=== PATIENT | female | born 1945 | race African-American/Black ===

== ENCOUNTER 2022-12-01 16:10 | Emergency (ER) | payer MEDICARE ==
[2022-12-01 16:22] VITALS: BP 143/58
--- NOTE | 2022-12-01 16:24 | ED Physician Documentation ---
History of Present Illness - Stated complaint Stated Complaint: LOWER BACK/HIP PX - Chief complaint Chief Complaint: Back Pain - History obtained from History obtained from: Patient - Additonal information Additional information: This is a twin 77-year-old woman with chronic musculoskeletal pain, back, both hips, left shoulder. She just moved from [place] and ran out 2 days ago of her long-acting morphine 15 mg twice a day that she took for this. She has an appointment with Dr. Valles to establish care in early December. PD PAST MEDICAL HISTORY - Present Medications Home Medications: Ambulatory Orders Medication Instructions Recorded Confirmed Atorvastatin [Lipitor] 20 mg PO HS 12/01/22 12/01/22 Estrogens, Conjugated Cream 1 gm VG QPM 12/01/22 12/01/22 [Premarin Cream] Lidocaine Patch 5% [Lidoderm Patch] 1 each TOP DAILY 12/01/22 12/01/22 Losartan Potassium 100 mg PO DAILY 12/01/22 12/01/22 Metoprolol Tartrate [Lopressor] 25 mg PO DAILY 12/01/22 12/01/22 Morphine ER [Ms Contin] 15 mg PO Q12H 12/01/22 12/01/22 Morphine ER [Ms Contin] 15 mg PO Q12H #20 tablet 12/01/22 Naloxone HCl [Narcan] 4 mg NS ONCE PRN 12/01/22 12/01/22 Pioglitazone [Actos] 15 mg PO DAILY 12/01/22 12/01/22 Timolol 0.5% Ophth Drops [Timoptic 1 drops OPTH BID 12/01/22 12/01/22 0.5% Ophth Drops] amLODIPine [Norvasc] 10 mg PO DAILY 12/01/22 12/01/22 - Allergies Allergies/Adverse Reactions: Allergies Allergy/AdvReac Type Severity Reaction Status Date / Time codeine AdvReac Unknown Verified 12/01/22 16:22 lisinopril AdvReac Unknown Verified 12/01/22 16:22 methocarbamol [From Robaxin] AdvReac Unknown Verified 12/01/22 16:23 PD ED PE NORMAL - Vitals Vital signs reviewed: Yes - General General: Alert and oriented X 3, No acute distress - Abdomen Abdomen: Non tender - Back Back: No spinal TTP - Neuro Neuro: Alert and oriented X 3, Normal speech Results - Vitals Vitals: Vital Signs - 24 hr 12/01/22 16:17 Temperature 36.7 C Heart Rate 90 Respiratory 18 Rate Blood Pressure 143/58 H O2 Saturation 99 Oxygen O2 Source Room air PD Medical Decision Making - ED course ED course: No evidence of acute emergency medical condition. She simply ran out of her medications due to removed. Discussed with her that the emergency department would not refill medications more than this 1 time. Departure - Departure Disposition: 01 Home, Self Care Clinical Impression: Chronic back pain Condition: Good Record reviewed to determine appropriate education?: Yes Instructions: ED Chronic Pain Management Prescriptions: Morphine ER [Ms Contin] 15 mg PO Q12H #20 tablet Comments: I sent your prescription electronically to [facility] in [place]. As discussed, the emergency department cannot refill chronic narcotics generally and the refill today will be a one-time occurrence to allow you to get some relief of your chronic pain until you see Dr. Valles. Return for new symptoms or for any concern for medical emergency. I am prescribing a short course of narcotic pain medication for you. These are potentially dangerous and addictive medications that should be used carefully. These medications may constipate you. Take an laou-qlb-wwlsnja stool softener (docusate) twice daily with plenty of water while taking these medications. If you go 24 hours without a bowel movement, take rgns-eqo-tnabewy miralax, per package instructions. Do not drink or drive while taking these medications. If you received narcotic or sedating medications while in the emergency department, do not drive for 24 hours. Store this medication in a safe, secure place and out of reach of children. It is a violation of federal law to give or sell this medication to another person or to use in a manner other than prescribed. The ED will not refill narcotic prescriptions, including prescriptions lost or stolen. To dispose of unwanted medications: 1. [facility] provides a drop box for medication in pill form only (no liquids) 8:00 am to 4:30 p.m. Tuesday-Tuesday in the lobby of the [facility], [address] [place] [address]. Empty pills into ziplock bag before disposal. Call [phone] for information. 2.[employer] is a free service available to all [facility] residents. Go to [email or web address] Note that many narcotic pain relievers also contain Tylenol/acetaminophen. Please ensure that your total dose of acetaminophen from all sources does not exceed 3 g (3000 mg) per day. Discharge Date/Time: 12/01/22 16:52
[2022-12-01] MEDS ORDERED: MORPHINE ER 15 MG TABLET PO STA ×2 (16:26→16:35)
== END 2022-12-01 16:52 | disposition home or self-care (01) ==
LOC: ED 16:10
DX: M54.50 Low back pain, unspecified (principal); G89.29 Other chronic pain; Z79.899 Other long term (current) drug therapy
CPT/HCPCS: 99282; 99283; A9270

== ENCOUNTER 2022-12-10 13:01 | Emergency (ER) | payer MEDICARE ==
[2022-12-10 13:21] VITALS: BP 118/48
--- NOTE | 2022-12-10 13:33 | ED Physician Documentation ---
PD HPI HEADACHE - Stated complaint Stated Complaint: HEADACHE - Chief complaint Chief Complaint: Neuro - History obtained from History obtained from: Patient - History of Present Illness Timing - onset: How many weeks ago (2) Timing - onset during: Light activity Timing - duration: Weeks (2) Timing - details: Gradual onset, Still present, Waxing and waning Worst headache ever?: No: Worst headache ever? Location: Front, Global Quality: Throbbing, Aching Associated symptoms: No: Fever, Stiff neck, Nausea, Weakness, Numbness, Vision changes Contributing factors: No: Hypertension, Recent illness, Trauma Similar symptoms before: Diagnosis (history of migraines, intermittent headaches in recent past. Intermittent and usually just day or two. No interval headaches. Has had current one for two weeks most of the time. Recently moved to [facility] with [employer] and does not have PMD here yet. Appt in about a month.) Recently seen: Not recently seen Review of Systems Constitutional: denies: Fever, Chills Eyes: denies: Loss of vision, Decreased vision Nose: denies: Rhinorrhea / runny nose, Congestion Throat: denies: Sore throat Respiratory: denies: Cough Skin: denies: Rash Neurologic: reports: Headache. 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 HEENT: Cataracts - Present Medications Home Medications: Ambulatory Orders Medication Instructions Recorded Confirmed Atorvastatin [Lipitor] 20 mg PO HS 12/01/22 12/01/22 Estrogens, Conjugated Cream 1 gm VG QPM 12/01/22 12/01/22 [Premarin Cream] Lidocaine Patch 5% [Lidoderm Patch] 1 each TOP DAILY 12/01/22 12/01/22 Losartan Potassium 100 mg PO DAILY 12/01/22 12/01/22 Metoprolol Tartrate [Lopressor] 25 mg PO DAILY 12/01/22 12/01/22 Morphine ER [Ms Contin] 15 mg PO Q12H 12/01/22 12/01/22 Morphine ER [Ms Contin] 15 mg PO Q12H #20 tablet 12/01/22 Naloxone HCl [Narcan] 4 mg NS ONCE PRN 12/01/22 12/01/22 Pioglitazone [Actos] 15 mg PO DAILY 12/01/22 12/01/22 Timolol 0.5% Ophth Drops [Timoptic 1 drops OPTH BID 12/01/22 12/01/22 0.5% Ophth Drops] amLODIPine [Norvasc] 10 mg PO DAILY 12/01/22 12/01/22 HYDROcod/ACETAM 5/325 [[place] 5/325] 1 ea PO Q6H PRN #15 tablet 12/10/22 dexAMETHasone [Decadron] 4 mg PO DAILY #5 tablet 12/10/22 - Allergies Allergies/Adverse Reactions: Allergies Allergy/AdvReac Type Severity Reaction Status Date / Time codeine AdvReac Unknown Verified 12/01/22 16:22 lisinopril AdvReac Unknown Verified 12/01/22 16:22 methocarbamol [From Robaxin] AdvReac Unknown Verified 12/01/22 16:23 - Social History Does the pt smoke?: Yes Smoking Status: Current every day smoker Does the pt drink ETOH?: No Does the pt have substance abuse?: No - Immunizations Immunizations are current?: Yes PD ED PE NORMAL - Vitals Vital signs reviewed: Yes - General General: Alert and oriented X 3, No acute distress, Well developed/nourished - HEENT HEENT: PERRL, EOMI - Neck Neck: Supple, no meningeal sign, No bony TTP, No adenopathy - Cardiac Cardiac: RRR, No murmur - Respiratory Respiratory: Clear bilaterally - Abdomen Abdomen: Soft, Non tender - Derm Derm: Normal color, Warm and dry - Extremities Extremities: No edema, No calf tenderness / cord Results - Vitals Vitals: Oxygen O2 Source Room air PD Medical Decision Making - ED course Complexity details: considered differential (consider prolonged migraine. Her prior headaches however do not have migraine chracter necessarily. Other forms headache instead. No headache between flares. No neuro symptoms focally. She say s seen in ER back in home state 3 months ago with head CT at that time. ), d/w patient ED course: the patient with 2 week headache without focal neuro deficits. Functioning okay with ADLs and moving activities. She states she had CT head 3 months ago that was okay, and did not feel another was needed. I was going to give her IV fluids and meds targeted for migraine. She changed her mind and declined that approach, and instead would prefer to just get Rx for her and to head home with . Departure - Departure Disposition: 01 Home, Self Care Clinical Impression: Headache Condition: Stable Record reviewed to determine appropriate education?: Yes Instructions: ED Cephalgia Unspecified Prescriptions: dexAMETHasone [Decadron] 4 mg PO DAILY #5 tablet HYDROcod/ACETAM 5/325 [[place] 5/325] 1 ea PO Q6H PRN #15 tablet PRN Reason: Pain Comments: We can try combination of the anti-inflammatory along with some Tylenol at 500 mg 4 times daily for the next week or so to help with your headache. Recheck if not improved well over the next day or 2. Add hydrocodone every 6 hours if needed for headache in the short-term. Stay well-hydrated and continue your other usual medicines. Recheck if not improved over the next several days or so return if worsening. I sent prescriptions to [facility] pharmacy. I am prescribing a short course of narcotic pain medication for you. These are potentially dangerous and addictive medications that should be used carefully. These medications may constipate you. Take an jpqy-agj-ubgcirv stool softener s uch as docusate twice daily with plenty of water while taking these medications. If you go 24 hours without a bowel movement, take ubsa-bej-beyvsux MiraLAX, per package instructions. Do not drink or drive while taking these medications. If you received narcotic or sedating medications while in the emergency department do not drive for 24 hours. Store this medication in a safe, secure place and out of reach of children. It is a violation of federal law to give or sell this medication to another person or to use in a manner other than prescribed. The ED will not refill narcotic prescriptions, including prescriptions lost or stolen. You can dispose of unwanted medications at the [facility]'s office or at several pharmacies such as [facility]. Forms: PCP List Discharge Date/Time: 12/10/22 15:47
[2022-12-10] MEDS ORDERED: KETOROLAC 15 MG/ML VIAL IVP STA (14:22)
[2022-12-10] MEDS ORDERED: SODIUM CHLORIDE 0.9% 1,000 ML IV STA (14:22)
[2022-12-10] MEDS ORDERED: ONDANSETRON 4 MG/2 ML VIAL IVP STA (14:23)
[2022-12-10] MEDS ORDERED: ACETAMINOPHEN 325 MG TABLET PO STA (14:23)
[2022-12-10] MEDS ORDERED: KETOROLAC 15 MG/ML VIAL IM STA (14:54)
== END 2022-12-10 15:47 | disposition home or self-care (01) ==
LOC: ED 13:01
DX: R51.9 Headache, unspecified (principal); F17.200 Nicotine dependence, unspecified, uncomplicated
CPT/HCPCS: 96372; 99283; A9270; 80053; 83690; 85025; 85651

== ENCOUNTER 2022-12-14 15:43 | Emergency (ER) | payer MEDICARE ==
[2022-12-14 16:07] VITALS: BP 130/60; O2SAT 98
[2022-12-14] MEDS ORDERED: MORPHINE ER 15 MG TABLET PO STA (17:06)
--- NOTE | 2022-12-14 17:10 | ED Physician Documentation ---
History of Present Illness - Stated complaint Stated Complaint: SHOULDER/BACK PX - Chief complaint Chief Complaint: General - History obtained from History obtained from: Patient - History of Present Illness Timing: Chronic Pain level max: 8 Pain level now: 8 - Additonal information Additional information: Patient is a 77-year-old female who states that she recently moved here from [place]. She states she has established with a primary care provider and has an appointment in about [address] Valles. She has not seen him yet however. She states that she is usually on morphine 15 mg of the ER twice a day. Has been on this for several years. She states she is out of her medications and requesting pain medication refills. No new injuries. No new symptoms. 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 HEENT: Cataracts - Present Medications Home Medications: Ambulatory Orders Medication Instructions Recorded Confirmed Atorvastatin [Lipitor] 20 mg PO HS 12/01/22 12/01/22 Estrogens, Conjugated Cream 1 gm VG QPM 12/01/22 12/01/22 [Premarin Cream] Lidocaine Patch 5% [Lidoderm Patch] 1 each TOP DAILY 12/01/22 12/01/22 Losartan Potassium 100 mg PO DAILY 12/01/22 12/01/22 Metoprolol Tartrate [Lopressor] 25 mg PO DAILY 12/01/22 12/01/22 Morphine ER [Ms Contin] 15 mg PO Q12H 12/01/22 12/01/22 Morphine ER [Ms Contin] 15 mg PO Q12H #20 tablet 12/01/22 Naloxone HCl [Narcan] 4 mg NS ONCE PRN 12/01/22 12/01/22 Pioglitazone [Actos] 15 mg PO DAILY 12/01/22 12/01/22 Timolol 0.5% Ophth Drops [Timoptic 1 drops OPTH BID 12/01/22 12/01/22 0.5% Ophth Drops] amLODIPine [Norvasc] 10 mg PO DAILY 12/01/22 12/01/22 HYDROcod/ACETAM 5/325 [[place] 5/325] 1 ea PO Q6H PRN #15 tablet 12/10/22 dexAMETHasone [Decadron] 4 mg PO DAILY #5 tablet 12/10/22 Morphine ER [Ms Contin] 15 mg PO Q12H PRN #6 tablet 12/14/22 - Allergies Allergies/Adverse Reactions: Allergies Allergy/AdvReac Type Severity Reaction Status Date / Time codeine AdvReac Unknown Verified 12/14/22 15:52 lisinopril AdvReac Unknown Verified 12/14/22 15:52 methocarbamol [From Robaxin] AdvReac Unknown Verified 12/14/22 15:52 - Social History Does the pt smoke?: Yes Smoking Status: Current every day smoker Does the pt drink ETOH?: No Does the pt have substance abuse?: No - Immunizations Immunizations are current?: Yes PD ED PE NORMAL - Vitals Vital signs reviewed: Yes - General General: Alert and oriented X 3, No acute distress, Well developed/nourished - HEENT HEENT: Moist mucous membranes - Neck Neck: Supple, no meningeal sign - Cardiac Cardiac: RRR, Strong equal pulses - Respiratory Respiratory: No respiratory distress, Clear bilaterally - Back Back: No spinal TTP - Derm Derm: Warm and dry - Extremities Extremities: No edema, No calf tenderness / cord - Neuro Neuro: Alert and oriented X 3 - Psych Psych: Normal mood, Normal affect Results - Vitals Vitals: Vital Signs - 24 hr 12/14/22 15:52 Temperature 36.5 C Heart Rate 100 Respiratory 16 Rate Blood Pressure 130/60 O2 Saturation 98 Oxygen O2 Source Room air PD Medical Decision Making - ED course Complexity details: considered differential, d/w patient ED course: Patient here requesting refills of her chronic pain medications. Patient was informed this will be her second pain medication prescription from this emergency department. Informed her that all further pain medication refills will need to come from her primary care provider. Recommend she call her primary care provider in the morning to discuss her chronic pain medication. Patient has no new complaints or symptoms today. No loss of bowel or bladder control. No focal weakness. No fevers. No trauma. Patient counseled regarding signs and symptoms for which I believe and urgent re-evaluation would be necessary. Patient with good understanding of and agreement to plan and is comfortable going home at this time This document was made in part using voice recognition software. While efforts are made to proofread this document, sound alike and grammatical errors may occur. Departure - Departure Disposition: 01 Home, Self Care Clinical Impression: Chronic back pain Qualifiers: Back pain location: back pain in unspecified location Back pain laterality: unspecified Qualified Code(s): M54.9 - Dorsalgia, unspecified Condition: Good Instructions: ED Chronic Pain Management, ED Neck Back Pain General Follow-Up: All Valles MD [Provider Admit Priv/Credential] - All Valles MD [Provider Admit Priv/Credential] - Prescriptions: Morphine ER [Ms Contin] 15 mg PO Q12H PRN #6 tablet PRN Reason: pain Comments: As we discussed, we are unable to continue to refill your narcotic pain medication from the emergency department. All further refills will need to come from your primary care provider. I would recommend trying to call them to see if you can get an earlier appointment. You should also take your medical records with you to your first appointment. Your prescription was sent to [facility] in [place]. I am prescribing a short course of narcotic pain medication for you. These are potentially dangerous and addictive medications that should be used carefully. These medications may constipate you. Take an zgqp-pma-uqzxfed stool softener (docusate) twice daily with plenty of water while taking these medications. If you go 24 hours without a bowel movement, take mvih-zhl-beaangg miralax, per package instructions. Do not drink or drive while taking these medications. If you received narcotic or sedating medications while in the emergency department, do not drive for 24 hours. Store this medication in a safe, secure place and out of reach of children. It is a violation of federal law to give or sell this medication to another person or to use in a manner other than prescribed. The ED will not refill narcotic prescriptions, including prescriptions lost or stolen. To dispose of unwanted medications: 1. [facility] [address] in [place] has a medication drop box. They accept prescription medications (in pill form) Tuesday through Tuesday 9:00 a.m. to 5:00 p.m. 2. [facility] accepts prescription medications (in pill form only) for disposal year round. Call for more information. 3. Contact the [facility] for the next [facility] sponsored prescription drug collection event. , [phone], or [phone]; Forms: PCP List Discharge Date/Time: 12/14/22 17:20
== END 2022-12-14 17:20 | disposition home or self-care (01) ==
LOC: ED 15:43
DX: Z76.0 Encounter for issue of repeat prescription (principal); M54.9 Dorsalgia, unspecified; I10 Essential (primary) hypertension; F17.200 Nicotine dependence, unspecified, uncomplicated
CPT/HCPCS: 99282; 99283; A9270

== ENCOUNTER 2022-12-17 21:03 | Outpatient (CLI) | payer MEDICARE | END 2022-12-17 23:59 | disposition short-term general hospital (02) | LOC: EMS 21:03 | DX: R10.84 Generalized abdominal pain (principal); R25.3 Fasciculation; R11.0 Nausea; R20.8 Other disturbances of skin sensation | CPT/HCPCS: A0425; A0427 ==

== ENCOUNTER 2023-06-01 20:15 | Outpatient (CLI) | payer MEDICARE, MEDICAID | END 2023-06-01 23:59 | disposition critical access hospital (66) | LOC: EMS 20:15 | DX: E11.65 Type 2 diabetes mellitus with hyperglycemia (principal); R00.0 Tachycardia, unspecified; I11.0 Hypertensive heart disease with heart failure; R42 Dizziness and giddiness; R51.9 Headache, unspecified; Z79.84 Long term (current) use of oral hypoglycemic drugs | CPT/HCPCS: A0425; A0429 ==

== ENCOUNTER 2023-06-01 20:35 | Emergency (ER) | payer MEDICARE, MEDICAID ==
[2023-06-01 21:12] LABS: BASOPHILS % (AUTO) 0.3 %; HCT - HEMATOCRIT 35.8 % (37.0-47.0); LYMPHOCYTES # (AUTO) 1.9 10^3/uL (1.5-3.5); LYMPHOCYTES % (AUTO) 12.4 %; MEAN CORPUSCULAR HGB CONC 33.5 g/dL (32.0-36.0); MEAN CORPUSCULAR VOLUME 86.5 fL (81.0-99.0); MEAN PLATELET VOLUME 10.2 fL (7.9-10.8); MONOCYTES # (AUTO) 0.7 10^3/uL (0.0-1.0); MONOCYTES % (AUTO) 4.6 %; NEUTROPHILS % (AUTO) 78.1 %; NRBC ABSOLUTE COUNT (AUTO) 0.11 x10^3/uL; NUCLEATED RED BLOOD CELLS AUTO 0.7 /100WBC; PLT - PLATELET COUNT 239 10^3/uL (130-450); RED BLOOD COUNT 4.14 10^6/uL (4.20-5.40); RED CELL DISTRIBUTION WIDTH 14.6 % (12.0-15.0); WHITE BLOOD COUNT 15.4 x10^3/uL (4.8-10.8)
[2023-06-01 21:21] LABS: SLIDE REVIEW? Indicated
[2023-06-01 21:52] LABS: VBG BASE EXCESS -0.7 mmol/L (-2 - +2); VBG OXYGEN SATURATION 93.2 % (60-80); VBG PCO2 30.8 mmHg (41-51); VBG PH 7.472 (7.31-7.41); VBG PO2 67.4 mmHg (25-47)
[2023-06-01 21:55] LABS: ALBUMIN 3.7 g/dL (3.2-5.5); ALBUMIN/GLOBULIN RATIO 1.2 (1.0-2.2); BILIRUBIN,TOTAL 0.5 mg/dL (0.2-1.0); CALCIUM 9.3 mg/dL (8.5-10.3); CREATININE 1.4 mg/dL (0.6-1.3); POTASSIUM 3.8 mmol/L (3.5-4.5); TOTAL PROTEIN 6.8 g/dL (6.4-8.9)
[2023-06-01 22:00] LABS: BILIRUBIN,URINE NEGATIVE (NEGATIVE); GLUCOSE, URINE (UA) 500 mg/dL (NEGATIVE); KETONES,URINE (UA) NEGATIVE (NEGATIVE); LEUKOCYTE ESTERASE, URINE SMALL (NEGATIVE); NITRITE,URINE NEGATIVE (NEGATIVE); OCCULT BLOOD,URINE SMALL (NEGATIVE); PROTEIN,URINE NEGATIVE (NEGATIVE); UROBILINOGEN,URINE 0.2 (NORMAL) E.U./dL (NORMAL)
[2023-06-01 22:05] LABS: CLARITY,URINE HAZY (CLEAR)
[2023-06-01 22:14] LABS: AMORPHOUS SEDIMENT,UR Rare /LPF; BACTERIA,URINE Many /HPF (None Seen); SQUAMOUS EPITHELIAL CELL,UR FEW Squamous (<= Few); WBC CLUMPS,URINE PRESENT
[2023-06-01] MEDS ORDERED: INSULIN REGULAR HUMAN 300 UNIT/3 ML VIAL IVP STA (22:38)
[2023-06-01 22:53] LABS: DIFFERENTIAL COMMENT MANUAL=AUTO DIFF; PLATELET ESTIMATE, MANUAL NORMAL (130-450,000) (NORMAL); PLATELET MORPHOLOGY NORMAL APPEARANCE (NORMAL); RBC MORPHOLOGY (MULTIPLE) NORMAL APPEARANCE (NORMAL)
--- NOTE | 2023-06-02 00:57 | ED Physician Documentation ---
History of Present Illness - Stated complaint Stated Complaint: HYPERGLYCEMIA - Chief complaint Chief Complaint: General - History obtained from History obtained from: Patient, Family () - Additonal information Additional information: 77-year-old woman with past medical history of diabetes, high blood pressure, hyperlipidemia, coronary artery disease presents with headache, malaise, generalized weakness for the past couple days and hyperglycemia this evening at her assisted living facility prompting her to come to the ER. Denies fever, chills, chest pain, shortness of breath, cough, vomiting, diarrhea, urinary symptoms. Review of Systems Constitutional: denies: Fever, Chills Nose: denies: Rhinorrhea / runny nose Throat: denies: Sore throat Cardiac: denies: Chest pain / pressure Respiratory: denies: Dyspnea, Cough GI: reports: Nausea. 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 HEENT: Cataracts - Present Medications Home Medications: Ambulatory Orders Medication Instructions Recorded Confirmed Atorvastatin [Lipitor] 20 mg PO HS 12/01/22 12/01/22 Estrogens, Conjugated Cream 1 gm VG QPM 12/01/22 12/01/22 [Premarin Cream] Lidocaine Patch 5% [Lidoderm Patch] 1 each TOP DAILY 12/01/22 12/01/22 Losartan Potassium 100 mg PO DAILY 12/01/22 12/01/22 Metoprolol Tartrate [Lopressor] 25 mg PO DAILY 12/01/22 12/01/22 Morphine ER [Ms Contin] 15 mg PO Q12H 12/01/22 12/01/22 Morphine ER [Ms Contin] 15 mg PO Q12H #20 tablet 12/01/22 Naloxone HCl [Narcan] 4 mg NS ONCE PRN 12/01/22 12/01/22 Pioglitazone [Actos] 15 mg PO DAILY 12/01/22 12/01/22 Timolol 0.5% Ophth Drops [Timoptic 1 drops OPTH BID 12/01/22 12/01/22 0.5% Ophth Drops] amLODIPine [Norvasc] 10 mg PO DAILY 12/01/22 12/01/22 HYDROcod/ACETAM 5/325 [[place] 5/325] 1 ea PO Q6H PRN #15 tablet 12/10/22 dexAMETHasone [Decadron] 4 mg PO DAILY #5 tablet 12/10/22 Morphine ER [Ms Contin] 15 mg PO Q12H PRN #6 tablet 12/14/22 Cefpodoxime Proxetil [Vantin] 200 mg PO Q12H #28 tablet 06/02/23 - Allergies Allergies/Adverse Reactions: Allergies Allergy/AdvReac Type Severity Reaction Status Date / Time codeine AdvReac Unknown Verified 06/01/23 20:42 lisinopril AdvReac Unknown Verified 06/01/23 20:42 methocarbamol [From Robaxin] AdvReac Unknown Verified 06/01/23 20:42 - Social History Does the pt smoke?: Yes Smoking Status: Current every day smoker Does the pt drink ETOH?: No Does the pt have substance abuse?: No - Immunizations Immunizations are current?: Yes PD ED PE NORMAL - Vitals Vital signs reviewed: Yes - General General: Alert and oriented X 3, No acute distress, Other (Elderly appearing) - HEENT HEENT: Atraumatic, PERRL, EOMI, Moist mucous membranes, Pharynx benign - Neck Neck: Supple, no meningeal sign - Cardiac Cardiac: RRR - Respiratory Respiratory: No respiratory distress, Clear bilaterally - Abdomen Abdomen: Non tender, Non distended - Derm Derm: Normal color, Warm and dry - Extremities Extremities: No deformity, Other (1+ bilateral pitting edema) - Neuro Neuro: Alert and oriented X 3, No motor deficit, No sensory deficit - Psych Psych: Normal mood, Normal affect Results - Vitals Vitals: Vital Signs - 24 hr 06/01/23 20:42 Temperature 36.8 C Heart Rate 100 Respiratory 20 Rate Blood Pressure 165/95 H O2 Saturation 100 Oxygen O2 Source Room air - Labs Labs: Laboratory Tests 06/01/23 06/01/23 06/01/23 21:00 21:00 21:00 WBC 15.4 H RBC 4.14 L Hgb 12.0 Hct 35.8 L MCV 86.5 MCH 29.0 MCHC 33.5 RDW 14.6 Plt Count 239 MPV 10.2 Neut # (Auto) 12.0 H Lymph # (Auto) 1.9 [place] # (Auto) 0.7 Eos # (Auto) 0.0 Baso # (Auto) 0.0 Absolute Nucleated RBC 0.11 Band Neuts % (Manual) Not Reportable Abnorm Lymph % (Manual) Not Reportable Nucleated RBC % 0.7 Neutrophils # (Manual) Not Reportable Lymphocytes # (Manual) Not Reportable Monocytes # (Manual) Not Reportable Eosinophils # (Manual) Not Reportable Basophils # (Manual) Not Reportable Differential Comment MANUAL=AUTO DIFF Manual Slide Review Indicated Platelet Estimate NORMAL (130-450,000) Platelet Morphology NORMAL APPEARANCE RBC Morph Micro Appear NORMAL APPEARANCE VBG pH VBG pCO2 VBG pO2 VBG HCO3 VBG Total CO2 VBG O2 Saturation VBG Base Excess Sodium 129 L Potassium 3.8 Chloride 88 L Carbon Dioxide 27 Anion Gap 14.0 H BUN 96 H* Creatinine 1.4 H Estimated GFR (MDRD) 44 L Glucose 509 H* POC Whole Bld Glucose Calcium 9.3 Total Bilirubin 0.5 AST 14 ALT 26 Alkaline Phosphatase 95 Total Protein 6.8 Albumin 3.7 Globulin 3.1 Albumin/Globulin Ratio 1.2 Lipase 204 H Urine Color Urine Clarity Urine pH Ur Specific [place] Urine Protein Urine Glucose (UA) Urine Ketones Urine Occult Blood Urine Nitrite Urine Bilirubin Urine Urobilinogen Ur Leukocyte Esterase Urine RBC Urine WBC Urine WBC Clumps Ur Squamous Epith Cells Amorphous Sediment Urine Bacteria Ur Microscopic Review Urine Culture Comments Serum Ketones NEGATIVE 06/01/23 06/01/23 06/01/23 21:30 21:48 22:29 WBC RBC Hgb Hct MCV MCH MCHC RDW Plt Count MPV Neut # (Auto) Lymph # (Auto) [place] # (Auto) Eos # (Auto) Baso # (Auto) Absolute Nucleated RBC Band Neuts % (Manual) Abnorm Lymph % (Manual) Nucleated RBC % Neutrophils # (Manual) Lymphocytes # (Manual) Monocytes # (Manual) Eosinophils # (Manual) Basophils # (Manual) Differential Comment Manual Slide Review Platelet Estimate Platelet Morphology RBC Morph Micro Appear VBG pH 7.472 H VBG pCO2 30.8 L VBG pO2 67.4 H VBG HCO3 22.0 L VBG Total CO2 23.0 L VBG O2 Saturation 93.2 H VBG Base Excess -0.7 Sodium Potassium Chloride Carbon Dioxide Anion Gap BUN Creatinine Estimated GFR (MDRD) Glucose POC Whole Bld Glucose 441 H Calcium Total Bilirubin AST ALT Alkaline Phosphatase Total Protein Albumin Globulin Albumin/Globulin Ratio Lipase Urine Color YELLOW Urine Clarity HAZY Urine pH 6.0 Ur Specific [place] <=1.005 Urine Protein NEGATIVE Urine Glucose (UA) 500 H Urine Ketones NEGATIVE Urine Occult Blood SMALL H Urine Nitrite NEGATIVE Urine Bilirubin NEGATIVE Urine Urobilinogen 0.2 (NORMAL) Ur Leukocyte Esterase SMALL H Urine RBC 6-10 H Urine WBC 6-10 H Urine WBC Clumps PRESENT Ur Squamous Epith Cells FEW Squamous Amorphous Sediment Rare Urine Bacteria Many H Ur Microscopic Review INDICATED Urine Culture Comments INDICATED Serum Ketones 06/02/23 00:47 WBC RBC Hgb Hct MCV MCH MCHC RDW Plt Count MPV Neut # (Auto) Lymph # (Auto) [place] # (Auto) Eos # (Auto) Baso # (Auto) Absolute Nucleated RBC Band Neuts % (Manual) Abnorm Lymph % (Manual) Nucleated RBC % Neutrophils # (Manual) Lymphocytes # (Manual) Monocytes # (Manual) Eosinophils # (Manual) Basophils # (Manual) Differential Comment Manual Slide Review Platelet Estimate Platelet Morphology RBC Morph Micro Appear VBG pH VBG pCO2 VBG pO2 VBG HCO3 VBG Total CO2 VBG O2 Saturation VBG Base Excess Sodium Potassium Chloride Carbon Dioxide Anion Gap BUN Creatinine Estimated GFR (MDRD) Glucose POC Whole Bld Glucose 371 H Calcium Total Bilirubin AST ALT Alkaline Phosphatase Total Protein Albumin Globulin Albumin/Globulin Ratio Lipase Urine Color Urine Clarity Urine pH Ur Specific [place] Urine Protein Urine Glucose (UA) Urine Ketones Urine Occult Blood Urine Nitrite Urine Bilirubin Urine Urobilinogen Ur Leukocyte Esterase Urine RBC Urine WBC Urine WBC Clumps Ur Squamous Epith Cells Amorphous Sediment Urine Bacteria Ur Microscopic Review Urine Culture Comments Serum Ketones PD Medical Decision Making - ED course ED course: 77-year-old woman presents with uncomplicated hyperglycemia here in the emergency department that responded to IV insulin treatment. She has leukocytosis with white blood cell count of 15.4 and elevated BUN/creatinine of 96 and 1.4 without previous labs available. u/a shows +leukocyte esterase concerning for infection. Though she doesn't have dysuria or back pain, her generalized symptoms could be explained by uti therefore decision was made to go ahead and treat it. [facility]. return precautions given. plan to f/u outpatient with her pcp. Departure - Departure Disposition: Home, Self Care Clinical Impression: Hyperglycemia, Malaise, UTI (urinary tract infection) Condition: Stable Instructions: Hyperglycemia Prescriptions: Cefpodoxime Proxetil [Vantin] 200 mg PO Q12H #28 tablet Comments: You were seen in the emergency department for high blood sugar. You also had a high white blood cell count which can be a marker of inflammation in the body. If you develop fever or new or worsening symptoms then please return to the emergency department. Please follow-up with your primary care provider and return to the emergency department if you have any new or worsening symptoms or other concerns. Forms: PCP List
[2023-06-02 01:54] VITALS: BP 130/69; O2SAT 96
== END 2023-06-02 01:30 | disposition home or self-care (01) ==
LOC: EDUNIT# → ED 20:35
DX: N39.0 Urinary tract infection, site not specified (principal); R73.9 Hyperglycemia, unspecified; I10 Essential (primary) hypertension; F17.200 Nicotine dependence, unspecified, uncomplicated
CPT/HCPCS: 36415; 80053; 81001; 82009; 82803; 83690; 85025; 87086; 99283; 99284; J1815; 81003

== ENCOUNTER 2023-06-11 10:17 | Outpatient (CLI) | payer MEDICARE, MEDICAID | END 2023-06-11 23:59 | disposition critical access hospital (66) | LOC: EMS 10:17 | DX: R53.1 Weakness (principal); R41.0 Disorientation, unspecified; R53.81 Other malaise; R63.0 Anorexia | CPT/HCPCS: A0425; A0429 ==

== ENCOUNTER 2023-06-11 10:34 | Inpatient (IN) | payer MEDICARE, MEDICAID ==
--- NOTE | 2023-06-11 10:52 | ED Physician Documentation ---
PD HPI ALTERED MENTAL STATUS - Stated complaint Stated Complaint: WEAKNESS - History obtained from History obtained from: Patient, Family (spouse), EMS - History of Present Illness Timing - onset: Yesterday (feeling of general weakness reprised.), How many weeks ago (onset of general weakness with malaise and less intake about 2 weeks ago. Seen in ER 06/01/23 with eval, IV fluids, Labs and UA concerning for UTI. D/C on abx. Spouse says was improved reasonably for a week or so, then symptoms again the past couple of days.) Timing - details: Gradual onset, Still present, Waxing and waning (was improved for a week after last ER visit. Symptoms again the past 2-3 days.) Quality / character: Less responsive Associated symptoms: Dyspnea, NVD (nausea and less intake without diarrhea.), General weakness. No: Fever, Headache, Cough Contributing factors: Diabetic, Recent illness (seen ER 06/01/23 with possible UTI dx.) Basline status: Alert and oriented X 3, Ambulatory Similar symptoms before: No diagnosis Recently seen: Emergency Dept Review of Systems Constitutional: reports: Myalgias, Fatigue. denies: Fever Nose: denies: Rhinorrhea / runny nose, Congestion Throat: reports: Sore throat. denies: Oral lesions / sores Cardiac: denies: Chest pain / pressure Respiratory: reports: Dyspnea. denies: Cough GI: reports: Nausea. denies: Abdominal Pain, Vomiting, Diarrhea : denies: Dysuria Skin: denies: Rash Neurologic: reports: Generalized weakness. 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 HEENT: Cataracts - Present Medications Home Medications: Ambulatory Orders Medication Instructions Recorded Confirmed Atorvastatin [Lipitor] 20 mg PO HS 12/01/22 06/11/23 Estrogens, Conjugated Cream 1 gm VG QPM 12/01/22 06/11/23 [Premarin Cream] Lidocaine Patch 5% [Lidoderm Patch] 1 each TOP DAILY 12/01/22 06/11/23 Losartan Potassium 25 mg PO DAILY 12/01/22 06/11/23 Metoprolol Tartrate [Lopressor] 25 mg PO DAILY 12/01/22 06/11/23 Naloxone HCl [Narcan] 4 mg NS ONCE PRN 12/01/22 06/11/23 Timolol 0.5% Ophth Drops [Timoptic 1 drops OPTH BID 12/01/22 06/11/23 0.5% Ophth Drops] dexAMETHasone [Decadron] 4 mg PO DAILY #5 tablet 12/10/22 06/11/23 Morphine ER [Ms Contin] 15 mg PO Q12H PRN #6 tablet 12/14/22 06/11/23 Amitriptyline [Elavil] 10 mg PO HS 06/11/23 06/11/23 Docusate Sodium [Dulcolax Stool 100 mg PO DAILY 06/11/23 06/11/23 Softener] Furosemide [Lasix] 40 mg PO DAILY 06/11/23 06/11/23 hydroCHLOROthiazide [Hydrodiuril] 25 mg PO DAILY 06/11/23 06/11/23 metFORMIN [Glucophage] 500 mg PO ONCE 06/11/23 06/11/23 - Allergies Allergies/Adverse Reactions: Allergies Allergy/AdvReac Type Severity Reaction Status Date / Time codeine AdvReac Unknown Verified 06/01/23 20:42 lisinopril AdvReac Unknown Verified 06/01/23 20:42 methocarbamol [From Robaxin] AdvReac Unknown Verified 06/01/23 20:42 nicotine [From Nicoderm CQ] AdvReac Unknown Verified 06/11/23 10:51 - Social History Does the pt smoke?: Yes Smoking Status: Current every day smoker Does the pt drink ETOH?: No Does the pt have substance abuse?: No - Immunizations Immunizations are current?: Yes PD ED PE NORMAL - Vitals Vital signs reviewed: Yes - General General: Alert and oriented X 3, No acute distress, Well developed/nourished - HEENT HEENT: Pharynx benign - Neck Neck: Supple, no meningeal sign, No adenopathy - Cardiac Cardiac: RRR, No murmur - Respiratory Respiratory: No respiratory distress, Clear bilaterally - Abdomen Abdomen: Soft, Non tender, Non distended. No: Normal bowel sounds (decreased) - Back Back: No CVA TTP - Derm Derm: Normal color, Warm and dry - Extremities Extremities: No deformity, No calf tenderness / cord, Other (1+ edema in both lower legs without tednerness. ) - Neuro Neuro: Alert and oriented X 3, No motor deficit, Normal speech Results - Vitals Vitals: Vital Signs - 24 hr 06/11/23 06/11/23 10:44 14:17 Temperature 36.4 C L 35.6 C L Heart Rate 92 88 Respiratory 18 16 Rate Blood Pressure 110/52 L 132/58 H O2 Saturation 100 100 Oxygen O2 Source Room air - EKG (time done) 12:17 EKG releavant findings:: EKG personally interpreted by author of this note. Relevant findings are: Rate: Rate (enter#) (83) Rhythm: NSR [place]: Normal Intervals: Normal VT QRS: Normal Ischemia: Normal ST segments. No: ST elevation c/w ischemia, ST depression - Labs Labs: Laboratory Tests 06/11/23 06/11/23 06/11/23 11:03 11:03 11:03 WBC RBC Hgb Hct MCV MCH MCHC RDW Neut # (Auto) Lymph # (Auto) [place] # (Auto) Eos # (Auto) Baso # (Auto) Absolute Nucleated RBC Nucleated RBC % Manual Slide Review WBC Morphology Platelet Estimate Platelet Morphology RBC Morph Micro Appear Sodium 127 L Potassium 3.7 Chloride 86 L Carbon Dioxide 24 Anion Gap 17.0 H BUN 121 H* Creatinine 3.3 H Estimated GFR (MDRD) 16 L Glucose 136 H Lactic Acid 2.3 H Calcium 9.0 Magnesium 1.4 L Total Bilirubin 0.8 AST 28 ALT 29 Alkaline Phosphatase 68 Total Protein 5.6 L Albumin 3.3 Globulin 2.3 Albumin/Globulin Ratio 1.4 Lipase 103 H TSH 0.40 Urine Color Urine Clarity Urine pH Ur Specific [place] Urine Protein Urine Glucose (UA) Urine Ketones Urine Occult Blood Urine Nitrite Urine Bilirubin Urine Urobilinogen Ur Leukocyte Esterase Urine RBC Urine WBC Ur Squamous Epith Cells Urine Bacteria Urine Yeast Ur Microscopic Review Urine Culture Comments Nasal Adenovirus (PCR) NOT DETECTED Nasal B. parapertussis DNA (PCR) NOT DETECTED Nasal Coronavir 229E PCR NOT DETECTED Nasal Coronavir HKU1 PCR NOT DETECTED Nasal Coronavir NL63 PCR NOT DETECTED Nasal Coronavir OC43 PCR NOT DETECTED Nasal Enterovir/Rhinovir PCR NOT DETECTED Nasal Influenza B PCR NOT DETECTED Nasal Influenza A PCR NOT DETECTED Nasal Parainfluen 1 PCR NOT DETECTED Nasal Parainfluen 2 PCR NOT DETECTED Nasal Parainfluen 3 PCR NOT DETECTED Nasal Parainfluen 4 PCR NOT DETECTED Nasal RSV (PCR) NOT DETECTED Nasal B.pertussis DNA PCR NOT DETECTED Nasal C.pneumoniae (PCR) NOT DETECTED Sesar Human Metapneumo PCR NOT DETECTED Nasal M.pneumoniae (PCR) NOT DETECTED Nasal SARS-CoV-2 (PCR) NOT DETECTED 06/11/23 06/11/23 12:15 13:59 WBC 18.9 H RBC 4.11 L Hgb 12.3 Hct 34.3 L MCV 83.5 MCH 29.9 MCHC 35.9 RDW 14.7 Neut # (Auto) 15.6 H Lymph # (Auto) 1.8 [place] # (Auto) 1.1 H Eos # (Auto) 0.0 Baso # (Auto) 0.0 Absolute Nucleated RBC 0.09 Nucleated RBC % 0.5 Manual Slide Review Indicated WBC Morphology NORMAL APPEARANCE Platelet Estimate Platelet Morphology PLATELET CLUMPING RBC Morph Micro Appear NORMAL APPEARANCE Sodium Potassium Chloride Carbon Dioxide Anion Gap BUN Creatinine Estimated GFR (MDRD) Glucose Lactic Acid Calcium Magnesium Total Bilirubin AST ALT Alkaline Phosphatase Total Protein Albumin Globulin Albumin/Globulin Ratio Lipase TSH Urine Color YELLOW Urine Clarity SL. CLOUDY Urine pH 6.0 Ur Specific [place] 1.010 Urine Protein NEGATIVE Urine Glucose (UA) NEGATIVE Urine Ketones NEGATIVE Urine Occult Blood TRACE-LYSE Urine Nitrite NEGATIVE Urine Bilirubin NEGATIVE Urine Urobilinogen 0.2 (NORMAL) Ur Leukocyte Esterase MODERATE H Urine RBC 6-10 H Urine WBC 6-10 H Ur Squamous Epith Cells MANY Squamous H Urine Bacteria Rare Urine Yeast PRESENT Ur Microscopic Review INDICATED Urine Culture Comments NOT INDICATED Nasal Adenovirus (PCR) Nasal B. parapertussis DNA (PCR) Nasal Coronavir 229E PCR Nasal Coronavir HKU1 PCR Nasal Coronavir NL63 PCR Nasal Coronavir OC43 PCR Nasal Enterovir/Rhinovir PCR Nasal Influenza B PCR Nasal Influenza A PCR Nasal Parainfluen 1 PCR Nasal Parainfluen 2 PCR Nasal Parainfluen 3 PCR Nasal Parainfluen 4 PCR Nasal RSV (PCR) Nasal B.pertussis DNA PCR Nasal C.pneumoniae (PCR) Sesar Human Metapneumo PCR Nasal M.pneumoniae (PCR) Nasal SARS-CoV-2 (PCR) - Rads (name of study) No standard instances Relevant Findings:: Prelim report reviewed (prominent interstitium with focal infiltrate. Consider atypical infection vs atelectasis or failure. ), EMP independent interpretation of test PD Medical Decision Making - ED course Complexity details: re-evaluated patient (The patient did have difficult IV access. Nurses were not able to get a peripheral IV. We did try ultrasound- guided peripheral with assistance from anesthesia on-call. They are unable to find. At this point did request anesthesia to place a central line as the patient will be admitted to the hos), considered differential, d/w patient, d/w family (supplemental information from pt spouse and daughter. ), d/w clothing consultant (Hospitalist Dr. Moe. ) ED course: The patient presents with flulike illness with general fatigue and myalgias nausea with decreased appetite. No diarrhea. No dysuria. She denies chest or belly pain per se. She had had similar symptoms about 2 weeks ago and was seen in the ER approximately 10 days ago. Testing at the time showed a possible UTI and was given antibiotics believe Ciefpodoxime. Her spouse states the patient seemed to better over the next week with somewhat increased intake and less fatigue and aches. However symptoms again the last 2 to 3 days. The urine culture from the visit 06/02/2023 did not have a positive growth but j ust mixed sandra so apparently not true UTI. There may be an some component of it since the patient did seem to improve with antibiotics versus just correlated. The patient now with the recurrent general symptoms. In particular on the most recent ER visit, flu testing or viral testing was not done and her symptoms may have represented a viral illness with now reapprising of her symptoms. Her vi ral panel test is negative today but does not preclude a recent viral illness. The urine today does not show signs of obvious infection. Chest x-ray is clear without any signs of infiltrates or pneumonia. The patient's blood count does show an elevated white count of 18,000. This is of course is nonspecific. Chemistry panel otherwise shows a notable elevation of her creatinine today at 3.3 with the previous one 1.4. Sodium is slightly lower at 127 compared to 129 on the last visit. Magnesium is slightly low at 1.4. Blood sugar on this visit is only moderately elevated at 371 and had been more highly elevated on the previous visit (400s). The patient's bicarbonate is normal. I did not do a specific blood gas. The patient is having less or oral intake with a notable acute on chronic renal insufficiency/injury. Her electrolytes are off. Unclear the cause of her symptoms at this point. I talked with the hospitalist who will come to the ER and see the patient in resume place in the hospital. Departure - Departure Disposition: 66 [facility] DC/Xfer Clinical Impression: Hyponatremia, Acute on chronic renal insufficiency, Generalized muscle ache, Generalized weakness, Leukocytosis, Diabetes, Hypomagnesemia, Flu-like symptoms Condition: Stable Record reviewed to determine appropriate education?: Yes Forms: PCP List
[2023-06-11 11:39] LABS: THYROID STIMULATING HORMONE 0.4 uIU/mL (0.34-5.60)
[2023-06-11 11:54] LABS: ALBUMIN 3.3 g/dL (3.2-5.5); ALBUMIN/GLOBULIN RATIO 1.4 (1.0-2.2); BILIRUBIN,TOTAL 0.8 mg/dL (0.2-1.0); CREATININE 3.3 mg/dL (0.6-1.3); MAGNESIUM 1.4 mg/dL (1.7-2.3); POTASSIUM 3.7 mmol/L (3.5-4.5); TOTAL PROTEIN 5.6 g/dL (6.4-8.9)
[2023-06-11 12:02] LABS: B. PARAPERTUSSIS- RESP PCR PAN NOT DETECTED; B. PERTUSSIS- RESP PCR PANEL NOT DETECTED; C. PNEUMONIAE- RESP PCR PANEL NOT DETECTED; CORONAVIRUS 229E-RESP PCR NOT DETECTED; CORONAVIRUS HKU1-RESP PCR NOT DETECTED; CORONAVIRUS NL63-RESP PCR NOT DETECTED; CORONAVIRUS OC43-RESP PCR NOT DETECTED; HUMAN METAPNEUMOVIRUS NOT DETECTED; INFLUENZA A- RESP PCR PANEL NOT DETECTED; INFLUENZA B - RESP PCR PANEL NOT DETECTED; M. PNEUMONIAE- RESP PCR PANEL NOT DETECTED; PARAINFLUENZA VIRUS 1 NOT DETECTED; PARAINFLUENZA VIRUS 2 NOT DETECTED; PARAINFLUENZA VIRUS 3 NOT DETECTED; PARAINFLUENZA VIRUS 4 NOT DETECTED; RHINOVIRUS/ENTEROVIRUS NOT DETECTED; RSV- RESP PCR PANEL NOT DETECTED; SARS-CoV-2 -RESP PCR PANEL NOT DETECTED
--- NOTE | 2023-06-11 12:04 | XRAY Report ---
PROCEDURE: Chest 1V INDICATIONS: chest pain TECHNIQUE: One view of the chest was acquired. COMPARISON: None. FINDINGS: Surgical changes and devices: None. Lungs and pleura: Low lung volumes. Mildly prominent interstitium. Mediastinum: Normal heart size Bones and chest wall: Degenerative changes IMPRESSION: Limited single view radiograph with low lung volumes. Mildly prominent interstitium could represent a typical infection or edema. Consider future imaging surveillance to assess for resolution. No dense consolidation or pleural effusion. Reviewed by: Chao Shannon MD on 06/11/2023 12:02 PM PST Approved by: Chao Shannon MD on 06/11/2023 12:02 PM PST Station ID: [id number]
[2023-06-11 12:43] LABS: BASOPHILS % (AUTO) 0.2 %; EOSINOPHILS % (AUTO) 0.1 %; HCT - HEMATOCRIT 34.3 % (37.0-47.0); HGB - HEMOGLOBIN 12.3 g/dL (12.0-16.0); LYMPHOCYTES # (AUTO) 1.8 10^3/uL (1.5-3.5); LYMPHOCYTES % (AUTO) 9.7 %; MEAN CORPUSCULAR HEMOGLOBIN 29.9 pg (27.0-31.0); MEAN CORPUSCULAR HGB CONC 35.9 g/dL (32.0-36.0); MEAN CORPUSCULAR VOLUME 83.5 fL (81.0-99.0); MONOCYTES # (AUTO) 1.1 10^3/uL (0.0-1.0); MONOCYTES % (AUTO) 5.8 %; NEUTROPHILS # (AUTO) 15.6 10^3/uL (1.5-6.6); NEUTROPHILS % (AUTO) 82.1 %; NRBC ABSOLUTE COUNT (AUTO) 0.09 x10^3/uL; NUCLEATED RED BLOOD CELLS AUTO 0.5 /100WBC; RED BLOOD COUNT 4.11 10^6/uL (4.20-5.40); RED CELL DISTRIBUTION WIDTH 14.7 % (12.0-15.0); WHITE BLOOD COUNT 18.9 x10^3/uL (4.8-10.8)
[2023-06-11 12:57] LABS: PLATELET MORPHOLOGY PLATELET CLUMPING (NORMAL)
[2023-06-11 12:59] LABS: RBC MORPHOLOGY (MULTIPLE) NORMAL APPEARANCE (NORMAL); SLIDE REVIEW? Indicated; WBC MORPHOLOGY (MULTIPLE) NORMAL APPEARANCE (NORMAL)
[2023-06-11 14:28] LABS: BILIRUBIN,URINE NEGATIVE (NEGATIVE); GLUCOSE, URINE (UA) NEGATIVE (NEGATIVE); KETONES,URINE (UA) NEGATIVE (NEGATIVE); LEUKOCYTE ESTERASE, URINE MODERATE (NEGATIVE); NITRITE,URINE NEGATIVE (NEGATIVE); OCCULT BLOOD,URINE TRACE-LYSE (NEGATIVE); PROTEIN,URINE NEGATIVE (NEGATIVE); UROBILINOGEN,URINE 0.2 (NORMAL) E.U./dL (NORMAL)
[2023-06-11 14:34] LABS: CLARITY,URINE SL. CLOUDY (CLEAR)
[2023-06-11 14:41] LABS: BACTERIA,URINE Rare /HPF (None Seen); SQUAMOUS EPITHELIAL CELL,UR MANY Squamous (<= Few)
[2023-06-11 14:42] LABS: YEAST,URINE PRESENT
--- NOTE | 2023-06-11 15:37 | HISTORY & PHYSICAL EXAMINATION ---
Chief Complaint - Chief Complaint Chief Complaint: Altered Mental Status and weakness History of Present Illness - Admitted From Admitted From:: Emergency Room - History Obtained From Records Reviewed: Yes History obtained from: Family, patient and emergency room physician, Alex Pereira MD - History of Present Illness HPI Comment/Other: Deidra Marrufo is a 77-year-old woman who presented to the emergency room with complaints of weakness and altered mental status. Patient has been complaining of increased weakness for approximately 2 weeks. She was seen in the emergency room on June 01, 2023 and given IV fluids. Urinalysis was concerning for possible urinary tract infection and she was discharged from the emergency room on antibiotics. Other symptoms include increased shortness of breath and nausea. In the emergency room, a viral panel was performed that was negative.Urinalysis was also negative and chest x-ray demonstrates cephalization of vessels with no obvious opacification/focus of infection. Her significant other reports less oral intake over the last several weeks. History - Past Medical History Cardiovascular: reports: Hypertension, High cholesterol, Coronary artery disease Respiratory: reports: None Neuro: reports: None, Headaches Endocrine/Autoimmune: reports: None GI: reports: None [employer]: reports: None : reports: None HEENT: reports: Chronic vision loss Psych: reports: None Musculoskeletal: reports: Rheumatoid arthritis Derm: reports: None - Past Surgical History Ortho: reports: Spine surgery /[employer]: reports: section HEENT: reports: Cataracts Meds/Allgy - Home Medications Home Medications: Ambulatory Orders Medication Instructions Recorded Confirmed Atorvastatin [Lipitor] 20 mg PO HS 12/01/22 06/11/23 Estrogens, Conjugated Cream 1 gm VG QPM 12/01/22 06/11/23 [Premarin Cream] Lidocaine Patch 5% [Lidoderm Patch] 1 each TOP DAILY 12/01/22 06/11/23 Losartan Potassium 25 mg PO DAILY 12/01/22 06/11/23 Metoprolol Tartrate [Lopressor] 25 mg PO DAILY 12/01/22 06/11/23 Naloxone HCl [Narcan] 4 mg NS ONCE PRN 12/01/22 06/11/23 Timolol 0.5% Ophth Drops [Timoptic 1 drops OPTH BID 12/01/22 06/11/23 0.5% Ophth Drops] dexAMETHasone [Decadron] 4 mg PO DAILY #5 tablet 12/10/22 06/11/23 Morphine ER [Ms Contin] 15 mg PO Q12H PRN #6 tablet 12/14/22 06/11/23 Amitriptyline [Elavil] 10 mg PO HS 06/11/23 06/11/23 Docusate Sodium [Dulcolax Stool 100 mg PO DAILY 06/11/23 06/11/23 Softener] Furosemide [Lasix] 40 mg PO DAILY 06/11/23 06/11/23 hydroCHLOROthiazide [Hydrodiuril] 25 mg PO DAILY 06/11/23 06/11/23 metFORMIN [Glucophage] 500 mg PO ONCE 06/11/23 06/11/23 - Allergies Allergies/Adverse Reactions: Allergies Allergy/AdvReac Type Severity Reaction Status Date / Time codeine AdvReac Unknown Verified 06/01/23 20:42 lisinopril AdvReac Unknown Verified 06/01/23 20:42 methocarbamol [From Robaxin] AdvReac Unknown Verified 06/01/23 20:42 nicotine [From Nicoderm CQ] AdvReac Unknown Verified 06/11/23 10:51 Review of Systems - Constitutional Constitutional: reports: Fatigue, Weakness Exam - Vital Signs Vital Signs: Vital Signs x48h Temp Pulse Resp BP Pulse Ox 06/11/23 14:17 35.6 C L 88 16 132/58 H 100 06/11/23 10:44 36.4 C L 92 18 110/52 L 100 - Physical Exam General Appearance: positive: No acute distress, Mild distress Eyes Bilateral: positive: EOMI, No lid inflammation, Conjunctivae nml ENT: positive: Pharynx nml Neck: positive: Thyroid nml, No JVD, Trachea midline Respiratory: positive: Chest non-tender, Other (Fair air exchange in all lung hauser no wheezing no crackles.) Cardiovascular: positive: Other (Positive S1-S2 no extra heart sounds) Abdomen: positive: Non-tender, No organomegaly, Nml bowel sounds, No distention Conclusion/Plan - Problem List (1) Acute on chronic renal insufficiency Conclusion/Plan: Patient creatinine on June 01, 2023 was 1.4. Today her serum creatinine is 3.3. Patient has acute on chronic renal failure. She reports a decreased intake over the last several weeks. Plan: Initiate IV fluids with normal saline at 100 mL/h. Continue to monitor serum BUNs/creatinine. (2) Hyponatremia Patient has moderate hyponatremia. Plan: Normal saline at 100 mL an hour Continue to monitor serum sodium. (3) Hypomagnesia Plan: Continue to monitor and replace as needed. (4) Altered mental status Plan: Patient has some mild altered mental status at this time. Continue to monitor.Mental status changes are most likely multifactorial and secondary to hyponatremia and significant uremia with a BUN of 121. (5) Abnormal Lung Field Plan: Chest x-ray reveals cephalization of vessels and patient has significant lower extremity edema. I am concerned that she may have heart failure and plan is for her to undergo an echocardiogram to evaluate LV and RV function and to evaluate for valvular heart disease. - Lab Results Fish Bones: 06/11/23 12:15 06/11/23 11:03
--- NOTE | 2023-06-11 16:28 | ANESTHESIA PROCEDURE NOTE ---
Anesth Central Line Template - Central Line Central Line Preparation: Consent Obtained Central line location: Right IJ Central line type: Triple lumen Central line catheter tip site resides: Superior vena cava (SVC) Central line aftercare: Chlorhexidine disc placed, Secured, Placement confirmed, No pneumothorax, No complications, Pt tolerated well
--- NOTE | 2023-06-11 17:01 | XRAY Report ---
PROCEDURE: Chest for Line Placement INDICATIONS: check for central line placement TECHNIQUE: One view of the chest was acquired. COMPARISON: Chest x-ray earlier in the day FINDINGS: Surgical changes and devices: A right-sided central line can be seen, with the tip overlying the inf erior aspect of the superior vena cava, near the cavoatrial junction. Cervical spine fixation hardwar e is partially seen. Lungs and pleura: No pleural effusions or pneumothorax. Mild generalized interstitial prominence can be seen. Mediastinum: The aorta is prominent and tortuous. The cardiac contours are within normal limits. Bones and chest wall: No suspicious bony lesions. Age-appropriate degenerative changes are seen. O verlying soft tissues appear unremarkable. IMPRESSION: The tip of the right-sided central line can be seen overlying the inferior aspect of the superior sixto a cava. Mild generalized prominence can be seen. Please consider pulmonary edema. Differential diagnosis incl udes atypical infection. Reviewed by: Timothy Howe MD on 06/11/2023 4:00 PM [facility] Approved by: Timothy Howe MD on 06/11/2023 4:00 PM [facility] Station ID: [id number]
[2023-06-11] MEDS: SODIUM CHLORIDE 0.9% 1,000 ML IV SCH (18:49)
[2023-06-11] MEDS: SODIUM CHLORIDE FLUSH 0.9% 10 ML SYRINGE IVP SCH (18:49)
[2023-06-11] MEDS: MAGNESIUM OXIDE 400 MG TABLET PO SCH (19:05)
[2023-06-11] MEDS: SODIUM CHLORIDE 0.9% 1,000 ML IV STA (23:15)
[2023-06-11] MEDS: HEPARIN 5,000 UNIT/ML VIAL SUBQ SCH (23:24)
[2023-06-12] MEDS: ZINC OXIDE 20% OINT 30 GM TUBE TOP PRN (04:54)
[2023-06-12 06:06] LABS: BASOPHILS % (AUTO) 0.2 %; EOSINOPHILS % (AUTO) 0.2 %; HCT - HEMATOCRIT 33.7 % (37.0-47.0); HGB - HEMOGLOBIN 11.4 g/dL (12.0-16.0); LYMPHOCYTES # (AUTO) 1.7 10^3/uL (1.5-3.5); LYMPHOCYTES % (AUTO) 13.5 %; MEAN CORPUSCULAR HEMOGLOBIN 28.9 pg (27.0-31.0); MEAN CORPUSCULAR HGB CONC 33.8 g/dL (32.0-36.0); MEAN CORPUSCULAR VOLUME 85.5 fL (81.0-99.0); MEAN PLATELET VOLUME 10.9 fL (7.9-10.8); MONOCYTES # (AUTO) 0.7 10^3/uL (0.0-1.0); MONOCYTES % (AUTO) 5.7 %; NEUTROPHILS % (AUTO) 78.7 %; NRBC ABSOLUTE COUNT (AUTO) 0.07 x10^3/uL; NUCLEATED RED BLOOD CELLS AUTO 0.6 /100WBC; PLT - PLATELET COUNT 153 10^3/uL (130-450); RED BLOOD COUNT 3.94 10^6/uL (4.20-5.40); RED CELL DISTRIBUTION WIDTH 14.9 % (12.0-15.0); WHITE BLOOD COUNT 12.7 x10^3/uL (4.8-10.8)
[2023-06-12 06:47] LABS: CALCIUM 8.9 mg/dL (8.5-10.3); CREATININE 2.1 mg/dL (0.6-1.3); MAGNESIUM 1.5 mg/dL (1.7-2.3); POTASSIUM 2.9 mmol/L (3.5-4.5)
[2023-06-12] MEDS: SODIUM CHLORIDE FLUSH 0.9% 10 ML SYRINGE IVP PRN (08:28)
--- NOTE | 2023-06-12 09:02 | PHARMACY PROGRESS NOTE ---
- Best Possible Medication History Admit Date and Time: 06/11/23 1521 Processed by: Nursing As the person ultimately responsible for medication therapy, providers are able to order a medication from an existing home medication list in [facility] via the "Reconcile Routine" prior to Confirmation of that medication by office support clerk. Such practice is discouraged except when the physician, in their clinical judgment, deems that a medical need exists for a medication without regard to previous use.
[2023-06-12] MEDS: POTASSIUM CHLORIDE 20 MEQ/15 ML UDC PO ONE (11:27)
[2023-06-12] MEDS: NS W/40 MEQ KCL 1,000 ML IV SCH (11:27)
--- NOTE | 2023-06-12 23:13 | PROVIDER PROGRESS NOTE ---
Assessment/Plan - Problem List (1) Acute on chronic renal insufficiency Assessment/Plan: Patient creatinine on June 01, 2023 was 1.4. Today her serum creatinine is 3.3. Patient has acute on chronic renal failure. She reports a decreased intake over the last several weeks. Creatinine and uremia have significantly improved since admission. And are currently BUNs/creatinine 104/2.1 Plan: Continue IV fluids with normal saline at 100 mL/h. Continue to monitor serum BUNs/creatinine. (2) Hyponatremia Patient has moderate hyponatremia. Plan: Normal saline at 100 mL an hour Continue to monitor serum sodium. (3) Hypomagnesia Plan: Continue to monitor and replace as needed. (4) Altered mental status Plan: Patient has some mild altered mental status at this time. Continue to monitor.Mental status changes are most likely multifactorial and secondary to hyponatremia and significant uremia with a BUN of 121. (5) Abnormal Lung Field Plan: Chest x-ray reveals cephalization of vessels and patient has significant lower extremity edema. I am concerned that she may have heart failure and plan is for her to undergo an echocardiogram to evaluate LV and RV function and to evaluate for valvular heart disease. (6) Urinary tract infection Plan: One dose of fosfomycin - Current Meds Current Meds: Current Medications Generic Name Dose Route Start Last Admin Trade Name Freq PRN Reason Stop Dose Admin Heparin Sodium (Porcine) 5,000 unit 06/11/23 21:00 06/12/23 20:07 Heparin 5,000 Unit/Ml Vial SUBQ 5,000 unit BID SEN Administration Magnesium Oxide 400 mg 06/11/23 16:00 06/12/23 08:23 Magnesium Oxide 400 Mg Tablet PO 400 mg DAILYWM SEN Administration Multi-Ingredient Ointment 1 applic 06/12/23 00:37 06/12/23 14:43 Zinc Oxide 20% Oint 30 Gm Tube TOP 1 applic PRN PRN Administration Skin Care Sodium Chloride 10 ml 06/11/23 15:21 06/12/23 08:28 Sodium Chloride Flush 0.9% 10 Ml Syringe IVP 10 ml PRN PRN Administration NEEDED PER PROVIDER ORDERS Sodium Chloride 10 ml 06/11/23 17:00 06/12/23 20:08 Sodium Chloride Flush 0.9% 10 Ml Syringe IVP 10 ml 0100,0900,1700 [facility] Administration - Lab Result Fish Bone Diagrams: 06/12/23 04:59 06/13/23 05:20 - Additional Planning My Orders: My Active Orders 06/12/23 00:37 Zinc Oxide 20% Oint [Zinc Oxide] 1 applic TOP PRN PRN 06/12/23 Dinner DIET [Carb-controlled Diet] [DIET] 06/13/23 05:00 BMP - BASIC METABOLIC PANEL [CHEM] DAILYLAB MG [MAGNESIUM] [CHEM] Routine 06/13/23 09:00 Fosfomycin Tromethamine [MonuroL] 3 gm PO ONCE ONE Subjective - Subjective Patient Reports: Other (Alert. Denies chest pain, shortness of breath, abdominal pain. No other complaints at this time.) Objective Vital Signs: Vital Signs - 24 hr 06/12/23 06/12/23 06/12/23 00:00 08:10 16:01 Temperature 36.3 C L 36.1 C L 36.1 C L Heart Rate [ 99 107 H Brachial] Heart Rate [ 90 Monitoring electrodes] Respiratory 16 16 16 Rate Blood Pressure 143/64 H 137/71 H 118/71 [Right Brachial artery] O2 Saturation 100 99 99 Oxygen O2 Source Room air I&O (Last 24 Hrs): Intake and Output Totals x24h 06/10/23 06/11/23 06/12/23 23:59 23:59 23:59 Intake Total 3213.333 Output Total 0 2150 Balance 0 1063.333 General: Alert, Oriented x3, No acute distress Neck: Supple, No JVD, No thyromegaly Neuro: Alert, Non Focal Cardiovascular: Regular rate, Normal S1, Normal S2, No murmurs Respiratory: Other (Good air exchange in all lung hauser no wheezing no crackles) Extremities: No cyanosis, No edema Skin: No rashes - Results Results: Laboratory Results WBC 12.7 x10^3/uL (4.8-10.8) H 06/12/23 04:59 RBC 3.94 10^6/uL (4.20-5.40) L 06/12/23 04:59 Hgb 11.4 g/dL (12.0-16.0) L 06/12/23 04:59 Hct 33.7 % (37.0-47.0) L 06/12/23 04:59 MCV 85.5 fL (81.0-99.0) 06/12/23 04:59 MCH 28.9 pg (27.0-31.0) 06/12/23 04:59 MCHC 33.8 g/dL (32.0-36.0) 06/12/23 04:59 RDW 14.9 % (12.0-15.0) 06/12/23 04:59 Plt Count 153 10^3/uL (130-450) 06/12/23 04:59 MPV 10.9 fL (7.9-10.8) H 06/12/23 04:59 Neut # (Auto) 10.0 10^3/uL (1.5-6.6) H 06/12/23 04:59 Lymph # (Auto) 1.7 10^3/uL (1.5-3.5) 06/12/23 04:59 Boyd # (Auto) 0.7 10^3/uL (0.0-1.0) 06/12/23 04:59 Eos # (Auto) 0.0 10^3/uL (0.0-0.7) 06/12/23 04:59 Baso # (Auto) 0.0 10^3/uL (0.0-0.1) 06/12/23 04:59 Absolute Nucleated RBC 0.07 x10^3/uL 06/12/23 04:59 Nucleated RBC % 0.6 /100WBC 06/12/23 04:59 Manual Slide Review Indicated 06/11/23 12:15 WBC Morphology NORMAL APPEARANCE (NORMAL) 06/11/23 12:15 Platelet Estimate (NORMAL) 06/11/23 12:15 Platelet Morphology PLATELET CLUMPING (NORMAL) 06/11/23 12:15 RBC Morph Micro Appear NORMAL APPEARANCE (NORMAL) 06/11/23 12:15 Sodium 133 mmol/L (135-145) L 06/12/23 04:59 Potassium 2.9 mmol/L (3.5-4.5) L 06/12/23 04:59 Chloride 94 mmol/L (101-111) L 06/12/23 04:59 Carbon Dioxide 27 mmol/L (21-32) 06/12/23 04:59 Anion Gap 12.0 (6-13) 06/12/23 04:59 BUN 104 mg/dL (6-20) H* 06/12/23 04:59 Creatinine 2.1 mg/dL (0.6-1.3) H 06/12/23 04:59 Estimated GFR (MDRD) 28 (>89) L 06/12/23 04:59 Glucose 98 mg/dL (74-104) 06/12/23 04:59 Lactic Acid 2.3 mmol/L (0.5-2.2) H 06/11/23 11:03 Calcium 8.9 mg/dL (8.5-10.3) 06/12/23 04:59 Magnesium 1.5 mg/dL (1.7-2.3) L 06/12/23 04:59 Total Bilirubin 0.8 mg/dL (0.2-1.0) 06/11/23 11:03 AST 28 IU/L (10-42) 06/11/23 11:03 ALT 29 IU/L (10-60) 06/11/23 11:03 Alkaline Phosphatase 68 IU/L (42-121) 06/11/23 11:03 Troponin I High Sens 107.4 ng/L (2.3-14.8) H* 06/12/23 00:00 Total Protein 5.6 g/dL (6.4-8.9) L 06/11/23 11:03 Albumin 3.3 g/dL (3.2-5.5) 06/11/23 11:03 Globulin 2.3 g/dL (2.1-4.2) 06/11/23 11:03 Albumin/Globulin Ratio 1.4 (1.0-2.2) 06/11/23 11:03 Lipase 103 U/L (11-82) H 06/11/23 11:03 TSH 0.40 uIU/mL (0.34-5.60) 06/11/23 11:03 Urine Color YELLOW 06/11/23 13:59 Urine Clarity SL. CLOUDY (CLEAR) 06/11/23 13:59 Urine pH 6.0 PH (5.0-7.5) 06/11/23 13:59 Ur Specific [place] 1.010 (1.002-1.030) 06/11/23 13:59 Urine Protein NEGATIVE mg/dL (NEGATIVE) 06/11/23 13:59 Urine Glucose (UA) NEGATIVE mg/dL (NEGATIVE) 06/11/23 13:59 Urine Ketones NEGATIVE mg/dL (NEGATIVE) 06/11/23 13:59 Urine Occult Blood TRACE-LYSE (NEGATIVE) 06/11/23 13:59 Urine Nitrite NEGATIVE (NEGATIVE) 06/11/23 13:59 Urine Bilirubin NEGATIVE (NEGATIVE) 06/11/23 13:59 Urine Urobilinogen 0.2 (NORMAL) E.U./dL (NORMAL) 06/11/23 13:59 Ur Leukocyte Esterase MODERATE (NEGATIVE) H 06/11/23 13:59 Urine RBC 6-10 /HPF (0-5) H 06/11/23 13:59 Urine WBC 6-10 /HPF (0-5) H 06/11/23 13:59 Ur Squamous Epith Cells MANY Squamous (<= Few) H 06/11/23 13:59 Urine Bacteria Rare /HPF (None Seen) 06/11/23 13:59 Urine Yeast PRESENT 06/11/23 13:59 Ur Microscopic Review INDICATED 06/11/23 13:59 Urine Culture Comments NOT INDICATED 06/11/23 13:59 Nasal Adenovirus (PCR) NOT DETECTED 06/11/23 11:03 Nasal B. parapertussis DNA (PCR) NOT DETECTED 06/11/23 11:03 Nasal Coronavir 229E PCR NOT DETECTED 06/11/23 11:03 Nasal Coronavir HKU1 PCR NOT DETECTED 06/11/23 11:03 Nasal Coronavir NL63 PCR NOT DETECTED 06/11/23 11:03 Nasal Coronavir OC43 PCR NOT DETECTED 06/11/23 11:03 Nasal Enterovir/Rhinovir PCR NOT DETECTED 06/11/23 11:03 Nasal Influenza B PCR NOT DETECTED 06/11/23 11:03 Nasal Influenza A PCR NOT DETECTED 06/11/23 11:03 Nasal Parainfluen 1 PCR NOT DETECTED 06/11/23 11:03 Nasal Parainfluen 2 PCR NOT DETECTED 06/11/23 11:03 Nasal Parainfluen 3 PCR NOT DETECTED 06/11/23 11:03 Nasal Parainfluen 4 PCR NOT DETECTED 06/11/23 11:03 Nasal RSV (PCR) NOT DETECTED 06/11/23 11:03 Nasal B.pertussis DNA PCR NOT DETECTED 06/11/23 11:03 Nasal C.pneumoniae (PCR) NOT DETECTED 06/11/23 11:03 Sesar Human Metapneumo PCR NOT DETECTED 06/11/23 11:03 Nasal M.pneumoniae (PCR) NOT DETECTED 06/11/23 11:03 Nasal SARS-CoV-2 (PCR) NOT DETECTED 06/11/23 11:03 Current Medications - Current Medications Current Medications: Active Medications Fosfomycin Tromethamine (Fosfomycin Tromethamine 3 Gm Packet) 3 gm PO ONCE ONE Stop: 06/13/23 09:01 Heparin Sodium (Porcine) (Heparin 5,000 Unit/Ml Vial) 5,000 unit SUBQ BID [facility] Last Admin: 06/12/23 20:07 Dose: 5,000 unit Magnesium Oxide (Magnesium Oxide 400 Mg Tablet) 400 mg PO DAILYWM [facility] Last Admin: 06/12/23 08:23 Dose: 400 mg Multi-Ingredient Ointment (Zinc Oxide 20% Oint 30 Gm Tube) 1 applic TOP PRN PRN PRN Reason: Skin Care Last Admin: 06/12/23 14:43 Dose: 1 applic Sodium Chloride (Sodium Chloride Flush 0.9% 10 Ml Syringe) 10 ml IVP PRN PRN PRN Reason: NEEDED PER PROVIDER ORDERS Last Admin: 06/12/23 08:28 Dose: 10 ml Sodium Chloride (Sodium Chloride Flush 0.9% 10 Ml Syringe) 10 ml IVP 0100,0900,1700 [facility] Last Admin: 06/12/23 20:08 Dose: 10 ml Atorvastatin [Lipitor] 20 mg PO HS 12/01/22 Estrogens, Conjugated Cream [Premarin Cream] 1 gm VG QPM 12/01/22 Lidocaine Patch 5% [Lidoderm Patch] 1 each TOP DAILY 12/01/22 Losartan Potassium 25 mg PO DAILY 12/01/22 Metoprolol Tartrate [Lopressor] 25 mg PO DAILY 12/01/22 Naloxone HCl [Narcan] 4 mg NS ONCE PRN 12/01/22 Timolol 0.5% Ophth Drops [Timoptic 0.5% Ophth Drops] 1 drops OPTH BID 12/01/22 Amitriptyline [Elavil] 10 mg PO HS 06/11/23 Docusate Sodium [Dulcolax Stool Softener] 100 mg PO DAILY 06/11/23 Furosemide [Lasix] 40 mg PO DAILY 06/11/23 hydroCHLOROthiazide [Hydrodiuril] 25 mg PO DAILY 06/11/23 metFORMIN [Glucophage] 500 mg PO ONCE 06/11/23
[2023-06-13 06:39] LABS: CALCIUM 9.2 mg/dL (8.5-10.3); CREATININE 1.2 mg/dL (0.6-1.3); MAGNESIUM 1.5 mg/dL (1.7-2.3); POTASSIUM 4.3 mmol/L (3.5-4.5)
[2023-06-13] MEDS: FOSFOMYCIN TROMETHAMINE 3 GM PACKET PO ONE (08:40)
[2023-06-13] MEDS: polyethylene glycoL 3350 17 GM PACKET PO SCH (08:41)
--- NOTE | 2023-06-13 13:26 | PROVIDER PROGRESS NOTE ---
Assessment/Plan - Problem List (1) Acute on chronic renal insufficiency Assessment/Plan: Patient creatinine on June 01, 2023 was 1.4. Today her serum creatinine is 3.3. Patient has acute on chronic renal failure. She reports a decreased intake over the last several weeks. Creatinine and uremia have significantly improved since admission. And are currently BUNs/creatinine 104/2.1 Plan: IVF discontinued Continue to monitor serum BUNs/creatinine. (2) Hyponatremia Patient has moderate hyponatremia. Hyponatremia has resolvd. Plan: Continue to monitor serum sodium. (3) Hypomagnesia Plan: Continue to monitor and replace as needed. (4) Altered mental status Plan: Patient has some mild altered mental status at this time. Continue to monitor.Mental status changes are most likely multifactorial and secondary to hyponatremia and significant uremia with a BUN of 121. (5) Abnormal Lung Field Plan: Chest x-ray reveals cephalization of vessels and patient has significant lower extremity edema. I am concerned that she may have heart failure and plan is for her to undergo an echocardiogram to evaluate LV and RV function and to evaluate for valvular heart disease. (6) Urinary tract infection Plan: One dose of fosfomycin - Current Meds Current Meds: Current Medications Generic Name Dose Route Start Last Admin Trade Name Freq PRN Reason Stop Dose Admin Heparin Sodium (Porcine) 5,000 unit 06/11/23 21:00 06/13/23 08:41 Heparin 5,000 Unit/Ml Vial SUBQ 5,000 unit BID SEN Administration Magnesium Oxide 400 mg 06/11/23 16:00 06/13/23 08:41 Magnesium Oxide 400 Mg Tablet PO 400 mg DAILYWM SEN Administration Multi-Ingredient Ointment 1 applic 06/12/23 00:37 06/12/23 14:43 Zinc Oxide 20% Oint 30 Gm Tube TOP 1 applic PRN PRN Administration Skin Care Polyethylene Glycol 17 gm 06/13/23 09:00 06/13/23 08:41 Polyethylene Glycol 3350 17 Gm Packet PO 17 gm DAILY SEN Administration Sodium Chloride 10 ml 06/11/23 15:21 06/12/23 08:28 Sodium Chloride Flush 0.9% 10 Ml Syringe IVP 10 ml PRN PRN Administration NEEDED PER PROVIDER ORDERS Sodium Chloride 10 ml 06/11/23 17:00 06/13/23 08:42 Sodium Chloride Flush 0.9% 10 Ml Syringe IVP 10 ml 0100,0900,1700 [facility] Administration - Lab Result Fish Bone Diagrams: 06/12/23 04:59 06/13/23 05:20 - Additional Planning My Orders: My Active Orders 06/12/23 Dinner DIET [Carb-controlled Diet] [DIET] 06/13/23 09:00 polyethylene glycoL 3350 [Miralax] 17 gm PO DAILY Subjective - Subjective Patient Reports: Other (Alert. Reports she does not have much of an appetite. Denies chest pain shortness of breath and abdominal pain at this time.) Objective Vital Signs: Vital Signs - 24 hr 06/12/23 06/13/23 06/13/23 16:01 00:00 08:00 Temperature 36.1 C L 36.4 C L 36.7 C Heart Rate [ 107 H 118 H 133 H Brachial] Respiratory 16 16 18 Rate Blood Pressure 118/71 149/70 H 143/70 H [Right Brachial artery] O2 Saturation 99 98 100 Oxygen O2 Source Room air I&O (Last 24 Hrs): Intake and Output Totals x24h 06/11/23 06/12/23 06/13/23 23:59 23:59 23:59 Intake Total 3213.333 Output Total 0 2150 450 Balance 0 1063.333 -450 General: Oriented x3, No acute distress, Other (mildly somnolent) HEENT: Atraumatic Neck: Supple, No JVD, No thyromegaly Neuro: Alert, Non Focal Cardiovascular: Regular rate, Normal S1, Normal S2, No murmurs Respiratory: Other (Fair air exchange in all lung hauser no wheezing no crackles.) Abdomen: Normal bowel sounds, Soft, No tenderness Extremities: No cyanosis, No edema Skin: No rashes - Results Results: Laboratory Results WBC 12.7 x10^3/uL (4.8-10.8) H 06/12/23 04:59 RBC 3.94 10^6/uL (4.20-5.40) L 06/12/23 04:59 Hgb 11.4 g/dL (12.0-16.0) L 06/12/23 04:59 Hct 33.7 % (37.0-47.0) L 06/12/23 04:59 MCV 85.5 fL (81.0-99.0) 06/12/23 04:59 MCH 28.9 pg (27.0-31.0) 06/12/23 04:59 MCHC 33.8 g/dL (32.0-36.0) 06/12/23 04:59 RDW 14.9 % (12.0-15.0) 06/12/23 04:59 Plt Count 153 10^3/uL (130-450) 06/12/23 04:59 MPV 10.9 fL (7.9-10.8) H 06/12/23 04:59 Neut # (Auto) 10.0 10^3/uL (1.5-6.6) H 06/12/23 04:59 Lymph # (Auto) 1.7 10^3/uL (1.5-3.5) 06/12/23 04:59 Millard # (Auto) 0.7 10^3/uL (0.0-1.0) 06/12/23 04:59 Eos # (Auto) 0.0 10^3/uL (0.0-0.7) 06/12/23 04:59 Baso # (Auto) 0.0 10^3/uL (0.0-0.1) 06/12/23 04:59 Absolute Nucleated RBC 0.07 x10^3/uL 06/12/23 04:59 Nucleated RBC % 0.6 /100WBC 06/12/23 04:59 Manual Slide Review Indicated 06/11/23 12:15 WBC Morphology NORMAL APPEARANCE (NORMAL) 06/11/23 12:15 Platelet Estimate (NORMAL) 06/11/23 12:15 Platelet Morphology PLATELET CLUMPING (NORMAL) 06/11/23 12:15 RBC Morph Micro Appear NORMAL APPEARANCE (NORMAL) 06/11/23 12:15 Sodium 138 mmol/L (135-145) 06/13/23 05:20 Potassium 4.3 mmol/L (3.5-4.5) 06/13/23 05:20 Chloride 103 mmol/L (101-111) 06/13/23 05:20 Carbon Dioxide 24 mmol/L (21-32) 06/13/23 05:20 Anion Gap 11.0 (6-13) 06/13/23 05:20 BUN 65 mg/dL (6-20) H 06/13/23 05:20 Creatinine 1.2 mg/dL (0.6-1.3) 06/13/23 05:20 Estimated GFR (MDRD) 53 (>89) L 06/13/23 05:20 Glucose 225 mg/dL (74-104) H 06/13/23 05:20 Lactic Acid 2.3 mmol/L (0.5-2.2) H 06/11/23 11:03 Calcium 9.2 mg/dL (8.5-10.3) 06/13/23 05:20 Magnesium 1.5 mg/dL (1.7-2.3) L 06/13/23 05:20 Total Bilirubin 0.8 mg/dL (0.2-1.0) 06/11/23 11:03 AST 28 IU/L (10-42) 06/11/23 11:03 ALT 29 IU/L (10-60) 06/11/23 11:03 Alkaline Phosphatase 68 IU/L (42-121) 06/11/23 11:03 Troponin I High Sens 107.4 ng/L (2.3-14.8) H* 06/12/23 00:00 Total Protein 5.6 g/dL (6.4-8.9) L 06/11/23 11:03 Albumin 3.3 g/dL (3.2-5.5) 06/11/23 11:03 Globulin 2.3 g/dL (2.1-4.2) 06/11/23 11:03 Albumin/Globulin Ratio 1.4 (1.0-2.2) 06/11/23 11:03 Lipase 103 U/L (11-82) H 06/11/23 11:03 TSH 0.40 uIU/mL (0.34-5.60) 06/11/23 11:03 Urine Color YELLOW 06/11/23 13:59 Urine Clarity SL. CLOUDY (CLEAR) 06/11/23 13:59 Urine pH 6.0 PH (5.0-7.5) 06/11/23 13:59 Ur Specific [place] 1.010 (1.002-1.030) 06/11/23 13:59 Urine Protein NEGATIVE mg/dL (NEGATIVE) 06/11/23 13:59 Urine Glucose (UA) NEGATIVE mg/dL (NEGATIVE) 06/11/23 13:59 Urine Ketones NEGATIVE mg/dL (NEGATIVE) 06/11/23 13:59 Urine Occult Blood TRACE-LYSE (NEGATIVE) 06/11/23 13:59 Urine Nitrite NEGATIVE (NEGATIVE) 06/11/23 13:59 Urine Bilirubin NEGATIVE (NEGATIVE) 06/11/23 13:59 Urine Urobilinogen 0.2 (NORMAL) E.U./dL (NORMAL) 06/11/23 13:59 Ur Leukocyte Esterase MODERATE (NEGATIVE) H 06/11/23 13:59 Urine RBC 6-10 /HPF (0-5) H 06/11/23 13:59 Urine WBC 6-10 /HPF (0-5) H 06/11/23 13:59 Ur Squamous Epith Cells MANY Squamous (<= Few) H 06/11/23 13:59 Urine Bacteria Rare /HPF (None Seen) 06/11/23 13:59 Urine Yeast PRESENT 06/11/23 13:59 Ur Microscopic Review INDICATED 06/11/23 13:59 Urine Culture Comments NOT INDICATED 06/11/23 13:59 Nasal Adenovirus (PCR) NOT DETECTED 06/11/23 11:03 Nasal B. parapertussis DNA (PCR) NOT DETECTED 06/11/23 11:03 Nasal Coronavir 229E PCR NOT DETECTED 06/11/23 11:03 Nasal Coronavir HKU1 PCR NOT DETECTED 06/11/23 11:03 Nasal Coronavir NL63 PCR NOT DETECTED 06/11/23 11:03 Nasal Coronavir OC43 PCR NOT DETECTED 06/11/23 11:03 Nasal Enterovir/Rhinovir PCR NOT DETECTED 06/11/23 11:03 Nasal Influenza B PCR NOT DETECTED 06/11/23 11:03 Nasal Influenza A PCR NOT DETECTED 06/11/23 11:03 Nasal Parainfluen 1 PCR NOT DETECTED 06/11/23 11:03 Nasal Parainfluen 2 PCR NOT DETECTED 06/11/23 11:03 Nasal Parainfluen 3 PCR NOT DETECTED 06/11/23 11:03 Nasal Parainfluen 4 PCR NOT DETECTED 06/11/23 11:03 Nasal RSV (PCR) NOT DETECTED 06/11/23 11:03 Nasal B.pertussis DNA PCR NOT DETECTED 06/11/23 11:03 Nasal C.pneumoniae (PCR) NOT DETECTED 06/11/23 11:03 Sesar Human Metapneumo PCR NOT DETECTED 06/11/23 11:03 Nasal M.pneumoniae (PCR) NOT DETECTED 06/11/23 11:03 Nasal SARS-CoV-2 (PCR) NOT DETECTED 06/11/23 11:03 ABX Reporting Has patient been on IV antibiotics over the past 48 hours?: No Current Medications - Current Medications Current Medications: Active Medications Heparin Sodium (Porcine) (Heparin 5,000 Unit/Ml Vial) 5,000 unit SUBQ BID [facility] Last Admin: 06/13/23 08:41 Dose: 5,000 unit Magnesium Oxide (Magnesium Oxide 400 Mg Tablet) 400 mg PO DAILYWM [facility] Last Admin: 06/13/23 08:41 Dose: 400 mg Multi-Ingredient Ointment (Zinc Oxide 20% Oint 30 Gm Tube) 1 applic TOP PRN PRN PRN Reason: Skin Care Last Admin: 06/12/23 14:43 Dose: 1 applic Polyethylene Glycol (Polyethylene Glycol 3350 17 Gm Packet) 17 gm PO DAILY [facility] Last Admin: 06/13/23 08:41 Dose: 17 gm Sodium Chloride (Sodium Chloride Flush 0.9% 10 Ml Syringe) 10 ml IVP PRN PRN PRN Reason: NEEDED PER PROVIDER ORDERS Last Admin: 06/12/23 08:28 Dose: 10 ml Sodium Chloride (Sodium Chloride Flush 0.9% 10 Ml Syringe) 10 ml IVP 0100,0900,1700 [facility] Last Admin: 06/13/23 08:42 Dose: 10 ml Atorvastatin [Lipitor] 20 mg PO HS 12/01/22 Estrogens, Conjugated Cream [Premarin Cream] 1 gm VG QPM 12/01/22 Lidocaine Patch 5% [Lidoderm Patch] 1 each TOP DAILY 12/01/22 Losartan Potassium 25 mg PO DAILY 12/01/22 Metoprolol Tartrate [Lopressor] 25 mg PO DAILY 12/01/22 Naloxone HCl [Narcan] 4 mg NS ONCE PRN 12/01/22 Timolol 0.5% Ophth Drops [Timoptic 0.5% Ophth Drops] 1 drops OPTH BID 12/01/22 Amitriptyline [Elavil] 10 mg PO HS 06/11/23 Docusate Sodium [Dulcolax Stool Softener] 100 mg PO DAILY 06/11/23 Furosemide [Lasix] 40 mg PO DAILY 06/11/23 hydroCHLOROthiazide [Hydrodiuril] 25 mg PO DAILY 06/11/23 metFORMIN [Glucophage] 500 mg PO ONCE 06/11/23
[2023-06-13] MEDS: ATORVASTATIN 10 MG TABLET PO SCH (21:36)
[2023-06-13] MEDS: METOPROLOL TARTRATE 25 MG TABLET PO SCH (21:36)
[2023-06-13] MEDS: TIMOLOL 0.5% OPHTH DROPS RIGHTEYE SCH (21:38)
[2023-06-13] MEDS: INSULIN LISPRO 300 UNIT/3 ML PEN SUBQ SCH (21:46)
[2023-06-14 06:37] LABS: ALBUMIN/GLOBULIN RATIO 1.2 (1.0-2.2); BILIRUBIN,TOTAL 0.6 mg/dL (0.2-1.0); CALCIUM 9.6 mg/dL (8.5-10.3); MAGNESIUM 1.6 mg/dL (1.7-2.3); PHOSPHORUS 1.2 mg/dL (2.5-5.0); POTASSIUM 3.5 mmol/L (3.5-4.5); TOTAL PROTEIN 5.5 g/dL (6.4-8.9)
[2023-06-14] MEDS: LOSARTAN 50 MG TABLET PO SCH (08:08)
[2023-06-14] MEDS: dexAMETHasone 4 MG TABLET PO SCH (08:08)
[2023-06-14] MEDS ORDERED: ONDANSETRON 4 MG/2 ML VIAL IVP PRN (12:49)
--- NOTE | 2023-06-14 15:54 | CT Report ---
PROCEDURE: Head WO INDICATIONS: obtundation TECHNIQUE: Noncontrast 4.5 mm thick angled axial sections acquired from the foramen magnum to the vertex. For r adiation dose reduction, the following was used: automated exposure control, adjustment of mA and/or kV according to patient size. COMPARISON: None FINDINGS: Image quality: Diagnostic CSF spaces: Basal cisterns are patent. Lateral ventricles are symmetric. Volume: Vascular calcifications. Periventricular white matter disease is commonly seen with chronic m icroangiopathy. Volume loss is present. These findings are mild to moderate. Brain: No intracranial hemorrhage. Robin-white differentiation is grossly maintained. Craniofacial structures: No high-grade paranasal sinus opacification. Partially empty sella. IMPRESSION: No acute intracranial abnormality. If there is high concern for parenchymal pathology, consider furth er evaluation with MRI. Reviewed by: Chao Shannon MD on 06/14/2023 3:52 PM PST Approved by: Chao Shannon MD on 06/14/2023 3:52 PM PST Station ID: [id number]
--- NOTE | 2023-06-14 16:18 | PROVIDER PROGRESS NOTE ---
Assessment/Plan - Problem List (1) AMS (altered mental status) Assessment/Plan: Mental status changes at admission were most likely multifactorial and secondary to a UTI, hyponatremia and significant uremia with a BUN of 121. She got antibx, and both the Na and BUN/creat have improved considerably. Despite those improvements, today the patient is more obtunded than she was the past several days. She is not opening her eyes, she is only drinking liquids from her meal trays, she is also less communicative Plan: STAT head CT was done today and it showed no bleeding, no acute findings Will cont to provide iv support, since she has nearly no caloric intake Initial plan was to order PT and OT but she is so somnolent today that she cannot work with them I will request a Palliative Care consult, re: FTT and code status and end of life decisions (2) Hypernatremia All labs were reviewed. She came in with Hyponatremia, got iv fluids and Na was correcting. Today Na is excessive at 146. Plan: Since she is not eating and not drinking much, will resume iv fluids using 0.45 NS Follow BMP daily (3) Prerenal azotemia All labs were reviewed. Today she has a normal creat but has prerenal BUN/creat ratio of 56/1.0 Plan: As in #2 (4) DM type 2 The reconciled med list shows that the patient was on metformin and insulin at home. She is also on Decadron 4 mg daily at home which was continued here. I see no indication for her to be on Decadron. The Decadron has raised her glucose level as high as 400s while here Plan: Continue with hypoglycemia protocol, fingerstick checks, sliding scale insulin coverage I will decrease her Decadron from 4 mg daily to 2 mg daily, she will require a slow taper down to off (5) Abnormal CXR Chest x-ray revealed cephalization of vessels and patient has significant lower extremity edema. Plan: Due to concern for heart failure, an Echocardiogram was ordered to evaluate LV and RV function and to evaluate for valvular heart disease. We have Echo here only Tues- (today is ) (6) Urinary tract infection TREATED U/A was abn and she had AMS at admission She received one dose of fosfomycin (7) Acute on chronic renal insufficiency Assessment/Plan: RESOLVED Patient creatinine In May 2023 was 1.4. At admission, her creatinine was 3.3. She reported decreased oral intake over the last several weeks. Creatinine and uremia have significantly improved since admission. IV fluids were stopped Plan: Follow BMP daily (8) Hypomagnesia RESOLVED Plan: Continue to monitor and replace as needed. (8) Hyponatremia Patient had hypovolemic hyponatremia. RESOLVED with iv saline - Current Meds Current Meds: Current Medications Generic Name Dose Route Start Last Admin Trade Name Freq PRN Reason Stop Dose Admin Atorvastatin Calcium 20 mg 06/13/23 21:00 06/13/23 21:36 Atorvastatin 10 Mg Tablet PO 20 mg HS SEN Administration Dexamethasone 4 mg 06/14/23 09:00 06/14/23 08:08 Dexamethasone 4 Mg Tablet PO 4 mg DAILY SEN Administration Heparin Sodium (Porcine) 5,000 unit 06/11/23 21:00 06/14/23 08:22 Heparin 5,000 Unit/Ml Vial SUBQ 5,000 unit BID SEN Administration Insulin Human Lispro 1 - 9 unit 06/13/23 21:00 06/14/23 12:01 Insulin Lispro 300 Unit/3 Ml Pen SUBQ 3 unit 0800,1200,1700,2100 SEN Administration Protocol Losartan Potassium 25 mg 06/14/23 09:00 06/14/23 08:08 Losartan 50 Mg Tablet PO 25 mg DAILY SEN Administration Magnesium Oxide 400 mg 06/11/23 16:00 06/14/23 08:08 Magnesium Oxide 400 Mg Tablet PO 400 mg DAILYWM SEN Administration Metoprolol Tartrate 25 mg 06/13/23 21:00 06/14/23 08:09 Metoprolol Tartrate 25 Mg Tablet PO 25 mg BID SEN Administration Multi-Ingredient Ointment 1 applic 06/12/23 00:37 06/13/23 13:49 Zinc Oxide 20% Oint 30 Gm Tube TOP 1 applic PRN PRN Administration Skin Care Polyethylene Glycol 17 gm 06/13/23 09:00 06/14/23 08:08 Polyethylene Glycol 3350 17 Gm Packet PO 17 gm DAILY SEN Administration Sodium Chloride 10 ml 06/11/23 15:21 06/12/23 08:28 Sodium Chloride Flush 0.9% 10 Ml Syringe IVP 10 ml PRN PRN Administration NEEDED PER PROVIDER ORDERS Sodium Chloride 10 ml 06/11/23 17:00 06/14/23 08:26 Sodium Chloride Flush 0.9% 10 Ml Syringe IVP 10 ml 0100,0900,1700 SEN Administration Timolol Maleate 1 drops 06/13/23 21:00 06/14/23 08:25 Timolol 0.5% Ophth Drops RIGHTEYE 1 drops BID SEN Administration - Lab Result Fish Bone Diagrams: 06/12/23 04:59 06/17/23 05:19 - Additional Planning My Orders: My Active Orders 06/14/23 12:49 Ondansetron Inj [Zofran Inj] 4 mg IVP Q6HR PRN 06/14/23 14:43 San Continuation and Care [RC] QSHIFT San Insertion [RC] QSHIFT 06/14/23 Dinner Dysphagia - Puree [DIET] 06/14/23 17:00 Multivitamin W/Minerals [Theragran M] 1 tab PO DAILYWM 06/15/23 09:00 Cholecalciferol [Vitamin D3] 50 mcg PO DAILY Subjective - Subjective Patient Reports: Other (Not communicating, opens eyes but goes back to sleep, moves spontaneously in bed, is refusing her food tray) Objective Vital Signs: Vital Signs - 24 hr 06/13/23 06/14/23 06/14/23 21:36 00:41 07:50 Temperature 36.6 C 36.5 C Heart Rate [ 111 H 116 H Brachial] Respiratory 16 16 Rate Blood Pressure 140/56 H Blood Pressure 126/60 145/70 H [Right Brachial artery] O2 Saturation 99 06/14/23 06/14/23 08:09 16:00 Temperature 36.5 C Heart Rate [ 109 H Brachial] Respiratory 18 Rate Blood Pressure 145/70 H Blood Pressure 132/62 H [Right Brachial artery] O2 Saturation 95 Oxygen O2 Source Room air I&O (Last 24 Hrs): Intake and Output Totals x24h 06/12/23 06/13/23 06/14/23 23:59 23:59 23:59 Intake Total 3213.333 337 360 Output Total 9347 3820 9308 Balance 6452.070 -8372 -6505 General: Other (lethargic, opens eyes to voice, does not speak) HEENT: Mucous membr. moist/pink Neck: Supple Neuro: Other (Lethargic, opens eyes to voice but does not speak, falls back asleep, seems to move all extremities spontaneous) Cardiovascular: Other (syst murmur) Respiratory: No respiratory distress Abdomen: Soft, No tenderness Extremities: Other (1+ edema) - Results Results: Laboratory Results WBC 12.7 x10^3/uL (4.8-10.8) H 06/12/23 04:59 RBC 3.94 10^6/uL (4.20-5.40) L 06/12/23 04:59 Hgb 11.4 g/dL (12.0-16.0) L 06/12/23 04:59 Hct 33.7 % (37.0-47.0) L 06/12/23 04:59 MCV 85.5 fL (81.0-99.0) 06/12/23 04:59 MCH 28.9 pg (27.0-31.0) 06/12/23 04:59 MCHC 33.8 g/dL (32.0-36.0) 06/12/23 04:59 RDW 14.9 % (12.0-15.0) 06/12/23 04:59 Plt Count 153 10^3/uL (130-450) 06/12/23 04:59 MPV 10.9 fL (7.9-10.8) H 06/12/23 04:59 Neut # (Auto) 10.0 10^3/uL (1.5-6.6) H 06/12/23 04:59 Lymph # (Auto) 1.7 10^3/uL (1.5-3.5) 06/12/23 04:59 [place] # (Auto) 0.7 10^3/uL (0.0-1.0) 06/12/23 04:59 Eos # (Auto) 0.0 10^3/uL (0.0-0.7) 06/12/23 04:59 Baso # (Auto) 0.0 10^3/uL (0.0-0.1) 06/12/23 04:59 Absolute Nucleated RBC 0.07 x10^3/uL 06/12/23 04:59 Nucleated RBC % 0.6 /100WBC 06/12/23 04:59 Manual Slide Review Indicated 06/11/23 12:15 WBC Morphology NORMAL APPEARANCE (NORMAL) 06/11/23 12:15 Platelet Estimate (NORMAL) 06/11/23 12:15 Platelet Morphology PLATELET CLUMPING (NORMAL) 06/11/23 12:15 RBC Morph Micro Appear NORMAL APPEARANCE (NORMAL) 06/11/23 12:15 Sodium 146 mmol/L (135-145) H 06/14/23 05:05 Potassium 3.5 mmol/L (3.5-4.5) 06/14/23 05:05 Chloride 109 mmol/L (101-111) 06/14/23 05:05 Carbon Dioxide 30 mmol/L (21-32) 06/14/23 05:05 Anion Gap 7.0 (6-13) 06/14/23 05:05 BUN 56 mg/dL (6-20) H 06/14/23 05:05 Creatinine 1.0 mg/dL (0.6-1.3) 06/14/23 05:05 Estimated GFR (MDRD) 65 (>89) L 06/14/23 05:05 Glucose 245 mg/dL (74-104) H 06/14/23 05:05 POC Whole Bld Glucose 195 mg/dL (70 - 100) H 06/14/23 11:30 Lactic Acid 2.3 mmol/L (0.5-2.2) H 06/11/23 11:03 Calcium 9.6 mg/dL (8.5-10.3) 06/14/23 05:05 Phosphorus 1.2 mg/dL (2.5-5.0) L 06/14/23 05:05 Magnesium 1.6 mg/dL (1.7-2.3) L 06/14/23 05:05 Total Bilirubin 0.6 mg/dL (0.2-1.0) 06/14/23 05:05 AST 22 IU/L (10-42) 06/14/23 05:05 ALT 24 IU/L (10-60) 06/14/23 05:05 Alkaline Phosphatase 76 IU/L (42-121) 06/14/23 05:05 Troponin I High Sens 107.4 ng/L (2.3-14.8) H* 06/12/23 00:00 Total Protein 5.5 g/dL (6.4-8.9) L 06/14/23 05:05 Albumin 3.0 g/dL (3.2-5.5) L 06/14/23 05:05 Globulin 2.5 g/dL (2.1-4.2) 06/14/23 05:05 Albumin/Globulin Ratio 1.2 (1.0-2.2) 06/14/23 05:05 Lipase 103 U/L (11-82) H 06/11/23 11:03 TSH 0.40 uIU/mL (0.34-5.60) 06/11/23 11:03 Urine Color YELLOW 06/11/23 13:59 Urine Clarity SL. CLOUDY (CLEAR) 06/11/23 13:59 Urine pH 6.0 PH (5.0-7.5) 06/11/23 13:59 Ur Specific [place] 1.010 (1.002-1.030) 06/11/23 13:59 Urine Protein NEGATIVE mg/dL (NEGATIVE) 06/11/23 13:59 Urine Glucose (UA) NEGATIVE mg/dL (NEGATIVE) 06/11/23 13:59 Urine Ketones NEGATIVE mg/dL (NEGATIVE) 06/11/23 13:59 Urine Occult Blood TRACE-LYSE (NEGATIVE) 06/11/23 13:59 Urine Nitrite NEGATIVE (NEGATIVE) 06/11/23 13:59 Urine Bilirubin NEGATIVE (NEGATIVE) 06/11/23 13:59 Urine Urobilinogen 0.2 (NORMAL) E.U./dL (NORMAL) 06/11/23 13:59 Ur Leukocyte Esterase MODERATE (NEGATIVE) H 06/11/23 13:59 Urine RBC 6-10 /HPF (0-5) H 06/11/23 13:59 Urine WBC 6-10 /HPF (0-5) H 06/11/23 13:59 Ur Squamous Epith Cells MANY Squamous (<= Few) H 06/11/23 13:59 Urine Bacteria Rare /HPF (None Seen) 06/11/23 13:59 Urine Yeast PRESENT 06/11/23 13:59 Ur Microscopic Review INDICATED 06/11/23 13:59 Urine Culture Comments NOT INDICATED 06/11/23 13:59 Nasal Adenovirus (PCR) NOT DETECTED 06/11/23 11:03 Nasal B. parapertussis DNA (PCR) NOT DETECTED 06/11/23 11:03 Nasal Coronavir 229E PCR NOT DETECTED 06/11/23 11:03 Nasal Coronavir HKU1 PCR NOT DETECTED 06/11/23 11:03 Nasal Coronavir NL63 PCR NOT DETECTED 06/11/23 11:03 Nasal Coronavir OC43 PCR NOT DETECTED 06/11/23 11:03 Nasal Enterovir/Rhinovir PCR NOT DETECTED 06/11/23 11:03 Nasal Influenza B PCR NOT DETECTED 06/11/23 11:03 Nasal Influenza A PCR NOT DETECTED 06/11/23 11:03 Nasal Parainfluen 1 PCR NOT DETECTED 06/11/23 11:03 Nasal Parainfluen 2 PCR NOT DETECTED 06/11/23 11:03 Nasal Parainfluen 3 PCR NOT DETECTED 06/11/23 11:03 Nasal Parainfluen 4 PCR NOT DETECTED 06/11/23 11:03 Nasal RSV (PCR) NOT DETECTED 06/11/23 11:03 Nasal B.pertussis DNA PCR NOT DETECTED 06/11/23 11:03 Nasal C.pneumoniae (PCR) NOT DETECTED 06/11/23 11:03 Sesar Human Metapneumo PCR NOT DETECTED 06/11/23 11:03 Nasal M.pneumoniae (PCR) NOT DETECTED 06/11/23 11:03 Nasal SARS-CoV-2 (PCR) NOT DETECTED 06/11/23 11:03
[2023-06-14] MEDS ORDERED: MULTIVITAMIN W/MINERALS TABLET PO SCH (17:00)
[2023-06-14] MEDS: SODIUM PHOSPHATE 15 MMOL in SODIUM CHLORIDE 0.9% 250 ML IV SCH (17:12)
[2023-06-14] MEDS: SODIUM CHLORIDE 0.45% 1,000 ML IV SCH (17:21)
[2023-06-14] MEDS: MULTIVITAMIN W/IRON, MINERALS 15 ML PO SCH (17:25)
[2023-06-14] MEDS: METOPROLOL SUCCINATE 25 MG TABLET PO SCH (22:05)
[2023-06-15] MEDS: dexAMETHasone 4 MG TABLET PO SCH (08:43)
[2023-06-15] MEDS: CHOLECALCIFEROL 25 MCG TABLET PO SCH (08:44)
[2023-06-15] MEDS: MULTIVITAMIN W/IRON, MINERALS 15 ML PO SCH (08:48)
--- NOTE | 2023-06-15 19:09 | PROVIDER PROGRESS NOTE ---
Assessment/Plan - Problem List (1) AMS (altered mental status) Assessment/Plan: Mental status changes at admission were most likely multifactorial and secondary to a UTI, hyponatremia and significant uremia with a BUN of 121. She got antibx, and both the Na and BUN/creat have improved considerably. Despite those improvements, yesterday 06/14/23, the patient was more obtunded than she was the past several days. She was not opening her eyes, she was only drinking liquids from her meal trays, she has been also less communicative STAT head CT was done and it showed no bleeding, no acute findings Plan: Will cont to provide ivsupport, since she has nearly no caloric intake Initial plan was to order PT and OT but she is so somnolent yesterday and today that she cannot work with them I am awaiting a Palliative Care consult be done today, re: FTT and code status and end of life decisions (2) FTT She has been mostly asleep, only drinking liquids from her meal trays, she has been also less communicative Plan: She is probably reaching end-of-life. I await the recommendations from the palliative care meeting with the family (3) Tachycardia She has started to become tachycardic with heart rate greater than 100. Guarded this may be from dehydration due to poor oral intake Her med list has been reconciled and she has not been getting her heart rate- slowing meds Plan: Will give as needed IV heart rate slowing meds and resume her usual meds (4) Prerenal azotemia All labs were reviewed. On 06/14/23 she has a prerenal BUN/creat ratio of 56/1.0 Plan: As in #1&2 (5) Hypernatremia All labs were reviewed. She came in with Hyponatremia, got iv fluids and Na was correcting. Na became excessive at 146. Plan: Since she is not eating and not drinking much, will resume iv fluids using 0.45 NS Follow BMP daily (6) DM type 2 The reconciled med list shows that the patient was on metformin and insulin at home. She is also on Decadron 4 mg daily at home which was continued here. I see no indication for her to be on Decadron. The Decadron has raised her glucose level as high as 400s while here Plan: Continue with hypoglycemia protocol, fingerstick checks, sliding scale insulin coverage I will decrease her Decadron from 4 mg daily to 2 mg daily, she will require a slow taper down to off (7) Abnormal CXR Chest x-ray revealed cephalization of vessels and patient has significant lower extremity edema. She has not been hypoxic, not needing any supplemental O2 Plan: Due to concern for heart failure, an Echocardiogram was ordered to evaluate LV and RV function and to evaluate for valvular heart disease. (We have Echo here only -) (8) Urinary tract infection TREATED U/A was abn and she had AMS at admission She received one dose of fosfomycin (9) Acute on chronic renal insufficiency Assessment/Plan: RESOLVED Patient creatinine In May 2023 was 1.4. At admission, her creatinine was 3.3. She reported decreased oral intake over the last several weeks. Creatinine and uremia have significantly improved since admission. IV fluids were stopped Plan: Follow BMP daily (10) Hypomagnesia RESOLVED Plan: Continue to monitor and replace as needed. - Current Meds Current Meds: Current Medications Generic Name Dose Route Start Last Admin Trade Name Theresa PRN Reason Stop Dose Admin Cholecalciferol 50 mcg 06/15/23 09:00 06/15/23 08:44 Cholecalciferol 25 Mcg Tablet PO 50 mcg DAILY SEN Administration Dexamethasone 2 mg 06/15/23 09:00 06/15/23 08:43 Dexamethasone 4 Mg Tablet PO 2 mg DAILY SEN Administration Heparin Sodium (Porcine) 5,000 unit 06/11/23 21:00 06/15/23 08:48 Heparin 5,000 Unit/Ml Vial SUBQ 5,000 unit BID SEN Administration Sodium Chloride 1,000 mls @ 50 mls/hr 06/14/23 17:00 06/15/23 13:32 Normal Saline 0.45% IV 50 mls/hr .Q20H SEN Administration Insulin Human Lispro 1 - 9 unit 06/13/23 21:00 06/15/23 17:34 Insulin Lispro 300 Unit/3 Ml Pen SUBQ 5 unit 0800,1200,1700,2100 SEN Administration Protocol Magnesium Oxide 400 mg 06/11/23 16:00 06/15/23 08:41 Magnesium Oxide 400 Mg Tablet PO 400 mg DAILYWM SEN Administration Metoprolol Succinate 37.5 mg 06/14/23 21:00 06/15/23 08:41 Metoprolol Succinate 25 Mg Tablet PO 37.5 mg BID SEN Administration Multi-Ingredient Ointment 1 applic 06/12/23 00:37 06/13/23 13:49 Zinc Oxide 20% Oint 30 Gm Tube TOP 1 applic PRN PRN Administration Skin Care Polyethylene Glycol 17 gm 06/13/23 09:00 06/15/23 08:44 Polyethylene Glycol 3350 17 Gm Packet PO 17 gm DAILY SEN Administration Sodium Chloride 10 ml 06/11/23 15:21 06/12/23 08:28 Sodium Chloride Flush 0.9% 10 Ml Syringe IVP 10 ml PRN PRN Administration NEEDED PER PROVIDER ORDERS Sodium Chloride 10 ml 06/11/23 17:00 06/15/23 17:30 Sodium Chloride Flush 0.9% 10 Ml Syringe IVP 10 ml 0100,0900,1700 SEN Administration Timolol Maleate 1 drops 06/13/23 21:00 06/15/23 08:45 Timolol 0.5% Ophth Drops RIGHTEYE 1 drops BID SEN Administration - Lab Result Fish Bone Diagrams: 06/12/23 04:59 06/17/23 05:19 - Additional Planning My Orders: My Active Orders 06/14/23 21:00 Metoprolol Succinate [Toprol Xl] 37.5 mg PO BID 06/15/23 Palliative Care Consult [CONS] Routine 06/15/23 09:00 Cholecalciferol [Vitamin D3] 50 mcg PO DAILY dexAMETHasone [Decadron] 2 mg PO DAILY 06/15/23 Lunch Dysphagia - Puree [DIET] 06/16/23 08:00 Multivitamin [Theragran] 1 tab PO DAILYWM Subjective - Subjective Nursing Reports: Other (Not communicating, sleeping all day, refuses all her food which was downgraded to pureed. She is only drinking liquids from her meal trays) Objective Vital Signs: Vital Signs - 24 hr 06/14/23 06/14/23 06/15/23 21:58 23:34 07:48 Temperature 36.9 C 36.8 C 36.0 C L Heart Rate [ 110 H 115 H Apical] Heart Rate [ 113 H Brachial] Respiratory 18 18 Rate Blood Pressure 141/69 H 126/65 160/84 H [Right Brachial artery] O2 Saturation 97 97 95 06/15/23 15:23 Temperature 36.5 C Heart Rate [ Apical] Heart Rate [ 106 H Brachial] Respiratory 16 Rate Blood Pressure 125/53 L [Right Brachial artery] O2 Saturation 96 Oxygen O2 Source Room air I&O (Last 24 Hrs): Intake and Output Totals x24h 06/13/23 06/14/23 06/15/23 23:59 23:59 23:59 Intake Total 297 705 7380 Output Total 2250 0925 650 Balance -1913 -1375 1427 General: Other (Lethargic, asleep all day. Moves in response to touch. Does not open eyes to voice) HEENT: Mucous membr. moist/pink Neuro: Other (Moves in response to touch. Does not open eyes to voice. Speaks in 2 word sentences only) Cardiovascular: Other (syst murmur) Respiratory: No respiratory distress Abdomen: Soft, No tenderness Extremities: Other (1+ edema) - Results Results: Laboratory Results WBC 12.7 x10^3/uL (4.8-10.8) H 06/12/23 04:59 RBC 3.94 10^6/uL (4.20-5.40) L 06/12/23 04:59 Hgb 11.4 g/dL (12.0-16.0) L 06/12/23 04:59 Hct 33.7 % (37.0-47.0) L 06/12/23 04:59 MCV 85.5 fL (81.0-99.0) 06/12/23 04:59 MCH 28.9 pg (27.0-31.0) 06/12/23 04:59 MCHC 33.8 g/dL (32.0-36.0) 06/12/23 04:59 RDW 14.9 % (12.0-15.0) 06/12/23 04:59 Plt Count 153 10^3/uL (130-450) 06/12/23 04:59 MPV 10.9 fL (7.9-10.8) H 06/12/23 04:59 Neut # (Auto) 10.0 10^3/uL (1.5-6.6) H 06/12/23 04:59 Lymph # (Auto) 1.7 10^3/uL (1.5-3.5) 06/12/23 04:59 [place] # (Auto) 0.7 10^3/uL (0.0-1.0) 06/12/23 04:59 Eos # (Auto) 0.0 10^3/uL (0.0-0.7) 06/12/23 04:59 Baso # (Auto) 0.0 10^3/uL (0.0-0.1) 06/12/23 04:59 Absolute Nucleated RBC 0.07 x10^3/uL 06/12/23 04:59 Nucleated RBC % 0.6 /100WBC 06/12/23 04:59 Manual Slide Review Indicated 06/11/23 12:15 WBC Morphology NORMAL APPEARANCE (NORMAL) 06/11/23 12:15 Platelet Estimate (NORMAL) 06/11/23 12:15 Platelet Morphology PLATELET CLUMPING (NORMAL) 06/11/23 12:15 RBC Morph Micro Appear NORMAL APPEARANCE (NORMAL) 06/11/23 12:15 Sodium 146 mmol/L (135-145) H 06/14/23 05:05 Potassium 3.5 mmol/L (3.5-4.5) 06/14/23 05:05 Chloride 109 mmol/L (101-111) 06/14/23 05:05 Carbon Dioxide 30 mmol/L (21-32) 06/14/23 05:05 Anion Gap 7.0 (6-13) 06/14/23 05:05 BUN 56 mg/dL (6-20) H 06/14/23 05:05 Creatinine 1.0 mg/dL (0.6-1.3) 06/14/23 05:05 Estimated GFR (MDRD) 65 (>89) L 06/14/23 05:05 Glucose 245 mg/dL (74-104) H 06/14/23 05:05 POC Whole Bld Glucose 261 mg/dL (70 - 100) H 06/15/23 16:43 Lactic Acid 2.3 mmol/L (0.5-2.2) H 06/11/23 11:03 Calcium 9.6 mg/dL (8.5-10.3) 06/14/23 05:05 Phosphorus 1.2 mg/dL (2.5-5.0) L 06/14/23 05:05 Magnesium 1.6 mg/dL (1.7-2.3) L 06/14/23 05:05 Total Bilirubin 0.6 mg/dL (0.2-1.0) 06/14/23 05:05 AST 22 IU/L (10-42) 06/14/23 05:05 ALT 24 IU/L (10-60) 06/14/23 05:05 Alkaline Phosphatase 76 IU/L (42-121) 06/14/23 05:05 Troponin I High Sens 107.4 ng/L (2.3-14.8) H* 06/12/23 00:00 Total Protein 5.5 g/dL (6.4-8.9) L 06/14/23 05:05 Albumin 3.0 g/dL (3.2-5.5) L 06/14/23 05:05 Globulin 2.5 g/dL (2.1-4.2) 06/14/23 05:05 Albumin/Globulin Ratio 1.2 (1.0-2.2) 06/14/23 05:05 Lipase 103 U/L (11-82) H 06/11/23 11:03 TSH 0.40 uIU/mL (0.34-5.60) 06/11/23 11:03 Urine Color YELLOW 06/11/23 13:59 Urine Clarity SL. CLOUDY (CLEAR) 06/11/23 13:59 Urine pH 6.0 PH (5.0-7.5) 06/11/23 13:59 Ur Specific [place] 1.010 (1.002-1.030) 06/11/23 13:59 Urine Protein NEGATIVE mg/dL (NEGATIVE) 06/11/23 13:59 Urine Glucose (UA) NEGATIVE mg/dL (NEGATIVE) 06/11/23 13:59 Urine Ketones NEGATIVE mg/dL (NEGATIVE) 06/11/23 13:59 Urine Occult Blood TRACE-LYSE (NEGATIVE) 06/11/23 13:59 Urine Nitrite NEGATIVE (NEGATIVE) 06/11/23 13:59 Urine Bilirubin NEGATIVE (NEGATIVE) 06/11/23 13:59 Urine Urobilinogen 0.2 (NORMAL) E.U./dL (NORMAL) 06/11/23 13:59 Ur Leukocyte Esterase MODERATE (NEGATIVE) H 06/11/23 13:59 Urine RBC 6-10 /HPF (0-5) H 06/11/23 13:59 Urine WBC 6-10 /HPF (0-5) H 06/11/23 13:59 Ur Squamous Epith Cells MANY Squamous (<= Few) H 06/11/23 13:59 Urine Bacteria Rare /HPF (None Seen) 06/11/23 13:59 Urine Yeast PRESENT 06/11/23 13:59 Ur Microscopic Review INDICATED 06/11/23 13:59 Urine Culture Comments NOT INDICATED 06/11/23 13:59 Nasal Adenovirus (PCR) NOT DETECTED 06/11/23 11:03 Nasal B. parapertussis DNA (PCR) NOT DETECTED 06/11/23 11:03 Nasal Coronavir 229E PCR NOT DETECTED 06/11/23 11:03 Nasal Coronavir HKU1 PCR NOT DETECTED 06/11/23 11:03 Nasal Coronavir NL63 PCR NOT DETECTED 06/11/23 11:03 Nasal Coronavir OC43 PCR NOT DETECTED 06/11/23 11:03 Nasal Enterovir/Rhinovir PCR NOT DETECTED 06/11/23 11:03 Nasal Influenza B PCR NOT DETECTED 06/11/23 11:03 Nasal Influenza A PCR NOT DETECTED 06/11/23 11:03 Nasal Parainfluen 1 PCR NOT DETECTED 06/11/23 11:03 Nasal Parainfluen 2 PCR NOT DETECTED 06/11/23 11:03 Nasal Parainfluen 3 PCR NOT DETECTED 06/11/23 11:03 Nasal Parainfluen 4 PCR NOT DETECTED 06/11/23 11:03 Nasal RSV (PCR) NOT DETECTED 06/11/23 11:03 Nasal B.pertussis DNA PCR NOT DETECTED 06/11/23 11:03 Nasal C.pneumoniae (PCR) NOT DETECTED 06/11/23 11:03 Sesar Human Metapneumo PCR NOT DETECTED 06/11/23 11:03 Nasal M.pneumoniae (PCR) NOT DETECTED 06/11/23 11:03 Nasal SARS-CoV-2 (PCR) NOT DETECTED 06/11/23 11:03
[2023-06-15] MEDS: INSULIN LISPRO 300 UNIT/3 ML PEN SUBQ SCH (21:34)
[2023-06-16] MEDS: MULTIVITAMIN TABLET PO SCH (08:12)
[2023-06-16] MEDS ORDERED: SODIUM CHLORIDE 0.9% 0 ML ONE (09:37)
[2023-06-16 14:40] LABS: ALBUMIN 2.7 g/dL (3.2-5.5); ALBUMIN/GLOBULIN RATIO 1.2 (1.0-2.2); BILIRUBIN,TOTAL 0.4 mg/dL (0.2-1.0); CALCIUM 8.6 mg/dL (8.5-10.3); CREATININE 0.8 mg/dL (0.6-1.3); POTASSIUM 4.5 mmol/L (3.5-4.5); TOTAL PROTEIN 4.9 g/dL (6.4-8.9)
--- NOTE | 2023-06-16 14:48 | XRAY Report ---
PROCEDURE: Chest for Line Placement INDICATIONS: NG placement verification TECHNIQUE: One view of the chest was acquired. COMPARISON: Chest x-ray 06/11/2023 FINDINGS: Surgical changes and devices: Right-sided central venous catheter is present with distal tip project ing over the distal SVC/right atrial junction. Nasogastric tube is present. Distal tip projects below left hemidiaphragm although is not fully included within the [id number]. Lungs and pleura: Interstitial prominence remains present. Mediastinum: Mediastinal contours appear normal. Heart size is normal. Bones and chest wall: No suspicious bony lesions. Overlying soft tissues appear unremarkable. IMPRESSION: Support lines as above. Reviewed by: Yvette Samaniego MD on 06/16/2023 2:47 PM PST Approved by: Yvette Samaniego MD on 06/16/2023 2:47 PM PST Station ID: [id number]
--- NOTE | 2023-06-16 17:03 | CONSULTATION NOTE ---
Palliative Care Consultation - Referral Referring Provider: Dr. Campa Time of Visit: 10:00-11:30 Referral setting: Hospitalized patient Referral Reason: Goals of Care/Nutritional support - Information Sources Records reviewed: RN notes reviewed, Previous records reviewed, Other (primary care notes) History/Review of Systems obtained from: Family ( Abdulaziz and daugther Brigid Davial) Exam limitations: Clinical condition (patient unable to participate in conversation) - History of Present Illness Brief History of Present Illness: This is a 77-year-old woman who presented to the emergency room on 06/11 with worsening weakness and altered mental status. She had been declining approximately over the last 2 weeks, she had had a series of tests related to workup for her aortic stenosis, they were looking at doing a TAVR. Over the last several weeks, patient been having more trouble with lower extremity edema, seen her primary care provider for referral onto cardiology. She had been getting a workup, with increased fluid retention, their perception was she was not tolerating the furosemide, would get very weak and just go to bed. There perception also is this would happen suddenly. Family also reports that she was experiencing more difficulty with her blood sugars, have recently initiated insulin, was having difficulty with diet living at [place], but had been adjusting. Patient and her came from [place], in October 2022, to be near their daughter Irma. They had been living in a home, now they are living in assisted living. This has been quite an adjustment for both of them. Abdulaziz has had an easier time as he used to be in the , and used to a routine and schedule. They have been for 46 years. Patient was ambulatory at the facility, able to use a walker they live on the third floor, go down to the dining room. She also was doing laps to stay functional, and had been able to drive prior to her most recent decline. Patient herself is difficult to stimulate on exam, her eyes roll, unable to focus. Denies pain or distress, not able to answer more than a yes or no, and is not consistent in answers. She has a significant cardiac murmur, somewhat tachyc ardiac, lower extremity edema obviously has reabsorbed with skin dry and wrinkled, patient has been taking only sips and bites. Daughter reports she is eating better, is somewhat confused why they stopped the fluids. Daughter had requested of hospitalist, IV nutrition, palliative care being asked to meet with family, to explore and define goals of care. 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 Support System: Living at [place], [facility] in October. Spoke with facility nurse, they have been independent, coming down for meals, has had increasing trouble with her health and medications over the last several weeks, but otherwise had been stable. Reports both are interactive, and appropriate in the context of memory and activities at assisted living.Her reports she still even did some cooking. Medications/Allergies - Medications Active Medication List: Active Medications Cholecalciferol (Cholecalciferol 25 Mcg Tablet) 50 mcg PO DAILY [facility] Last Admin: 06/16/23 08:11 Dose: 50 mcg Dexamethasone (Dexamethasone 4 Mg Tablet) 2 mg PO DAILY [facility] Last Admin: 06/16/23 08:10 Dose: 2 mg Heparin Sodium (Porcine) (Heparin 5,000 Unit/Ml Vial) 5,000 unit SUBQ BID [facility] Last Admin: 06/16/23 08:18 Dose: 5,000 unit Sodium Chloride (Normal Saline 0.45%) 1,000 mls @ 50 mls/hr IV .Q20H [facility] Last Admin: 06/15/23 13:32 Dose: 50 mls/hr Insulin Human Lispro (Insulin Lispro 300 Unit/3 Ml Pen) 2 - 10 unit SUBQ 0800,1200,1700,2100 [facility]; Protocol Last Admin: 06/16/23 08:17 Dose: 2 unit Magnesium Oxide (Magnesium Oxide 400 Mg Tablet) 400 mg PO DAILYWM [facility] Last Admin: 06/16/23 08:12 Dose: 400 mg Metoprolol Succinate (Metoprolol Succinate 25 Mg Tablet) 37.5 mg PO BID [facility] Last Admin: 06/16/23 08:10 Dose: 37.5 mg Multi-Ingredient Ointment (Zinc Oxide 20% Oint 30 Gm Tube) 1 applic TOP PRN PRN PRN Reason: Skin Care Last Admin: 06/15/23 21:10 Dose: 1 applic Multivitamins (Multivitamin Tablet) 1 tab PO DAILYWM [facility] Last Admin: 06/16/23 08:12 Dose: 1 tab Ondansetron HCl (Ondansetron 4 Mg/2 Ml Vial) 4 mg IVP Q6HR PRN PRN Reason: Nausea / Vomiting Polyethylene Glycol (Polyethylene Glycol 3350 17 Gm Packet) 17 gm PO DAILY [facility] Last Admin: 06/16/23 08:08 Dose: 17 gm Sodium Chloride (Sodium Chloride Flush 0.9% 10 Ml Syringe) 10 ml IVP PRN PRN PRN Reason: NEEDED PER PROVIDER ORDERS Last Admin: 06/12/23 08:28 Dose: 10 ml Sodium Chloride (Sodium Chloride Flush 0.9% 10 Ml Syringe) 10 ml IVP 0100,0900, 1700 [facility] Last Admin: 06/16/23 08:16 Dose: 10 ml Timolol Maleate (Timolol 0.5% Ophth Drops) 1 drops RIGHTEYE BID [facility] Last Admin: 06/16/23 09:39 Dose: 1 drops Atorvastatin [Lipitor] 20 mg PO HS 12/01/22 Lidocaine Patch 5% [Lidoderm Patch] 1 each TOP DAILY 12/01/22 Losartan Potassium 25 mg PO DAILY 12/01/22 Metoprolol Tartrate [Lopressor] 25 mg PO DAILY 12/01/22 Naloxone HCl [Narcan] 4 mg NS ONCE PRN 12/01/22 Timolol 0.5% Ophth Drops [Timoptic 0.5% Ophth Drops] 1 drops OPTH BID 12/01/22 Amitriptyline [Elavil] 10 mg PO HS 06/11/23 Docusate Sodium [Dulcolax Stool Softener] 100 mg PO DAILY 06/11/23 Furosemide [Lasix] 40 mg PO DAILY 06/11/23 hydroCHLOROthiazide [Hydrodiuril] 25 mg PO DAILY 06/11/23 metFORMIN [Glucophage] 500 mg PO DAILY 06/11/23 Estrogens, Conjugated [Premarin] 0.625 mg PO DAILY 06/14/23 Glipizide [Glipizide ER] 5 mg PO DAILY 06/14/23 Insulin Glargine [Lantus Solostar] 10 units SUBQ HS 06/14/23 allopurinoL [Allopurinol] 300 mg PO DAILY 06/14/23 - Allergies Allergies/Adverse Reactions: Allergies Allergy/AdvReac Type Severity Reaction Status Date / Time codeine AdvReac Unknown Verified 06/01/23 20:42 lisinopril AdvReac Unknown Verified 06/01/23 20:42 methocarbamol [From Robaxin] AdvReac Unknown Verified 06/01/23 20:42 nicotine [From Nicoderm CQ] AdvReac Unknown Verified 06/11/23 10:51 Review of Systems - Constitutional Constitutional: reports: Fatigue, Poor appetite, Weight loss - Cardiovascular Cardiovascular: reports: Other (epsisodes with furosemide) - Genitourinary Genitourinary: reports: Incontinence - Musculoskeletal Musculoskeletal: reports: Assistive devices (was ambulatory with walker) - Neurological Neurological: reports: General weakness - Endocrine Endocrine: reports: Diabetes type 2 - All Other Systems All Other Systems: reports: Other (limited as patient unable to participate;) Physical Exam - Vital Signs Vital Signs: Vital Signs x48h Temp Pulse Resp BP Pulse Ox 06/16/23 07:55 36.7 C 99 16 150/70 H 97 - Physical Exam General Appearance: positive: Lethargic Eyes Bilateral: positive: Other (difficulty focusing when opening eyes) ENT: positive: Dry mucous membranes Neck: positive: Trachea midline Cardiovascular: positive: Tachycardia, Other (murmer) Respiratory: positive: No respiratory distress, Diminished throughout Abdomen: positive: Soft Skin: positive: Dryness, Other (CVP in neck) Extremities: positive: Pedal edema (trace;) Neurologic/Psychiatric: positive: Weakness, Flat affect, Other (unable to evaluate level of understanding;orientation) Palliative Care - POLST Patient has POLST: No POLST Status: Full Code Performance Status: Patient's previous level of functioning reported as able to walk with walker, up and down to meals. They did have a wheelchair available for longer distances. She had been "doing laps". Able to manage her ADLs with minimal assist.Patient is currently bedbound, needing feeding, unable to position herself in bed. - Palliative Care Discussion: and patient been together for 46 years, he is obviously quite fond of her. He is quite tearful when speaking about her, and is hoping she will recovery. They are quite surprised by her rapid decline, described as a "free fall". Reports she has actually declined most dramatically over the last 2 or 3 weeks, and acutely over the last several days. They describe her as a fighter and quite feisty, and these changes are somewhat drastic. They are appropriately concerned regarding wondering the underlying etiology of what is happening, we do know she has multiple comorbidities, and fairly severe aortic stenosis. I did share that in the Primary note they had expressed concern regarding a guarded prognosis likely exacerbated by her heart disease, and asked them if they knew what that would be. So we discussed that there is concern that she is going continue to decline and not get better from this standpoint of the physician. We did discuss though they are concerned she is not being given fair chance, and interested in nutritional support. Counseling provided regarding a time trial to see if this will be of support for her, or turn her around. Discussed risk with with her DM and CHF, and would need close monitoring. They feel she needs nutrients to be able to operate. Asked Abdulaziz her about Code Status, he is Adamant about wanting us to try, even though did discuss the risks given her frail status. Abdulaziz is quite clear it is in alignment with their spiritual believes, he is Christianity, and believes in prolonging life, and only God can choose. Her daughter is somewhat more pragmatic, and is of the mind if patient is able to participate she can make her own decision, but otherwise the outcome may be her if she was to code, but at least it would be in God's time. We did discuss in the context of this continue to weigh benefits and burdens as we move along in her journey, can revisit at decision points. Reviewed goals, they would like to pursue nutritional support, did reassure them that Dr. Sanchez is a associate principal, and can further explore some of the questions they have regarding medications and pending surgery. We set it up as "a time trial", and see how she does over the weekend with tube feedings, they would want her to have a SNF stay if that is what it took, what ever would be of support for her to return to her previous level of functioning, though recognizing that she has been declining. Results - Lab Results Lab results reviewed: Yes Fish Bones: 06/12/23 04:59 06/16/23 14:15 Lab and Imaging Results: Lab Results x24hrs 06/16/23 06/15/23 06/15/23 Range/Units 07:56 20:27 16:43 POC Whole Bld Glucose 165 H 337 H 261 H (70 - 100) mg/dL 06/15/23 Range/Units 11:32 POC Whole Bld Glucose 252 H (70 - 100) mg/dL Impression and Recommendations - Palliative Care Impression: This is a 77-year-old woman who continues to do poorly, lethargic, taking 2 sips and bites of food and fluids, with known diabetes type 2, newly on insulin, abnormal labs, treated for a UTI, and acute on chronic renal insufficiency. Family goals are to provide aggressive interventions, with goal to improve patient's nutrition, and underlying status, to "give her a chance". Palliative care meeting with and daughter, establish rapport goals of care. Recommendations/Counseling Done: 1. Failure to thrive. Patient has been taking just sips and bites of food and fluid, presents with altered mental status, CHF, known severe aortic stenosis, but actually acute functional and cognitive decline over the last 1 to 2 weeks. Counseling provided regarding benefits and burdens of nutritional support, they do want to pursue this, to give her best chance possible. After discussion, they will accept a NG tube. Counseling provided regarding putting this in the context of a time trial" to see if she does improve, and response in the context of causing more harm than good, or providing support for improvement. and daughter are pleased with moving forward on intervention, feel like they are being heard in the context of their goals 2. CHF. It does appear from provider notes, patient has had recent cardiac workup, with identified CHF, aortic stenosis, multiple test recently with pending last 1 for workup for TAVR. Patient has been quite symptomatic at home, with fluid retention. Reviewed information with hospitalist, she will obtain cardiology records. 3. Advance care planning. Did address CODE STATUS with her , at this point she remains a full code, this is in alignment with his Christianity johny, believes in life at all costs. Introduction of palliative care service, with goal to support patient and family, elicit goals of care, and help with coordination of care with hospitalist team. They would consider placement in [facility] if that would help her regain function, of hope would be that patient will regain decision-making capacity, and be able to further participate in goals of care conversations. Family's perception is she does not have dementia, and was having cognitive testing for evaluation for her TAVR. 90 minutes with review of chart, records, coordination of care with hospitalist. Family conference with Corine ZHENG with palliative care, Irma daughter, and Abdulaziz her . Counseling provided regarding advance care planning, eliciting goals, the context of CODE STATUS, and time trial regarding feeding. Plan is for palliative care to provide ongoing support through hospitalization at decision points, as well as illicit outpatient referral
--- NOTE | 2023-06-16 18:36 | PROVIDER PROGRESS NOTE ---
Assessment/Plan - Problem List (1) AMS (altered mental status) Assessment/Plan: Mental status changes at admission were most likely multifactorial and secondary to a UTI, hyponatremia and significant uremia with a BUN of 121. She got antibx, and both the Na and BUN/creat have improved considerably. Despite those improvements, since 06/14/23, the patient has become more obtunded, sleeping most of day, not opening her eyes, only drinking liquids, and is less communicative STAT head CT was done and it showed no bleeding, no acute findings Initial plan was to order PT and OT but she is so somnolent every day that she cannot work with them Appreciate Palliative Care consult done today who addressed her FTT and her code status and end of life decisions. The palliative care EDGING MACHINE OPERATOR found that the family is not sure why she is so withdrawn, refusing food and liquids. They want to give her 1 more chance to awaken and interact and feed herself, by first providing nutrition per NG tube. Plan: As per wishes from daughter and , we will try to give her "one last fighting chance" with a trial of NG feeds, temporarily, for 3-4 days, then after NG tube out will see if she continues to eat and drink on her own (2) FTT She has been mostly asleep, only drinking liquids from her meal trays, she has been also less communicative My impression was that she is probably reaching end-of-life. Plan: As per wishes from daughter and , we will try to give her "one last fighting chance" with a trial of NG feeds, temporarily, for 3-4 days, then after NG tube out will see if she continues to eat and drink on her own (3) Tachycardia She became tachycardic with heart rate greater than 100. Partly this is likely from dehydration due to poor oral intake Her med list has been reconciled and she has not been getting her heart rate- slowing meds, which have now been resumed. Plan: Trial of NG hydration (4) Aortic stenosis, severe The daughter shared details with the palliative care provider today that the patient is actively being worked up to have a TAVR. This was not communicated at admission or to me since my shift started on 06/14/23. Plan: I will ask for records regarding this Dx and her W/U thus far (5) Hypernatremia All labs were reviewed. She came in with Hyponatremia, got iv fluids and Na was correcting. Then Na became excessive at 146. Today Na is 145. Since she is not eating and not drinking much, I resumed iv fluids using 0.45 NS Plan: Follow BMP daily now that we will start ng feeds (6) Prerenal azotemia All labs were reviewed. She developed prerenal BUN/creat ratio of 56/1.0. Today is 37/0.8. Plan: As in #1 (7) DM type 2 The reconciled med list shows that the patient was on metformin and insulin at home. She is also on Decadron 4 mg daily at home which was continued here. I see no indication for her to be on Decadron. The Decadron has raised her glucose level as high as 400s while here Plan: Continue with hypoglycemia protocol, fingerstick checks, sliding scale insulin coverage I decreased her Decadron from 4 mg daily to 2 mg daily, she will require a slow taper down to off (8) CHF Chest x-ray revealed cephalization of vessels and patient has some lower extremity edema. She has not been hypoxic, not needing any supplemental O2 Due to concern for heart failure, an Echocardiogram was ordered to evaluate LV and RV function and to evaluate for valvular heart disease. The Echo showed preserved LVEF and (9) Urinary tract infection TREATED U/A was abn and she had AMS at admission She received one dose of fosfomycin (10) Acute on chronic renal insufficiency Assessment/Plan: RESOLVED Patient creatinine In May 2023 was 1.4. At admission, her creatinine was 3.3. She reported decreased oral intake over the last several weeks. Creatinine and uremia have significantly improved since admission. IV fluids were stopped Plan: Follow BMP daily (11) Hypomagnesia Plan: Continue to monitor and replace as needed. - Current Meds Current Meds: Current Medications Generic Name Dose Route Start Last Admin Trade Name Freq PRN Reason Stop Dose Admin Cholecalciferol 50 mcg 06/15/23 09:00 06/16/23 08:11 Cholecalciferol 25 Mcg Tablet PO 50 mcg DAILY SEN Administration Dexamethasone 2 mg 06/15/23 09:00 06/16/23 08:10 Dexamethasone 4 Mg Tablet PO 2 mg DAILY SEN Administration Heparin Sodium (Porcine) 5,000 unit 06/11/23 21:00 06/16/23 08:18 Heparin 5,000 Unit/Ml Vial SUBQ 5,000 unit BID SEN Administration Sodium Chloride 1,000 mls @ 50 mls/hr 06/14/23 17:00 06/16/23 10:30 Normal Saline 0.45% IV 50 mls/hr .Q20H SEN Administration Insulin Human Lispro 2 - 10 unit 06/15/23 21:00 06/16/23 17:26 Insulin Lispro 300 Unit/3 Ml Pen SUBQ 10 unit 0800,1200,1700,2100 SEN Administration Protocol Magnesium Oxide 400 mg 06/11/23 16:00 06/16/23 08:12 Magnesium Oxide 400 Mg Tablet PO 400 mg DAILYWM SEN Administration Metoprolol Succinate 37.5 mg 06/14/23 21:00 06/16/23 08:10 Metoprolol Succinate 25 Mg Tablet PO 37.5 mg BID SEN Administration Multi-Ingredient Ointment 1 applic 06/12/23 00:37 06/15/23 21:10 Zinc Oxide 20% Oint 30 Gm Tube TOP 1 applic PRN PRN Administration Skin Care Multivitamins 1 tab 06/16/23 08:00 06/16/23 08:12 Multivitamin Tablet PO 1 tab DAILYWM SEN Administration Polyethylene Glycol 17 gm 06/13/23 09:00 06/16/23 08:08 Polyethylene Glycol 3350 17 Gm Packet PO 17 gm DAILY SEN Administration Sodium Chloride 10 ml 06/11/23 15:21 06/12/23 08:28 Sodium Chloride Flush 0.9% 10 Ml Syringe IVP 10 ml PRN PRN Administration NEEDED PER PROVIDER ORDERS Sodium Chloride 10 ml 06/11/23 17:00 06/16/23 17:21 Sodium Chloride Flush 0.9% 10 Ml Syringe IVP 10 ml 0100,0900,1700 SEN Administration Timolol Maleate 1 drops 06/13/23 21:00 06/16/23 09:39 Timolol 0.5% Ophth Drops RIGHTEYE 1 drops BID SEN Administration - Lab Result Fish Bone Diagrams: 06/22/23 04:35 06/22/23 04:35 - Additional Planning My Orders: My Active Orders 06/15/23 21:00 Insulin Lispro [Humalog Kwikpen U-100] 2 - 10 unit SUBQ 0800,1200,1700,2100 06/16/23 08:00 Multivitamin [Theragran] 1 tab PO DAILYWM 06/16/23 12:11 Nutrition Consult [CONS] Routine 06/16/23 13:58 Daily Weight [RC] DAILY IO [RC] QSHIFT Tube Feeding [RC] QSHIFT 06/16/23 15:11 Miscellaenous Nursing Order [RC] QSHIFT 06/16/23 21:00 Insulin Glargine-Yfgn [Semglee] 5 unit SUBQ BID 06/17/23 05:00 COMPREHENSIVE METABOLIC PANEL [CHEM] Timed MAGNESIUM [CHEM] Timed PHOSPHORUS [CHEM] Timed PREALBUMIN [CHEM] Timed 06/19/23 05:00 MAGNESIUM [CHEM] Timed PHOSPHORUS [CHEM] Timed PREALBUMIN [CHEM] Timed 06/22/23 05:00 COMPREHENSIVE METABOLIC PANEL [CHEM] Timed MAGNESIUM [CHEM] Timed PHOSPHORUS [CHEM] Timed PREALBUMIN [CHEM] Timed Subjective - Subjective Patient Reports: Other (Asleep. Mumbles an answer when spoken to, with eyes closed.) Nursing Reports: Other (Pushes away food, sleeps all day.) Objective Vital Signs: Vital Signs - 24 hr 06/16/23 06/16/23 06/16/23 01:40 07:55 16:00 Temperature 36.7 C 36.7 C 37.2 C Heart Rate [ 101 H Apical] Heart Rate [ 99 113 H Brachial] Respiratory 16 16 16 Rate Blood Pressure 156/79 H 150/70 H 134/52 H [Right Brachial artery] O2 Saturation 98 97 95 Oxygen O2 Source Room air I&O (Last 24 Hrs): Intake and Output Totals x24h 06/14/23 06/15/23 06/16/23 23:59 23:59 23:59 Intake Total 840 2077 2244 Output Total 2215 900 900 Balance -1375 1177 1344 General: Other (Lethargic, mumbles answers with eyes closed, moves all extrem spontaneously) HEENT: Mucous membr. moist/pink Neck: No JVD Neuro: Non Focal, Other (Lethargic and has generalized weakness) Cardiovascular: Other (Syst murmur) Respiratory: No respiratory distress, Breath sounds nml Abdomen: Soft, No tenderness Extremities: No clubbing, No edema, No tenderness/swelling - Results Results: Laboratory Results WBC 12.7 x10^3/uL (4.8-10.8) H 06/12/23 04:59 RBC 3.94 10^6/uL (4.20-5.40) L 06/12/23 04:59 Hgb 11.4 g/dL (12.0-16.0) L 06/12/23 04:59 Hct 33.7 % (37.0-47.0) L 06/12/23 04:59 MCV 85.5 fL (81.0-99.0) 06/12/23 04:59 MCH 28.9 pg (27.0-31.0) 06/12/23 04:59 MCHC 33.8 g/dL (32.0-36.0) 06/12/23 04:59 RDW 14.9 % (12.0-15.0) 06/12/23 04:59 Plt Count 153 10^3/uL (130-450) 06/12/23 04:59 MPV 10.9 fL (7.9-10.8) H 06/12/23 04:59 Neut # (Auto) 10.0 10^3/uL (1.5-6.6) H 06/12/23 04:59 Lymph # (Auto) 1.7 10^3/uL (1.5-3.5) 06/12/23 04:59 [place] # (Auto) 0.7 10^3/uL (0.0-1.0) 06/12/23 04:59 Eos # (Auto) 0.0 10^3/uL (0.0-0.7) 06/12/23 04:59 Baso # (Auto) 0.0 10^3/uL (0.0-0.1) 06/12/23 04:59 Absolute Nucleated RBC 0.07 x10^3/uL 06/12/23 04:59 Nucleated RBC % 0.6 /100WBC 06/12/23 04:59 Manual Slide Review Indicated 06/11/23 12:15 WBC Morphology NORMAL APPEARANCE (NORMAL) 06/11/23 12:15 Platelet Estimate (NORMAL) 06/11/23 12:15 Platelet Morphology PLATELET CLUMPING (NORMAL) 06/11/23 12:15 RBC Morph Micro Appear NORMAL APPEARANCE (NORMAL) 06/11/23 12:15 Sodium 145 mmol/L (135-145) 06/16/23 14:15 Potassium 4.5 mmol/L (3.5-4.5) 06/16/23 14:15 Chloride 111 mmol/L (101-111) 06/16/23 14:15 Carbon Dioxide 27 mmol/L (21-32) 06/16/23 14:15 Anion Gap 7.0 (6-13) 06/16/23 14:15 BUN 37 mg/dL (6-20) H 06/16/23 14:15 Creatinine 0.8 mg/dL (0.6-1.3) 06/16/23 14:15 Estimated GFR (MDRD) 84 (>89) L 06/16/23 14:15 Glucose 355 mg/dL (74-104) H 06/16/23 14:15 POC Whole Bld Glucose 371 mg/dL (70 - 100) H 06/16/23 16:34 Lactic Acid 2.3 mmol/L (0.5-2.2) H 06/11/23 11:03 Calcium 8.6 mg/dL (8.5-10.3) 06/16/23 14:15 Phosphorus 1.2 mg/dL (2.5-5.0) L 06/14/23 05:05 Magnesium 1.6 mg/dL (1.7-2.3) L 06/14/23 05:05 Total Bilirubin 0.4 mg/dL (0.2-1.0) 06/16/23 14:15 AST 24 IU/L (10-42) 06/16/23 14:15 ALT 29 IU/L (10-60) 06/16/23 14:15 Alkaline Phosphatase 72 IU/L (42-121) 06/16/23 14:15 Troponin I High Sens 107.4 ng/L (2.3-14.8) H* 06/12/23 00:00 Total Protein 4.9 g/dL (6.4-8.9) L 06/16/23 14:15 Albumin 2.7 g/dL (3.2-5.5) L 06/16/23 14:15 Globulin 2.2 g/dL (2.1-4.2) 06/16/23 14:15 Albumin/Globulin Ratio 1.2 (1.0-2.2) 06/16/23 14:15 Lipase 103 U/L (11-82) H 06/11/23 11:03 TSH 0.40 uIU/mL (0.34-5.60) 06/11/23 11:03 Urine Color YELLOW 06/11/23 13:59 Urine Clarity SL. CLOUDY (CLEAR) 06/11/23 13:59 Urine pH 6.0 PH (5.0-7.5) 06/11/23 13:59 Ur Specific [place] 1.010 (1.002-1.030) 06/11/23 13:59 Urine Protein NEGATIVE mg/dL (NEGATIVE) 06/11/23 13:59 Urine Glucose (UA) NEGATIVE mg/dL (NEGATIVE) 06/11/23 13:59 Urine Ketones NEGATIVE mg/dL (NEGATIVE) 06/11/23 13:59 Urine Occult Blood TRACE-LYSE (NEGATIVE) 06/11/23 13:59 Urine Nitrite NEGATIVE (NEGATIVE) 06/11/23 13:59 Urine Bilirubin NEGATIVE (NEGATIVE) 06/11/23 13:59 Urine Urobilinogen 0.2 (NORMAL) E.U./dL (NORMAL) 06/11/23 13:59 Ur Leukocyte Esterase MODERATE (NEGATIVE) H 06/11/23 13:59 Urine RBC 6-10 /HPF (0-5) H 06/11/23 13:59 Urine WBC 6-10 /HPF (0-5) H 06/11/23 13:59 Ur Squamous Epith Cells MANY Squamous (<= Few) H 06/11/23 13:59 Urine Bacteria Rare /HPF (None Seen) 06/11/23 13:59 Urine Yeast PRESENT 06/11/23 13:59 Ur Microscopic Review INDICATED 06/11/23 13:59 Urine Culture Comments NOT INDICATED 06/11/23 13:59 Nasal Adenovirus (PCR) NOT DETECTED 06/11/23 11:03 Nasal B. parapertussis DNA (PCR) NOT DETECTED 06/11/23 11:03 Nasal Coronavir 229E PCR NOT DETECTED 06/11/23 11:03 Nasal Coronavir HKU1 PCR NOT DETECTED 06/11/23 11:03 Nasal Coronavir NL63 PCR NOT DETECTED 06/11/23 11:03 Nasal Coronavir OC43 PCR NOT DETECTED 06/11/23 11:03 Nasal Enterovir/Rhinovir PCR NOT DETECTED 06/11/23 11:03 Nasal Influenza B PCR NOT DETECTED 06/11/23 11:03 Nasal Influenza A PCR NOT DETECTED 06/11/23 11:03 Nasal Parainfluen 1 PCR NOT DETECTED 06/11/23 11:03 Nasal Parainfluen 2 PCR NOT DETECTED 06/11/23 11:03 Nasal Parainfluen 3 PCR NOT DETECTED 06/11/23 11:03 Nasal Parainfluen 4 PCR NOT DETECTED 06/11/23 11:03 Nasal RSV (PCR) NOT DETECTED 06/11/23 11:03 Nasal B.pertussis DNA PCR NOT DETECTED 06/11/23 11:03 Nasal C.pneumoniae (PCR) NOT DETECTED 06/11/23 11:03 [place] Human Metapneumo PCR NOT DETECTED 06/11/23 11:03 Nasal M.pneumoniae (PCR) NOT DETECTED 06/11/23 11:03 Nasal SARS-CoV-2 (PCR) NOT DETECTED 06/11/23 11:03
[2023-06-16] MEDS ORDERED: SODIUM CHLORIDE 0.45% 1,000 ML IV SCH (19:00)
[2023-06-16] MEDS: INSULIN GLARGINE-YFGN 300 UNIT/3 ML PEN SUBQ SCH (21:29)
[2023-06-16] MEDS: METOPROLOL SUCCINATE 25 MG TABLET PO SCH (21:30)
[2023-06-17 06:12] LABS: ALBUMIN 2.7 g/dL (3.2-5.5); ALBUMIN/GLOBULIN RATIO 1.4 (1.0-2.2); ALKALINE PHOSPHATASE 73 IU/L (42-121); ALT ALANINE AMINOTRANSFERASE 29 IU/L (10-60); AST ASPARTATE AMINOTRANSFERASE 18 IU/L (10-42); BILIRUBIN,TOTAL 0.5 mg/dL (0.2-1.0); BUN - BLOOD UREA NITROGEN 35 mg/dL (6-20); CALCIUM 8.6 mg/dL (8.5-10.3); CARBON DIOXIDE - CO2 26 mmol/L (21-32); CHLORIDE 111 mmol/L (101-111); CREATININE 0.8 mg/dL (0.6-1.3); GFR - MDRD 84 (>89); GLUCOSE 323 mg/dL (74-104); MAGNESIUM 1.2 mg/dL (1.7-2.3); POTASSIUM 4.4 mmol/L (3.5-4.5); PREALBUMIN 26 mg/dL (17-34); SODIUM 143 mmol/L (135-145); TOTAL PROTEIN 4.7 g/dL (6.4-8.9)
[2023-06-17 06:16] LABS: PHOSPHORUS < 1.0 mg/dL (2.5-5.0)
--- NOTE | 2023-06-17 08:36 | PROVIDER PROGRESS NOTE ---
Assessment/Plan - Problem List (1) AMS (altered mental status) Assessment/Plan: Mental status changes at admission were most likely multifactorial and secondary to a UTI, hyponatremia and significant uremia with a BUN of 121. She got antibx, and both the Na and BUN/creat have improved considerably. Despite those improvements, since 06/14/23, the patient has become more obtunded, sleeping most of day, not opening her eyes, only drinking liquids, and is less communicative STAT head CT was done and it showed no bleeding, no acute findings Initial plan was to order PT and OT but she is so somnolent every day that she cannot work with them Appreciate Palliative Care consult done today who addressed her FTT and her code status and end of life decisions. The palliative care BOOKIE found that the family is not sure why she is so withdrawn, refusing food and liquids. They want to give her 1 more chance to awaken and interact and feed herself, by first providing nutrition per NG tube. Plan: Cont present plan with several days of ng feeds, and appreciate Palliative Care help (2) FTT She has been mostly asleep, only drinking liquids from her meal trays, she has been also less communicative My impression was that she is probably reaching end-of-life. Plan: As per wishes from daughter and , we will try to give her "one last fighting chance" with a trial of NG feeds, temporarily, for 3-4 days, then after NG tube out will see if she continues to eat and drink on her own I will also start her on po hs Remeron (3) Tachycardia She became tachycardic with heart rate greater than 100. Partly this is likely from dehydration due to poor oral intake Her med list has been reconciled and she has not been getting her heart rate- slowing meds, which have now been resumed. Plan: Trial of NG hydration continues (4) Aortic stenosis, severe The daughter shared details with the palliative care provider during that consult, that the patient is actively being worked up to have a TAVR. This was not communicated at admission or to me since my shift started on 06/14/23. Plan: I will ask for records regarding this Dx and her W/U thus far (5) Prerenal azotemia All labs were reviewed. Today she has a normal creat but has prerenal BUN/creat ratio of Plan: As in #2 Follow BMP daily (6) DM type 2 The reconciled med list shows that the patient was on metformin and insulin at h ome. She is also on Decadron 4 mg daily at home which was continued here. I see no indication for her to be on Decadron. The Decadron has raised her glucose level as high as 400s while here. Glucose now running 371 I decreased her Decadron from 4 mg daily to 2 mg daily, she will require a slow taper down to off Plan: I will increase the Semglee from 5 units twice daily to 10 units twice daily Continue with fingerstick checks, hypoglycemia protocol, sliding scale insulin coverage (7) CHF Chest x-ray revealed cephalization of vessels and patient has some lower extremi ty edema. She has not been hypoxic, not needing any supplemental O2 Due to concern for heart failure, an Echocardiogram was ordered to evaluate LV and RV function and to evaluate for valvular heart disease. The Echo showed preserved LVEF and (8) Hypomagnesia Plan: Continue to monitor and replace as needed. Will give magnesium rider Follow mag daily (9) Urinary tract infection TREATED U/A was abn and she had AMS at admission She received one dose of fosfomycin (10) Acute on chronic renal insufficiency Assessment/Plan: RESOLVED Patient creatinine In May 2023 was 1.4. At admission, her creatinine was 3.3. She reported decreased oral intake over the last several weeks. Creatinine and uremia have significantly improved since admission. IV fluids were stopped Plan: Follow BMP daily (11) Hypophosphatemia Plan: Will give sodium phosphate IV Follow phosphate level daily - Current Meds Current Meds: Current Medications Generic Name Dose Route Start Last Admin Trade Name Freq PRN Reason Stop Dose Admin Cholecalciferol 50 mcg 06/15/23 09:00 06/17/23 08:10 Cholecalciferol 25 Mcg Tablet PO 50 mcg DAILY SEN Administration Dexamethasone 2 mg 06/15/23 09:00 06/17/23 08:11 Dexamethasone 4 Mg Tablet PO 2 mg DAILY SEN Administration Heparin Sodium (Porcine) 5,000 unit 06/11/23 21:00 06/17/23 08:14 Heparin 5,000 Unit/Ml Vial SUBQ 5,000 unit BID SEN Administration Insulin Glargine-yfgn 5 unit 06/16/23 21:00 06/17/23 08:13 Insulin Glargine-Yfgn 300 Unit/3 Ml Pen SUBQ 5 unit BID SEN Administration Insulin Human Lispro 2 - 10 unit 06/15/23 21:00 06/17/23 08:13 Insulin Lispro 300 Unit/3 Ml Pen SUBQ 8 unit 0800,1200,1700,2100 SEN Administration Protocol Magnesium Oxide 400 mg 06/11/23 16:00 06/17/23 08:11 Magnesium Oxide 400 Mg Tablet PO 400 mg DAILYWM SEN Administration Metoprolol Succinate 50 mg 06/16/23 21:00 06/17/23 08:11 Metoprolol Succinate 25 Mg Tablet PO 50 mg BID SEN Administration Multi-Ingredient Ointment 1 applic 06/12/23 00:37 06/15/23 21:10 Zinc Oxide 20% Oint 30 Gm Tube TOP 1 applic PRN PRN Administration Skin Care Multivitamins 1 tab 06/16/23 08:00 06/17/23 08:10 Multivitamin Tablet PO 1 tab DAILYWM SEN Administration Polyethylene Glycol 17 gm 06/13/23 09:00 06/16/23 08:08 Polyethylene Glycol 3350 17 Gm Packet PO 17 gm DAILY SEN Administration Sodium Chloride 10 ml 06/11/23 15:21 06/12/23 08:28 Sodium Chloride Flush 0.9% 10 Ml Syringe IVP 10 ml PRN PRN Administration NEEDED PER PROVIDER ORDERS Sodium Chloride 10 ml 06/11/23 17:00 06/17/23 00:41 Sodium Chloride Flush 0.9% 10 Ml Syringe IVP 10 ml 0100,0900,1700 SEN Administration Timolol Maleate 1 drops 06/13/23 21:00 06/17/23 08:12 Timolol 0.5% Ophth Drops RIGHTEYE 1 drops BID SEN Administration - Lab Result Fish Bone Diagrams: 06/22/23 04:35 06/22/23 04:35 - Additional Planning My Orders: My Active Orders 06/16/23 08:00 Multivitamin [Theragran] 1 tab PO DAILYWM 06/16/23 12:11 Nutrition Consult [CONS] Routine 06/16/23 13:58 Daily Weight [RC] DAILY IO [RC] QSHIFT Tube Feeding [RC] QSHIFT 06/16/23 15:11 Miscellaenous Nursing Order [RC] QSHIFT 06/16/23 19:00 Sodium Chloride 0.45% [Normal Saline 0.45%] 1,000 ml IV TKO 06/16/23 21:00 Insulin Glargine-Yfgn [Semglee] 5 unit SUBQ BID Metoprolol Succinate [Toprol Xl] 50 mg PO BID 06/17/23 08:33 SODIUM PHOSPHATE 21 MMOL in NS 0.9% @ 64.25 MLS/HR(X1) Sodium Phosphate 21 mmol Sodium Chloride 0.9% [Normal Saline 0.9%] 250 ml IV ONCE 06/17/23 08:34 MAGNESIUM SULFATE 2 GRAMS IV X1 Magnesium Sulfate 2 Gram [Magnesium Sulfate] 2 gm in 50 ml IV ONCE 06/17/23 09:00 Insulin Glargine-Yfgn [Semglee] 10 unit SUBQ BID 06/19/23 05:00 MAGNESIUM [CHEM] Timed PHOSPHORUS [CHEM] Timed PREALBUMIN [CHEM] Timed 06/22/23 05:00 COMPREHENSIVE METABOLIC PANEL [CHEM] Timed MAGNESIUM [CHEM] Timed PHOSPHORUS [CHEM] Timed PREALBUMIN [CHEM] Timed Subjective - Subjective Patient Reports: Other (Asleep all day) Nursing Reports: Other (She awoke when arrived and she ate peaches and cottage cheese, with eyes awake and an apparent appetite) Objective Vital Signs: Vital Signs - 24 hr 06/16/23 06/17/23 16:00 00:00 Temperature 37.2 C 36.4 C L Heart Rate [ 113 H 111 H Brachial] Respiratory 16 16 Rate Blood Pressure 134/52 H 158/77 H [Right Brachial artery] O2 Saturation 95 98 Oxygen O2 Source Room air I&O (Last 24 Hrs): Intake and Output Totals x24h 06/15/23 06/16/23 06/17/23 23:59 23:59 23:59 Intake Total 2077 2244 1522 Output Total 900 1550 625 Balance 1177 694 897 General: Other (Lethargic) HEENT: Mucous membr. moist/pink Neck: Supple, No JVD Neuro: Other (Lethargic, awakens briefly, speaks in short sentences, moves all extrem spontaneously) Cardiovascular: Other (Syst murmur) Respiratory: No respiratory distress, Breath sounds nml Abdomen: Soft, No tenderness Extremities: No tenderness/swelling, Other (Trace pedal edema) - Results Results: Laboratory Results WBC 12.7 x10^3/uL (4.8-10.8) H 06/12/23 04:59 RBC 3.94 10^6/uL (4.20-5.40) L 06/12/23 04:59 Hgb 11.4 g/dL (12.0-16.0) L 06/12/23 04:59 Hct 33.7 % (37.0-47.0) L 06/12/23 04:59 MCV 85.5 fL (81.0-99.0) 06/12/23 04:59 MCH 28.9 pg (27.0-31.0) 06/12/23 04:59 MCHC 33.8 g/dL (32.0-36.0) 06/12/23 04:59 RDW 14.9 % (12.0-15.0) 06/12/23 04:59 Plt Count 153 10^3/uL (130-450) 06/12/23 04:59 MPV 10.9 fL (7.9-10.8) H 06/12/23 04:59 Neut # (Auto) 10.0 10^3/uL (1.5-6.6) H 06/12/23 04:59 Lymph # (Auto) 1.7 10^3/uL (1.5-3.5) 06/12/23 04:59 [place] # (Auto) 0.7 10^3/uL (0.0-1.0) 06/12/23 04:59 Eos # (Auto) 0.0 10^3/uL (0.0-0.7) 06/12/23 04:59 Baso # (Auto) 0.0 10^3/uL (0.0-0.1) 06/12/23 04:59 Absolute Nucleated RBC 0.07 x10^3/uL 06/12/23 04:59 Nucleated RBC % 0.6 /100WBC 06/12/23 04:59 Manual Slide Review Indicated 06/11/23 12:15 WBC Morphology NORMAL APPEARANCE (NORMAL) 06/11/23 12:15 Platelet Estimate (NORMAL) 06/11/23 12:15 Platelet Morphology PLATELET CLUMPING (NORMAL) 06/11/23 12:15 RBC Morph Micro Appear NORMAL APPEARANCE (NORMAL) 06/11/23 12:15 Sodium 143 mmol/L (135-145) 06/17/23 05:19 Potassium 4.4 mmol/L (3.5-4.5) 06/17/23 05:19 Chloride 111 mmol/L (101-111) 06/17/23 05:19 Carbon Dioxide 26 mmol/L (21-32) 06/17/23 05:19 Anion Gap 6.0 (6-13) 06/17/23 05:19 BUN 35 mg/dL (6-20) H 06/17/23 05:19 Creatinine 0.8 mg/dL (0.6-1.3) 06/17/23 05:19 Estimated GFR (MDRD) 84 (>89) L 06/17/23 05:19 Glucose 323 mg/dL (74-104) H 06/17/23 05:19 POC Whole Bld Glucose 288 mg/dL (70 - 100) H 06/17/23 07:46 Lactic Acid 2.3 mmol/L (0.5-2.2) H 06/11/23 11:03 Calcium 8.6 mg/dL (8.5-10.3) 06/17/23 05:19 Phosphorus < 1.0 mg/dL (2.5-5.0) L* 06/17/23 05:19 Magnesium 1.2 mg/dL (1.7-2.3) L 06/17/23 05:19 Total Bilirubin 0.5 mg/dL (0.2-1.0) 06/17/23 05:19 AST 18 IU/L (10-42) 06/17/23 05:19 ALT 29 IU/L (10-60) 06/17/23 05:19 Alkaline Phosphatase 73 IU/L (42-121) 06/17/23 05:19 Troponin I High Sens 107.4 ng/L (2.3-14.8) H* 06/12/23 00:00 Total Protein 4.7 g/dL (6.4-8.9) L 06/17/23 05:19 Albumin 2.7 g/dL (3.2-5.5) L 06/17/23 05:19 Globulin 2.0 g/dL (2.1-4.2) L 06/17/23 05:19 Albumin/Globulin Ratio 1.4 (1.0-2.2) 06/17/23 05:19 Prealbumin 26 mg/dL (17-34) 06/17/23 05:19 Lipase 103 U/L (11-82) H 06/11/23 11:03 TSH 0.40 uIU/mL (0.34-5.60) 06/11/23 11:03 Urine Color YELLOW 06/11/23 13:59 Urine Clarity SL. CLOUDY (CLEAR) 06/11/23 13:59 Urine pH 6.0 PH (5.0-7.5) 06/11/23 13:59 Ur Specific [place] 1.010 (1.002-1.030) 06/11/23 13:59 Urine Protein NEGATIVE mg/dL (NEGATIVE) 06/11/23 13:59 Urine Glucose (UA) NEGATIVE mg/dL (NEGATIVE) 06/11/23 13:59 Urine Ketones NEGATIVE mg/dL (NEGATIVE) 06/11/23 13:59 Urine Occult Blood TRACE-LYSE (NEGATIVE) 06/11/23 13:59 Urine Nitrite NEGATIVE (NEGATIVE) 06/11/23 13:59 Urine Bilirubin NEGATIVE (NEGATIVE) 06/11/23 13:59 Urine Urobilinogen 0.2 (NORMAL) E.U./dL (NORMAL) 06/11/23 13:59 Ur Leukocyte Esterase MODERATE (NEGATIVE) H 06/11/23 13:59 Urine RBC 6-10 /HPF (0-5) H 06/11/23 13:59 Urine WBC 6-10 /HPF (0-5) H 06/11/23 13:59 Ur Squamous Epith Cells MANY Squamous (<= Few) H 06/11/23 13:59 Urine Bacteria Rare /HPF (None Seen) 06/11/23 13:59 Urine Yeast PRESENT 06/11/23 13:59 Ur Microscopic Review INDICATED 06/11/23 13:59 Urine Culture Comments NOT INDICATED 06/11/23 13:59 Nasal Adenovirus (PCR) NOT DETECTED 06/11/23 11:03 Nasal B. parapertussis DNA (PCR) NOT DETECTED 06/11/23 11:03 Nasal Coronavir 229E PCR NOT DETECTED 06/11/23 11:03 Nasal Coronavir HKU1 PCR NOT DETECTED 06/11/23 11:03 Nasal Coronavir NL63 PCR NOT DETECTED 06/11/23 11:03 Nasal Coronavir OC43 PCR NOT DETECTED 06/11/23 11:03 Nasal Enterovir/Rhinovir PCR NOT DETECTED 06/11/23 11:03 Nasal Influenza B PCR NOT DETECTED 06/11/23 11:03 Nasal Influenza A PCR NOT DETECTED 06/11/23 11:03 Nasal Parainfluen 1 PCR NOT DETECTED 06/11/23 11:03 Nasal Parainfluen 2 PCR NOT DETECTED 06/11/23 11:03 Nasal Parainfluen 3 PCR NOT DETECTED 06/11/23 11:03 Nasal Parainfluen 4 PCR NOT DETECTED 06/11/23 11:03 Nasal RSV (PCR) NOT DETECTED 06/11/23 11:03 Nasal B.pertussis DNA PCR NOT DETECTED 06/11/23 11:03 Nasal C.pneumoniae (PCR) NOT DETECTED 06/11/23 11:03 Sesar Human Metapneumo PCR NOT DETECTED 06/11/23 11:03 Nasal M.pneumoniae (PCR) NOT DETECTED 06/11/23 11:03 Nasal SARS-CoV-2 (PCR) NOT DETECTED 06/11/23 11:03
[2023-06-17] MEDS ORDERED: INSULIN GLARGINE-YFGN 300 UNIT/3 ML PEN SUBQ SCH (09:00)
[2023-06-17] MEDS ORDERED: SODIUM CHLORIDE 0.9% 250 ML IV ONE (12:05)
[2023-06-17] MEDS: MAGNESIUM SULFATE 2 GRAM 2 GM/50 ML BAG IV ONE (12:12)
[2023-06-17] MEDS: INSULIN GLARGINE-YFGN 300 UNIT/3 ML PEN SUBQ ONE (12:14)
[2023-06-17] MEDS: SODIUM PHOSPHATE 21 MMOL in SODIUM CHLORIDE 0.9% 250 ML IV ONE (12:23)
--- NOTE | 2023-06-17 17:04 | CONSULTATION NOTE ---
Palliative Care Follow Up - Referral Referring Provider: Dr. Campa Time of Visit: 09:30 AM- 10:30 AM Referral setting: Hospitalized patient Referral Reason: Palliative Goals of Care/ Nutritional support - Information Sources Records reviewed: RN notes reviewed (previous records) History/Review of Systems obtained from: Patient, Family ( Abdulaziz, Daughter Irma) Exam limitations: Clinical condition (Clinical condition) - History of Present Illness Update Brief HPI Update: This is a pleasant 77-year-old woman seen in patient for palliative care follow- up. Since last visit patient with improvement status post placement and NG tube and tube feeding. She is more alert and answering questions appropriately however is still very weak. She is cooperative and participates during assessment. Unfortunately her appetite has not returned quite yet and only takes sips of fluids. She tolerates tube feed, urine is clear yellow, and denies pain or GI upset. Lab values significant for hyperglycemia, hypomagnesemia, and hypophosphatemia. Inpatient physician correcting. In addition starting Remeron at hour of sleep to stimulate appetite. Her is by her bedside, and her daughter was unable to attend today's meeting as she is working. 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 Support System: Living at [place] with her . Prior to health decline patient independent, eating meals in the dining room, interactive with other residents, participates in quaker activities, and drove a car. In addition, her r eports she liked cooking. Medications/Allergies - Medications Active Medication List: Active Medications Cholecalciferol (Cholecalciferol 25 Mcg Tablet) 50 mcg PO DAILY [facility] Last Admin: 06/17/23 08:10 Dose: 50 mcg Dexamethasone (Dexamethasone 4 Mg Tablet) 2 mg PO DAILY [facility] Last Admin: 06/17/23 08:11 Dose: 2 mg Heparin Sodium (Porcine) (Heparin 5,000 Unit/Ml Vial) 5,000 unit SUBQ BID [facility] Last Admin: 06/17/23 08:14 Dose: 5,000 unit Sodium Chloride (Normal Saline 0.45%) 1,000 mls @ 0 mls/hr IV .Q0M [facility] Insulin Glargine-yfgn (Insulin Glargine-Yfgn 300 Unit/3 Ml Pen) 10 unit SUBQ BID [facility] Insulin Human Lispro (Insulin Lispro 300 Unit/3 Ml Pen) 2 - 10 unit SUBQ 0800,1200,1700,2100 [facility]; Protocol Last Admin: 06/17/23 12:13 Dose: 10 unit Magnesium Oxide (Magnesium Oxide 400 Mg Tablet) 400 mg PO DAILYWM [facility] Last Admin: 06/17/23 08:11 Dose: 400 mg Metoprolol Tartrate (Metoprolol Tartrate 50 Mg Tablet) 50 mg PO BID [facility] Mirtazapine (Mirtazapine 15 Mg Tablet) 15 mg PO QPM [facility] Multi-Ingredient Ointment (Zinc Oxide 20% Oint 30 Gm Tube) 1 applic TOP PRN PRN PRN Reason: Skin Care Last Admin: 06/15/23 21:10 Dose: 1 applic Multivitamins/Folic Acid/Vitamin C (Multivitamin W/Iron, Minerals 15 Ml) 15 ml PO DAILY [facility] Ondansetron HCl (Ondansetron 4 Mg/2 Ml Vial) 4 mg IVP Q6HR PRN PRN Reason: Nausea / Vomiting Polyethylene Glycol (Polyethylene Glycol 3350 17 Gm Packet) 17 gm PO DAILY [facility] Last Admin: 06/17/23 08:30 Dose: 17 gm Sodium Chloride (Sodium Chloride Flush 0.9% 10 Ml Syringe) 10 ml IVP PRN PRN PRN Reason: NEEDED PER PROVIDER ORDERS Last Admin: 06/12/23 08:28 Dose: 10 ml Sodium Chloride (Sodium Chloride Flush 0.9% 10 Ml Syringe) 10 ml IVP 0100, 0900,1700 [facility] Last Admin: 06/17/23 12:15 Dose: 10 ml Timolol Maleate (Timolol 0.5% Ophth Drops) 1 drops RIGHTEYE BID [facility] Last Admin: 06/17/23 08:12 Dose: 1 drops Atorvastatin [Lipitor] 20 mg PO HS 12/01/22 Lidocaine Patch 5% [Lidoderm Patch] 1 each TOP DAILY 12/01/22 Losartan Potassium 25 mg PO DAILY 12/01/22 Metoprolol Tartrate [Lopressor] 25 mg PO DAILY 12/01/22 Naloxone HCl [Narcan] 4 mg NS ONCE PRN 12/01/22 Timolol 0.5% Ophth Drops [Timoptic 0.5% Ophth Drops] 1 drops OPTH BID 12/01/22 Amitriptyline [Elavil] 10 mg PO HS 06/11/23 Docusate Sodium [Dulcolax Stool Softener] 100 mg PO DAILY 06/11/23 Furosemide [Lasix] 40 mg PO DAILY 06/11/23 hydroCHLOROthiazide [Hydrodiuril] 25 mg PO DAILY 06/11/23 metFORMIN [Glucophage] 500 mg PO DAILY 06/11/23 Estrogens, Conjugated [Premarin] 0.625 mg PO DAILY 06/14/23 Glipizide [Glipizide ER] 5 mg PO DAILY 06/14/23 Insulin Glargine [Lantus Solostar] 10 units SUBQ HS 06/14/23 allopurinoL [Allopurinol] 300 mg PO DAILY 06/14/23 - Allergies Allergies/Adverse Reactions: Allergies Allergy/AdvReac Type Severity Reaction Status Date / Time codeine AdvReac Unknown Verified 06/01/23 20:42 lisinopril AdvReac Unknown Verified 06/01/23 20:42 methocarbamol [From Robaxin] AdvReac Unknown Verified 06/01/23 20:42 nicotine [From Nicoderm CQ] AdvReac Unknown Verified 06/11/23 10:51 Review of Systems - Constitutional Constitutional: reports: Fatigue, Poor appetite, Weight loss - Cardiovascular Cardiovascular: reports: Other (significant fatigue with furosemide) - Gastrointestinal Gastrointestinal: reports: Poor appetite - Genitourinary Genitourinary: reports: Incontinence - Musculoskeletal Musculoskeletal: reports: Muscle weakness, Assistive devices (was ambulatory with walker) - Neurological Neurological: reports: General weakness - Endocrine Endocrine: reports: Diabetes type 2 Physical Exam - Vital Signs Vital Signs: Vital Signs x48h Temp Pulse Resp Pulse Ox 06/17/23 08:00 37.0 C 102 H 16 100 - Physical Exam General Appearance: positive: Lethargic (answers questions opening eyes occassionally) Eyes Bilateral: positive: Other (meets gaze briefly) ENT: positive: Dry mucous membranes Neck: positive: No JVD, Trachea midline Cardiovascular: positive: Tachycardia, Other (murmur) Respiratory: positive: No respiratory distress, Diminished in bases Abdomen: positive: Non-tender, Soft, Nml bowel sounds Skin: positive: Dryness, Other (CVP in neck) Extremities: positive: Pedal edema (trace bilateral) Neurologic/Psychiatric: positive: Disoriented to time, Weakness, Flat affect, Other (oriented to person, place; unsure what brought her to the hospital) Palliative Care - POLST Patient has POLST: No POLST Status: Full Code Performance Status: Patient's previous level of functioning independently ambulates with walker living in assisted living facility. Used a wheelchair for longer distances. She managed most of her ADLs with minimal assistance. Occasionally drove a car. Currently she is bedbound, with tube feeding, requires assistance feeding, unable to position herself in bed. - Palliative Care Discussion: Palliative care discussion with the patient's regarding patient's improvement overnight with nutritional assistance. Again revisited difficult decision regarding advanced care planning. The patient's hopes she improves daily and starts eating on her own. He understands the tube feed is for trial basis and will be stopped on Tuesday. Expectations is for the patient to have better cognition, strength, and start eating solid foods on her own. Explored her 's understanding if the feeding tube is removed and the patient declines. He is worried that she will not be able to come home with him to [place] and is terrified of being apart from her. He said it will be very difficult if she is in a retirement facility. He is having a hard time living apart from her now and relies on his quaker kwadwo and daughter for support. Reassured him palliative care will remain supportive through the patient's journey in either direction. Introduced hospice care and the option for the patient to return to the [facility] with him, he was relieved to hear they could be together. Again discussed DNR and full code. He again states would like the patient to remain full code as he has great johny in [place]. Spoke with his daughter Irma by phone and relayed today's visit and conversation with her father. She will be going out of town over the weekend however will contact palliative care for follow-up in the next visit. - Other Findings/Comments Additional Discussion: Impression: This is a 77-year-old woman who has improved overnight with nutritional assistance via NG tube and tube feed. She has improvement in cognition however still lacks appetite. Her is at bedside and states the patient is a full code with the goals to continue nutritional assistance and hope for the best at the end of the time trial. Palliative care continued to establish patient rapport, provided anticipated guidance and review goals of care. Results - Lab Results Fish Bones: 06/12/23 04:59 06/17/23 05:19 Lab and Imaging Results: Lab Results x24hrs 06/17/23 06/17/23 06/17/23 Range/Units 11:40 07:46 05:19 Sodium 143 (135-145) mmol/L Potassium 4.4 (3.5-4.5) mmol/L Chloride 111 (101-111) mmol/L Carbon Dioxide 26 (21-32) mmol/L Anion Gap 6.0 (6-13) BUN 35 H (6-20) mg/dL Creatinine 0.8 (0.6-1.3) mg/dL Estimated GFR (MDRD) 84 L (>89) Glucose 323 H (74-104) mg/dL POC Whole Bld Glucose 369 H 288 H (70 - 100) mg/dL Calcium 8.6 (8.5-10.3) mg/dL Phosphorus < 1.0 L* (2.5-5.0) mg/dL Magnesium 1.2 L (1.7-2.3) mg/dL Total Bilirubin 0.5 (0.2-1.0) mg/dL AST 18 (10-42) IU/L ALT 29 (10-60) IU/L Alkaline Phosphatase 73 (42-121) IU/L Total Protein 4.7 L (6.4-8.9) g/dL Albumin 2.7 L (3.2-5.5) g/dL Globulin 2.0 L (2.1-4.2) g/dL Albumin/Globulin Ratio 1.4 (1.0-2.2) Prealbumin 26 (17-34) mg/dL 06/16/23 06/16/23 Range/Units 20:31 16:34 Sodium (135-145) mmol/L Potassium (3.5-4.5) mmol/L Chloride (101-111) mmol/L Carbon Dioxide (21-32) mmol/L Anion Gap (6-13) BUN (6-20) mg/dL Creatinine (0.6-1.3) mg/dL Estimated GFR (MDRD) (>89) Glucose (74-104) mg/dL POC Whole Bld Glucose 280 H 371 H (70 - 100) mg/dL Calcium (8.5-10.3) mg/dL Phosphorus (2.5-5.0) mg/dL Magnesium (1.7-2.3) mg/dL Total Bilirubin (0.2-1.0) mg/dL AST (10-42) IU/L ALT (10-60) IU/L Alkaline Phosphatase (42-121) IU/L Total Protein (6.4-8.9) g/dL Albumin (3.2-5.5) g/dL Globulin (2.1-4.2) g/dL Albumin/Globulin Ratio (1.0-2.2) Prealbumin (17-34) mg/dL Impression and Recommendations Recommendations/Counseling Done: 1. Failure to thrive. Patient continues with nutritional support via tube feed. Taking little sips of water. Has improvement from last night. Counseling provided we will continue with tube feed on a timed trial basis and reevaluate Tuesday. 2. Advance care planning had difficult decision with patient's again addressing CODE STATUS. Introduced hospice as possible transition of care in the event patient does not rebound after time trial.
[2023-06-17] MEDS ORDERED: BENZOCAINE/MENTHOL LOZENGE MM PRN (18:36)
[2023-06-17] MEDS: MIRTAZAPINE 15 MG TABLET PO SCH (20:44)
[2023-06-17] MEDS: INSULIN GLARGINE-YFGN 300 UNIT/3 ML PEN SUBQ SCH (20:46)
[2023-06-17] MEDS: INSULIN LISPRO 300 UNIT/3 ML PEN SUBQ SCH (20:47)
[2023-06-17] MEDS: METOPROLOL TARTRATE 50 MG TABLET PO SCH (20:48)
--- NOTE | 2023-06-18 08:04 | PROVIDER PROGRESS NOTE ---
Assessment/Plan - Problem List (1) AMS (altered mental status) Assessment/Plan: Mental status changes at admission were most likely multifactorial and secondary to a UTI, hyponatremia and significant uremia with a BUN of 121. She got antibx, and both the Na and BUN/creat have improved considerably. Despite those improvements, since 06/14/23, the patient has become more obtunded, sleeping most of day, not opening her eyes, only drinking liquids, and is less communicative. A head CT was done and it showed no bleeding, no acute findings Initial plan was to order PT and OT but she was so somnolent every day, that she cannot work with them Appreciate Palliative Care consult who addressed her FTT and her code status and end of life decisions. The palliative care [employer] found that the family is not sure why she is so withdrawn, refusing food and liquids. They want to give her 1 more chance to awaken and interact and feed herself, by first providing nutrition per NG tube. Plan: Cont present plan with several days of ng feeds, and appreciate Palliative Care help (2) FTT She has been mostly asleep, only drinking liquids from her meal trays, refusing po diet, she has been also less communicative. My impression was that she is probably reaching end-of-life. Palliative Care consult with and daughter established that they want her to receive ng nutrition, which was started 2 days ago. She did start to eat around her ng tube (peaches, cottage cheese w/ an appetite yesterday). I started her on po hs Remeron last night Plan Will continue ng feeds several more days before ng tube is DCd (3) Tachycardia Partly this is likely from dehydration due to poor oral intake. She is tachy at 100-110 continuously Plan: Will increase Metoprolol from 50 BID to 75 BID Will give iv Cardizem 10mg iv push Cont to monitor and adjust meds Cont oral hydration (4) Prerenal azotemia All labs were reviewed. Today she has a prerenal BUN/creat ratio of 37/0.7 Plan: As in #2 Follow BMP daily (5) Aortic stenosis, severe The daughter shared details with the palliative care provider during that consult, that the patient is actively being worked up to have a TAVR. This was not communicated at admission or to me since my shift started on 06/14/23. We got her cardiac cath report from 1 month ago, that she has normal coronary arteries. (6) DM type 2 The reconciled med list shows that the patient was on metformin and insulin at home. She was also on Decadron 4 mg daily at home. I see no indication for her to be on Decadron. The Decadron has raised her glucose level as high as 400s while here. I decreased her Decadron from 4 mg daily to 2 mg daily, she will require a slow taper down to off Plan: Continue with hypoglycemia protocol, fingerstick checks, sliding scale insulin coverage Continue the increased Semglee from 5 units twice daily to 10 units twice daily, while she is getting ng feeds Continue with fingerstick checks, hypoglycemia protocol, sliding scale insulin coverage (7) CHF Chest x-ray revealed cephalization of vessels and patient has some lower extremity edema. She has not been hypoxic, not needing any supplemental O2 Due to concern for heart failure, an Echocardiogram was ordered to evaluate LV and RV function and to evaluate for valvular heart disease. The Echo showed preserved LVEF and (8) Urinary tract infection TREATED U/A was abn and she had AMS at admission She received one dose of fosfomycin (9) Acute on chronic renal insufficiency Assessment/Plan: RESOLVED Patient creatinine In May 2023 was 1.4. At admission, her creatinine was 3.3. She reported decreased oral intake over the last several weeks. Creatinine and uremia have significantly improved since admission. IV fluids were stopped Plan: Follow BMP daily (10) Hypomagnesia Plan: Continue to monitor and replace as needed. (11) Hypophosphatemia Plan: Follow phosphate level daily and replace when needed - Current Meds Current Meds: Current Medications Generic Name Dose Route Start Last Admin Trade Name Aquilinoq PRN Reason Stop Dose Admin Cholecalciferol 50 mcg 06/15/23 09:00 06/17/23 08:10 Cholecalciferol 25 Mcg Tablet PO 50 mcg DAILY [facility] Administration Dexamethasone 2 mg 06/15/23 09:06/17/23 08:11 Dexamethasone 4 Mg Tablet PO 2 mg DAILY [facility] Administration Heparin Sodium (Porcine) 5,000 unit 06/11/23 21:00 06/17/23 20:48 Heparin 5,000 Unit/Ml Vial SUBQ 5,000 unit BID [facility] Administration Insulin Glargine-yfgn 10 unit 06/17/23 21:00 06/17/23 20:46 Insulin Glargine-Yfgn 300 Unit/3 Ml Pen SUBQ 10 unit BID [facility] Administration Insulin Human Lispro 3 - 11 unit 06/17/23 21:00 06/17/23 20:47 Insulin Lispro 300 Unit/3 Ml Pen SUBQ 11 unit 0800,1200,1700,2100 [facility] Administration Protocol Magnesium Oxide 400 mg 06/11/23 16:00 06/17/23 08:11 Magnesium Oxide 400 Mg Tablet PO 400 mg DAILYWM [facility] Administration Mirtazapine 15 mg 06/17/23 21:00 06/17/23 20:44 Mirtazapine 15 Mg Tablet PO 15 mg QPM [facility] Administration Multi-Ingredient Ointment 1 applic 06/12/23 00:37 06/17/23 19:30 Zinc Oxide 20% Oint 30 Gm Tube TOP 1 applic PRN PRN Administration Skin Care Polyethylene Glycol 17 gm 06/13/23 09:00 06/17/23 08:30 Polyethylene Glycol 3350 17 Gm Packet PO 17 gm DAILY [facility] Administration Sodium Chloride 10 ml 06/11/23 15:21 06/17/23 17:26 Sodium Chloride Flush 0.9% 10 Ml Syringe IVP 10 ml PRN PRN Administration NEEDED PER PROVIDER ORDERS Sodium Chloride 10 ml 06/11/23 17:00 06/18/23 00:07 Sodium Chloride Flush 0.9% 10 Ml Syringe IVP 10 ml 0100,0900,1700 [facility] Administration Timolol Maleate 1 drops 06/13/23 21:00 06/17/23 20:49 Timolol 0.5% Ophth Drops RIGHTEYE 1 drops BID [facility] Administration - Lab Result Fish Bone Diagrams: 06/22/23 04:35 06/22/23 04:35 - Additional Planning My Orders: My Active Orders 06/17/23 18:36 Benzocaine/Menthol [Cepacol] 1 lozenge MM Q2HR PRN 06/17/23 21:00 Insulin Glargine-Yfgn [Semglee] 10 unit SUBQ BID Insulin Lispro [Humalog Kwikpen U-100] 3 - 11 unit SUBQ 0800,1200,1700,2100 Mirtazapine [Remeron] 15 mg PO QPM 06/18/23 07:59 diltiaZEM INJ [Cardizem Inj] 10 mg IVP ONCE ONE 06/18/23 09:00 Metoprolol Tartrate [Lopressor] 75 mg PO BID Multivitamin W/Minerals Liq [Centrum] 15 ml PO DAILY 06/19/23 05:00 MAGNESIUM [CHEM] Timed PHOSPHORUS [CHEM] Timed PREALBUMIN [CHEM] Timed 06/22/23 05:00 COMPREHENSIVE METABOLIC PANEL [CHEM] Timed MAGNESIUM [CHEM] Timed PHOSPHORUS [CHEM] Timed PREALBUMIN [CHEM] Timed Subjective - Subjective Patient Reports: Other (Asleep, not bothered by ng tube taped in place) Nursing Reports: Other (Not awakening to eat, does drink from straw) Objective Vital Signs: Vital Signs - 24 hr 06/17/23 06/17/23 06/17/23 08:00 15:37 20:04 Temperature 37.0 C 36.9 C 36.6 C Heart Rate [ 111 H 108 H Apical] Heart Rate [ 102 H Brachial] Respiratory 16 16 16 Rate Blood Pressure Blood Pressure [Left Brachial artery] Blood Pressure 179/99 H 147/68 H [Right Brachial artery] O2 Saturation 100 99 98 06/17/23 06/18/23 20:48 00:09 Temperature 37.1 C Heart Rate [ Apical] Heart Rate [ 104 H Brachial] Respiratory 24 Rate Blood Pressure 122/54 L Blood Pressure 146/65 H [Left Brachial artery] Blood Pressure [Right Brachial artery] O2 Saturation 97 Oxygen O2 Source Room air I&O (Last 24 Hrs): Intake and Output Totals x24h 06/16/23 06/17/23 06/18/23 23:59 23:59 23:59 Intake Total 2244 3224 1139 Output Total 1550 1425 750 Balance 694 1799 389 General: Other (Lethargic, opens eyes briefly, answers with a short mumble, does not want food) HEENT: Mucous membr. moist/pink Neck: Supple Neuro: Non Focal, Other (Lethargic, generalized weakness) Cardiovascular: Other (Systolic murmur) Respiratory: No respiratory distress, Breath sounds nml Abdomen: Soft, No tenderness Extremities: No tenderness/swelling, Other (Trace pedal edema) - Results Results: Laboratory Results WBC 12.7 x10^3/uL (4.8-10.8) H 06/12/23 04:59 RBC 3.94 10^6/uL (4.20-5.40) L 06/12/23 04:59 Hgb 11.4 g/dL (12.0-16.0) L 06/12/23 04:59 Hct 33.7 % (37.0-47.0) L 06/12/23 04:59 MCV 85.5 fL (81.0-99.0) 06/12/23 04:59 MCH 28.9 pg (27.0-31.0) 06/12/23 04:59 MCHC 33.8 g/dL (32.0-36.0) 06/12/23 04:59 RDW 14.9 % (12.0-15.0) 06/12/23 04:59 Plt Count 153 10^3/uL (130-450) 06/12/23 04:59 MPV 10.9 fL (7.9-10.8) H 06/12/23 04:59 Neut # (Auto) 10.0 10^3/uL (1.5-6.6) H 06/12/23 04:59 Lymph # (Auto) 1.7 10^3/uL (1.5-3.5) 06/12/23 04:59 [place] # (Auto) 0.7 10^3/uL (0.0-1.0) 06/12/23 04:59 Eos # (Auto) 0.0 10^3/uL (0.0-0.7) 06/12/23 04:59 Baso # (Auto) 0.0 10^3/uL (0.0-0.1) 06/12/23 04:59 Absolute Nucleated RBC 0.07 x10^3/uL 06/12/23 04:59 Nucleated RBC % 0.6 /100WBC 06/12/23 04:59 Manual Slide Review Indicated 06/11/23 12:15 WBC Morphology NORMAL APPEARANCE (NORMAL) 06/11/23 12:15 Platelet Estimate (NORMAL) 06/11/23 12:15 Platelet Morphology PLATELET CLUMPING (NORMAL) 06/11/23 12:15 RBC Morph Micro Appear NORMAL APPEARANCE (NORMAL) 06/11/23 12:15 Sodium 143 mmol/L (135-145) 06/17/23 05:19 Potassium 4.4 mmol/L (3.5-4.5) 06/17/23 05:19 Chloride 111 mmol/L (101-111) 06/17/23 05:19 Carbon Dioxide 26 mmol/L (21-32) 06/17/23 05:19 Anion Gap 6.0 (6-13) 06/17/23 05:19 BUN 35 mg/dL (6-20) H 06/17/23 05:19 Creatinine 0.8 mg/dL (0.6-1.3) 06/17/23 05:19 Estimated GFR (MDRD) 84 (>89) L 06/17/23 05:19 Glucose 323 mg/dL (74-104) H 06/17/23 05:19 POC Whole Bld Glucose 359 mg/dL (70 - 100) H 06/18/23 07:57 Lactic Acid 2.3 mmol/L (0.5-2.2) H 06/11/23 11:03 Calcium 8.6 mg/dL (8.5-10.3) 06/17/23 05:19 Phosphorus < 1.0 mg/dL (2.5-5.0) L* 06/17/23 05:19 Magnesium 1.2 mg/dL (1.7-2.3) L 06/17/23 05:19 Total Bilirubin 0.5 mg/dL (0.2-1.0) 06/17/23 05:19 AST 18 IU/L (10-42) 06/17/23 05:19 ALT 29 IU/L (10-60) 06/17/23 05:19 Alkaline Phosphatase 73 IU/L (42-121) 06/17/23 05:19 Troponin I High Sens 107.4 ng/L (2.3-14.8) H* 06/12/23 00:00 Total Protein 4.7 g/dL (6.4-8.9) L 06/17/23 05:19 Albumin 2.7 g/dL (3.2-5.5) L 06/17/23 05:19 Globulin 2.0 g/dL (2.1-4.2) L 06/17/23 05:19 Albumin/Globulin Ratio 1.4 (1.0-2.2) 06/17/23 05:19 Prealbumin 26 mg/dL (17-34) 06/17/23 05:19 Lipase 103 U/L (11-82) H 06/11/23 11:03 TSH 0.40 uIU/mL (0.34-5.60) 06/11/23 11:03 Urine Color YELLOW 06/11/23 13:59 Urine Clarity SL. CLOUDY (CLEAR) 06/11/23 13:59 Urine pH 6.0 PH (5.0-7.5) 06/11/23 13:59 Ur Specific [place] 1.010 (1.002-1.030) 06/11/23 13:59 Urine Protein NEGATIVE mg/dL (NEGATIVE) 06/11/23 13:59 Urine Glucose (UA) NEGATIVE mg/dL (NEGATIVE) 06/11/23 13:59 Urine Ketones NEGATIVE mg/dL (NEGATIVE) 06/11/23 13:59 Urine Occult Blood TRACE-LYSE (NEGATIVE) 06/11/23 13:59 Urine Nitrite NEGATIVE (NEGATIVE) 06/11/23 13:59 Urine Bilirubin NEGATIVE (NEGATIVE) 06/11/23 13:59 Urine Urobilinogen 0.2 (NORMAL) E.U./dL (NORMAL) 06/11/23 13:59 Ur Leukocyte Esterase MODERATE (NEGATIVE) H 06/11/23 13:59 Urine RBC 6-10 /HPF (0-5) H 06/11/23 13:59 Urine WBC 6-10 /HPF (0-5) H 06/11/23 13:59 Ur Squamous Epith Cells MANY Squamous (<= Few) H 06/11/23 13:59 Urine Bacteria Rare /HPF (None Seen) 06/11/23 13:59 Urine Yeast PRESENT 06/11/23 13:59 Ur Microscopic Review INDICATED 06/11/23 13:59 Urine Culture Comments NOT INDICATED 06/11/23 13:59 Nasal Adenovirus (PCR) NOT DETECTED 06/11/23 11:03 Nasal B. parapertussis DNA (PCR) NOT DETECTED 06/11/23 11:03 Nasal Coronavir 229E PCR NOT DETECTED 06/11/23 11:03 Nasal Coronavir HKU1 PCR NOT DETECTED 06/11/23 11:03 Nasal Coronavir NL63 PCR NOT DETECTED 06/11/23 11:03 Nasal Coronavir OC43 PCR NOT DETECTED 06/11/23 11:03 Nasal Enterovir/Rhinovir PCR NOT DETECTED 06/11/23 11:03 Nasal Influenza B PCR NOT DETECTED 06/11/23 11:03 Nasal Influenza A PCR NOT DETECTED 06/11/23 11:03 Nasal Parainfluen 1 PCR NOT DETECTED 06/11/23 11:03 Nasal Parainfluen 2 PCR NOT DETECTED 06/11/23 11:03 Nasal Parainfluen 3 PCR NOT DETECTED 06/11/23 11:03 Nasal Parainfluen 4 PCR NOT DETECTED 06/11/23 11:03 Nasal RSV (PCR) NOT DETECTED 06/11/23 11:03 Nasal B.pertussis DNA PCR NOT DETECTED 06/11/23 11:03 Nasal C.pneumoniae (PCR) NOT DETECTED 06/11/23 11:03 Sesar Human Metapneumo PCR NOT DETECTED 06/11/23 11:03 Nasal M.pneumoniae (PCR) NOT DETECTED 06/11/23 11:03 Nasal SARS-CoV-2 (PCR) NOT DETECTED 06/11/23 11:03
[2023-06-18] MEDS: diltiaZEM INJ 5 MG/ML VIAL IVP ONE (08:55)
[2023-06-18] MEDS: METOPROLOL TARTRATE 50 MG TABLET PO SCH (09:07)
[2023-06-18] MEDS: MULTIVITAMIN W/IRON, MINERALS 15 ML PO SCH (09:20)
[2023-06-18 11:16] LABS: BASOPHILS % (AUTO) 0.2 %; EOSINOPHILS # (AUTO) 0.1 10^3/uL (0.0-0.7); EOSINOPHILS % (AUTO) 0.7 %; HCT - HEMATOCRIT 26.7 % (37.0-47.0); HGB - HEMOGLOBIN 8.6 g/dL (12.0-16.0); LYMPHOCYTES % (AUTO) 16.7 %; MEAN CORPUSCULAR HEMOGLOBIN 29.6 pg (27.0-31.0); MEAN CORPUSCULAR HGB CONC 32.2 g/dL (32.0-36.0); MEAN CORPUSCULAR VOLUME 91.8 fL (81.0-99.0); MEAN PLATELET VOLUME 9.5 fL (7.9-10.8); MONOCYTES # (AUTO) 0.6 10^3/uL (0.0-1.0); MONOCYTES % (AUTO) 4.7 %; NRBC ABSOLUTE COUNT (AUTO) 0.52 x10^3/uL; NUCLEATED RED BLOOD CELLS AUTO 4.4 /100WBC; PLT - PLATELET COUNT 108 10^3/uL (130-450); RED BLOOD COUNT 2.91 10^6/uL (4.20-5.40); RED CELL DISTRIBUTION WIDTH 16.2 % (12.0-15.0); WHITE BLOOD COUNT 11.9 x10^3/uL (4.8-10.8)
[2023-06-18 11:32] LABS: CALCIUM 8.9 mg/dL (8.5-10.3); CREATININE 0.7 mg/dL (0.6-1.3); POTASSIUM 4.4 mmol/L (3.5-4.5)
[2023-06-18] MEDS: INSULIN LISPRO 300 UNIT/3 ML PEN SUBQ ONE (17:25)
[2023-06-18] MEDS: INSULIN GLARGINE-YFGN 300 UNIT/3 ML PEN SUBQ SCH (22:35)
[2023-06-19 06:35] LABS: MAGNESIUM 1.2 mg/dL (1.7-2.3); PREALBUMIN 26 mg/dL (17-34)
[2023-06-19 06:40] LABS: PHOSPHORUS < 1.0 mg/dL (2.5-5.0)
[2023-06-19 09:53] LABS: CALCIUM 8.9 mg/dL (8.5-10.3); CREATININE 0.7 mg/dL (0.6-1.3); POTASSIUM 4.5 mmol/L (3.5-4.5)
[2023-06-19] MEDS: MAGNESIUM SULFATE 2 GRAM 2 GM/50 ML BAG IV ONE (09:59)
[2023-06-19] MEDS: SODIUM PHOSPHATE 21 MMOL in SODIUM CHLORIDE 0.9% 250 ML IV ONE (12:36)
--- NOTE | 2023-06-19 18:48 | PROVIDER PROGRESS NOTE ---
Assessment/Plan - Problem List (1) AMS (altered mental status) Assessment/Plan: Mental status changes at admission were most likely multifactorial and secondary to a UTI, hyponatremia and significant uremia with a BUN of 121. She got antibx, and both the Na and BUN/creat have improved considerably. Despite those improvements, since 06/14/23, the patient has become more obtunded, sleeping most of day, not opening her eyes, only drinking liquids, and is less communicative. A head CT was done and it showed no bleeding, no acute findings Initial plan was to order PT and OT but she was so somnolent every day, that she cannot work with them Appreciate Palliative Care consult who addressed her FTT and her code status and end of life decisions. The palliative care MARKETING SALES SUPERVISOR found that the family is not sure why she is so withdrawn, refusing food and liquids. They want to give her 1 more chance to awaken and interact and feed herself, by first providing nutrition per NG tube. Plan: Cont present plan with several days of ng feeds, and appreciate Palliative Care help (2) FTT She has been mostly asleep, only drinking liquids from her meal trays, refusing po diet, she has been also less communicative. My impression was that she is probably reaching end-of-life. Palliative Care consult with and daughter established that they want her to receive ng nutrition, which was started 2 days ago. She did start to eat around her ng tube (peaches, cottage cheese w/ an appetite yesterday). I started her on po hs Remeron Plan: Cont Remeron Will continue ng feeds today before ng tube is DCd probably tomorrow (3) Tachycardia Partly this is likely from dehydration due to poor oral intake. She was tachy at 100-110 continuously Yesterday I increased Metoprolol from 50 BID to 75 BID and gave Cardizem 10mg iv push x1 HR slight improved Plan: Cont to monitor and adjust meds Cont oral hydration (4) Prerenal azotemia All labs were reviewed. Today she has a worse prerenal BUN/creat ratio of 38/0.7, on ng feeds with flushes Plan: As in #2 Follow BMP daily (5) Aortic stenosis, severe The daughter shared details with the palliative care provider during that consult, that the patient is actively being worked up to have a TAVR. This was not communicated at admission or to me since my shift started on 06/14/23. We got her cardiac cath report from 1 month ago, that she has normal coronary arteries. (6) DM type 2 The reconciled med list shows that the patient was on metformin and insulin at home. She was also on Decadron 4 mg daily at home. I see no indication for her to be on Decadron. The Decadron has raised her glucose level as high as 400s while here. I decreased her Decadron from 4 mg daily to 2 mg daily, she will require a slow taper down to off Plan: Continue with hypoglycemia protocol, fingerstick checks, sliding scale insulin coverage Continue the increased Semglee from 5 units twice daily to 10 units twice daily, while she is getting ng feeds Continue with fingerstick checks, hypoglycemia protocol, sliding scale insulin coverage (7) CHF Chest x-ray revealed cephalization of vessels and patient has some lower extremity edema. She has not been hypoxic, not needing any supplemental O2 Due to concern for heart failure, an Echocardiogram was ordered to evaluate LV and RV function and to evaluate for valvular heart disease. The Echo showed preserved LVEF and (8) Urinary tract infection TREATED U/A was abn and she had AMS at admission She received one dose of fosfomycin (9) Acute on chronic renal insufficiency RESOLVED Patient creatinine In May 2023 was 1.4. At admission, her creatinine was 3.3. She reported decreased oral intake over the last several weeks. Creatinine and uremia have significantly improved since admission. IV fluids were stopped Plan: Follow BMP daily (10) Hypomagnesia Plan: Continue to monitor and replace as needed. (11) Hypophosphatemia Plan: Follow phosphate level daily and replace when needed - Current Meds Current Meds: Current Medications Generic Name Dose Route Start Last Admin Trade Name Freq PRN Reason Stop Dose Admin Cholecalciferol 50 mcg 06/15/23 09:00 06/19/23 08:12 Cholecalciferol 25 Mcg Tablet PO 50 mcg DAILY SEN Administration Dexamethasone 2 mg 06/15/23 09:00 06/19/23 08:12 Dexamethasone 4 Mg Tablet PO 2 mg DAILY SEN Administration Heparin Sodium (Porcine) 5,000 unit 06/11/23 21:00 06/19/23 09:59 Heparin 5,000 Unit/Ml Vial SUBQ Not Given BID SEN Insulin Glargine-yfgn 14 unit 06/18/23 21:00 06/19/23 08:17 Insulin Glargine-Yfgn 300 Unit/3 Ml Pen SUBQ 14 unit BID SEN Administration Insulin Human Lispro 3 - 11 unit 06/17/23 21:00 06/19/23 17:22 Insulin Lispro 300 Unit/3 Ml Pen SUBQ 11 unit 0800,1200,1700,2100 SEN Administration Protocol Magnesium Oxide 400 mg 06/11/23 16:00 06/19/23 08:16 Magnesium Oxide 400 Mg Tablet PO 400 mg DAILYWM SEN Administration Metoprolol Tartrate 75 mg 06/18/23 09:00 06/19/23 08:12 Metoprolol Tartrate 50 Mg Tablet PO 75 mg BID SEN Administration Mirtazapine 15 mg 06/17/23 21:00 06/18/23 22:43 Mirtazapine 15 Mg Tablet PO 15 mg QPM SEN Administration Multi-Ingredient Ointment 1 applic 06/12/23 00:37 06/18/23 22:36 Zinc Oxide 20% Oint 30 Gm Tube TOP 1 applic PRN PRN Administration Skin Care Multivitamins/Folic Acid/Vitamin C 15 ml 06/18/23 09:00 06/19/23 08:15 Multivitamin W/Iron, Minerals 15 Ml PO 15 ml DAILY SEN Administration Polyethylene Glycol 17 gm 06/13/23 09:00 06/19/23 08:12 Polyethylene Glycol 3350 17 Gm Packet PO Not Given DAILY SEN Sodium Chloride 10 ml 06/11/23 15:21 06/19/23 17:23 Sodium Chloride Flush 0.9% 10 Ml Syringe IVP 20 ml PRN PRN Administration NEEDED PER PROVIDER ORDERS Sodium Chloride 10 ml 06/11/23 17:00 06/19/23 17:23 Sodium Chloride Flush 0.9% 10 Ml Syringe IVP 10 ml 0100,0900,1700 SEN Administration Timolol Maleate 1 drops 06/13/23 21:00 06/19/23 08:11 Timolol 0.5% Ophth Drops RIGHTEYE 1 drops BID SEN Administration - Lab Result Fish Bone Diagrams: 06/22/23 04:35 06/22/23 04:35 - Additional Planning My Orders: My Active Orders 06/18/23 21:00 Insulin Glargine-Yfgn [Semglee] 14 unit SUBQ BID 06/22/23 05:00 COMPREHENSIVE METABOLIC PANEL [CHEM] Timed MAGNESIUM [CHEM] Timed PHOSPHORUS [CHEM] Timed PREALBUMIN [CHEM] Timed Subjective - Subjective Nursing Reports: Other (Asleep all day) Objective Vital Signs: Vital Signs - 24 hr 06/18/23 06/18/23 06/18/23 22:41 22:43 23:49 Temperature 36.4 C L Heart Rate [ 105 H 94 Brachial] Respiratory 18 Rate Blood Pressure 139/54 H Blood Pressure 143/64 H [Left Brachial artery] Blood Pressure 139/54 H [Right Brachial artery] O2 Saturation 96 06/19/23 06/19/23 06/19/23 08:00 08:12 15:51 Temperature 37.1 C 36.4 C L Heart Rate [ 97 84 Brachial] Respiratory 16 18 Rate Blood Pressure 131/53 H Blood Pressure 131/53 H [Left Brachial artery] Blood Pressure 131/53 H [Right Brachial artery] O2 Saturation 100 98 Oxygen O2 Source Room air I&O (Last 24 Hrs): Intake and Output Totals x24h 06/17/23 06/18/23 06/19/23 23:59 23:59 23:59 Intake Total 3224 3330 1885 Output Total 1425 2000 1750 Balance 1799 1330 135 General: Other (Lethargic, opens eyes to voice, mumbles a 1 word answer) HEENT: Mucous membr. moist/pink, Other (ng in place) Neck: Supple Neuro: Non Focal, Other (Lethargic, generalized weakness) Cardiovascular: Other (Syst murmur) Respiratory: No respiratory distress, Breath sounds nml Abdomen: Soft, No tenderness Extremities: No tenderness/swelling, Other (Trace pedal edema) - Results Results: Laboratory Results WBC 11.9 x10^3/uL (4.8-10.8) H 06/18/23 11:13 RBC 2.91 10^6/uL (4.20-5.40) L 06/18/23 11:13 Hgb 8.6 g/dL (12.0-16.0) L 06/18/23 11:13 Hct 26.7 % (37.0-47.0) L 06/18/23 11:13 MCV 91.8 fL (81.0-99.0) 06/18/23 11:13 MCH 29.6 pg (27.0-31.0) 06/18/23 11:13 MCHC 32.2 g/dL (32.0-36.0) 06/18/23 11:13 RDW 16.2 % (12.0-15.0) H 06/18/23 11:13 Plt Count 108 10^3/uL (130-450) L 06/18/23 11:13 MPV 9.5 fL (7.9-10.8) 06/18/23 11:13 Neut # (Auto) 9.0 10^3/uL (1.5-6.6) H 06/18/23 11:13 Lymph # (Auto) 2.0 10^3/uL (1.5-3.5) 06/18/23 11:13 Davis # (Auto) 0.6 10^3/uL (0.0-1.0) 06/18/23 11:13 Eos # (Auto) 0.1 10^3/uL (0.0-0.7) 06/18/23 11:13 Baso # (Auto) 0.0 10^3/uL (0.0-0.1) 06/18/23 11:13 Absolute Nucleated RBC 0.52 x10^3/uL 06/18/23 11:13 Nucleated RBC % 4.4 /100WBC 06/18/23 11:13 Manual Slide Review Indicated 06/11/23 12:15 WBC Morphology NORMAL APPEARANCE (NORMAL) 06/11/23 12:15 Platelet Estimate (NORMAL) 06/11/23 12:15 Platelet Morphology PLATELET CLUMPING (NORMAL) 06/11/23 12:15 RBC Morph Micro Appear NORMAL APPEARANCE (NORMAL) 06/11/23 12:15 Sodium 142 mmol/L (135-145) 06/19/23 06:05 Potassium 4.5 mmol/L (3.5-4.5) 06/19/23 06:05 Chloride 111 mmol/L (101-111) 06/19/23 06:05 Carbon Dioxide 27 mmol/L (21-32) 06/19/23 06:05 Anion Gap 4.0 (6-13) L 06/19/23 06:05 BUN 38 mg/dL (6-20) H 06/19/23 06:05 Creatinine 0.7 mg/dL (0.6-1.3) 06/19/23 06:05 Estimated GFR (MDRD) 98 (>89) 06/19/23 06:05 Glucose 234 mg/dL (74-104) H 06/19/23 06:05 POC Whole Bld Glucose 334 mg/dL (70 - 100) H 06/19/23 16:52 Lactic Acid 2.3 mmol/L (0.5-2.2) H 06/11/23 11:03 Calcium 8.9 mg/dL (8.5-10.3) 06/19/23 06:05 Phosphorus < 1.0 mg/dL (2.5-5.0) L* 06/19/23 06:05 Magnesium 1.2 mg/dL (1.7-2.3) L 06/19/23 06:05 Total Bilirubin 0.5 mg/dL (0.2-1.0) 06/17/23 05:19 AST 18 IU/L (10-42) 06/17/23 05:19 ALT 29 IU/L (10-60) 06/17/23 05:19 Alkaline Phosphatase 73 IU/L (42-121) 06/17/23 05:19 Troponin I High Sens 107.4 ng/L (2.3-14.8) H* 06/12/23 00:00 Total Protein 4.7 g/dL (6.4-8.9) L 06/17/23 05:19 Albumin 2.7 g/dL (3.2-5.5) L 06/17/23 05:19 Globulin 2.0 g/dL (2.1-4.2) L 06/17/23 05:19 Albumin/Globulin Ratio 1.4 (1.0-2.2) 06/17/23 05:19 Prealbumin 26 mg/dL (17-34) 06/19/23 06:05 Lipase 103 U/L (11-82) H 06/11/23 11:03 TSH 0.40 uIU/mL (0.34-5.60) 06/11/23 11:03 Urine Color YELLOW 06/11/23 13:59 Urine Clarity SL. CLOUDY (CLEAR) 06/11/23 13:59 Urine pH 6.0 PH (5.0-7.5) 06/11/23 13:59 Ur Specific [place] 1.010 (1.002-1.030) 06/11/23 13:59 Urine Protein NEGATIVE mg/dL (NEGATIVE) 06/11/23 13:59 Urine Glucose (UA) NEGATIVE mg/dL (NEGATIVE) 06/11/23 13:59 Urine Ketones NEGATIVE mg/dL (NEGATIVE) 06/11/23 13:59 Urine Occult Blood TRACE-LYSE (NEGATIVE) 06/11/23 13:59 Urine Nitrite NEGATIVE (NEGATIVE) 06/11/23 13:59 Urine Bilirubin NEGATIVE (NEGATIVE) 06/11/23 13:59 Urine Urobilinogen 0.2 (NORMAL) E.U./dL (NORMAL) 06/11/23 13:59 Ur Leukocyte Esterase MODERATE (NEGATIVE) H 06/11/23 13:59 Urine RBC 6-10 /HPF (0-5) H 06/11/23 13:59 Urine WBC 6-10 /HPF (0-5) H 06/11/23 13:59 Ur Squamous Epith Cells MANY Squamous (<= Few) H 06/11/23 13:59 Urine Bacteria Rare /HPF (None Seen) 06/11/23 13:59 Urine Yeast PRESENT 06/11/23 13:59 Ur Microscopic Review INDICATED 06/11/23 13:59 Urine Culture Comments NOT INDICATED 06/11/23 13:59 Nasal Adenovirus (PCR) NOT DETECTED 06/11/23 11:03 Nasal B. parapertussis DNA (PCR) NOT DETECTED 06/11/23 11:03 Nasal Coronavir 229E PCR NOT DETECTED 06/11/23 11:03 Nasal Coronavir HKU1 PCR NOT DETECTED 06/11/23 11:03 Nasal Coronavir NL63 PCR NOT DETECTED 06/11/23 11:03 Nasal Coronavir OC43 PCR NOT DETECTED 06/11/23 11:03 Nasal Enterovir/Rhinovir PCR NOT DETECTED 06/11/23 11:03 Nasal Influenza B PCR NOT DETECTED 06/11/23 11:03 Nasal Influenza A PCR NOT DETECTED 06/11/23 11:03 Nasal Parainfluen 1 PCR NOT DETECTED 06/11/23 11:03 Nasal Parainfluen 2 PCR NOT DETECTED 06/11/23 11:03 Nasal Parainfluen 3 PCR NOT DETECTED 06/11/23 11:03 Nasal Parainfluen 4 PCR NOT DETECTED 06/11/23 11:03 Nasal RSV (PCR) NOT DETECTED 06/11/23 11:03 Nasal B.pertussis DNA PCR NOT DETECTED 06/11/23 11:03 Nasal C.pneumoniae (PCR) NOT DETECTED 06/11/23 11:03 Sesar Human Metapneumo PCR NOT DETECTED 06/11/23 11:03 Nasal M.pneumoniae (PCR) NOT DETECTED 06/11/23 11:03 Nasal SARS-CoV-2 (PCR) NOT DETECTED 06/11/23 11:03
--- NOTE | 2023-06-20 11:49 | CONSULTATION NOTE ---
Palliative Care Follow Up - Referral Referring Provider: Dr. Wright Time of Visit: 10:30-10:45 AM Referral setting: Hospitalized patient Referral Reason: Follow up anorexia, fialure to thrive, CHF, aortic stenosis - Information Sources History/Review of Systems obtained from: Patient, Family, Caregiver (RN and MD) - History of Present Illness Update Brief HPI Update: Patient is a please 77 year old female presenting anorexia, weakness, and failure to thrive. Over the weekend she had improved appetite however only temporary. Her cognition is improved yet she remains very weak and has difficulty keeping her eyes open during conversation. Over the weekend the patient, her , and her daughter discussed her current health status and expectation of improved appetite and will to eat. Today, spoke with the patient, her , and her daughter (by phone). Reviewed previous changes and the anticipation of continued improvement. Discussed the tube feed is providing artificial nutrients and the benefits versus the risk of prolonged suffering without improvement. The patient verbalized her tiredness and feeling "forced to eat". Her daughter understands that if the tube feed is removed and her mother declines, the option to take her mother home on Hospice is available. The patient listened to this conversation and repeated twice she does not want h ospice today. Provided the patient and her the book "Hard Choices for [place] People" and reassured them Palliative care will continue providing support and transition to Hospice when the time presents. Past Medical History: Cardiovascular: Hypertension, high cholesterol, coronary artery disease, valve disorder (assessment for TAVR in progress) Respiratory: None Neuro: Headaches Endocrineautoimmune: Type 2 diabetes (recently started on insulin) AUGER PRESS OPERATOR: None : Incontinence HEENT: Chronic vision loss Psych: 9 Musculoskeletal: Rheumatoid arthritis, fatigue Derm: None Social History - Living Situation Living arrangement: Assisted living Living Situation: With spouse/s.o. Support System: Living at [facility] with her . Prior to health decline patient independent, eating meals in the dining room, interactive with other residents, participates in advent activities, and drove a car. In addition, her reports she liked cooking. Medications/Allergies - Medications Active Medication List: Active Medications Cholecalciferol (Cholecalciferol 25 Mcg Tablet) 50 mcg PO DAILY [facility] Last Admin: 06/20/23 09:02 Dose: 50 mcg Dexamethasone (Dexamethasone 4 Mg Tablet) 2 mg PO DAILY [facility] Last Admin: 06/20/23 09:02 Dose: 2 mg Heparin Sodium (Porcine) (Heparin 5,000 Unit/Ml Vial) 5,000 unit SUBQ BID [facility] Last Admin: 06/20/23 09:03 Dose: Not Given Insulin Glargine-yfgn (Insulin Glargine-Yfgn 300 Unit/3 Ml Pen) 14 unit SUBQ BID [facility] Last Admin: 06/20/23 09:04 Dose: 14 unit Insulin Human Lispro (Insulin Lispro 300 Unit/3 Ml Pen) 3 - 11 unit SUBQ 0800,1200,1700,2100 [facility]; Protocol Last Admin: 06/20/23 09:05 Dose: 7 unit Magnesium Oxide (Magnesium Oxide 400 Mg Tablet) 400 mg PO DAILYWM [facility] Last Admin: 06/20/23 09:02 Dose: 400 mg Metoprolol Tartrate (Metoprolol Tartrate 50 Mg Tablet) 75 mg PO BID [facility] Last Admin: 06/20/23 09:02 Dose: 75 mg Mirtazapine (Mirtazapine 15 Mg Tablet) 15 mg PO QPM [facility] Last Admin: 06/19/23 22:11 Dose: 15 mg Multi-Ingredient Ointment (Zinc Oxide 20% Oint 30 Gm Tube) 1 applic TOP PRN PRN PRN Reason: Skin Care Last Admin: 06/20/23 09:01 Dose: 1 applic Multivitamins/Folic Acid/Vitamin C (Multivitamin W/Iron, Minerals 15 Ml) 15 ml PO DAILY [facility] Last Admin: 06/20/23 09:01 Dose: 15 ml Ondansetron HCl (Ondansetron 4 Mg/2 Ml Vial) 4 mg IVP Q6HR PRN PRN Reason: Nausea / Vomiting Polyethylene Glycol (Polyethylene Glycol 3350 17 Gm Packet) 17 gm PO DAILY [facility] Last Admin: 06/20/23 09:04 Dose: Not Given Sodium Chloride (Sodium Chloride Flush 0.9% 10 Ml Syringe) 10 ml IVP PRN PRN PRN Reason: NEEDED PER PROVIDER ORDERS Last Admin: 06/19/23 17:23 Dose: 20 ml Sodium Chloride (Sodium Chloride Flush 0.9% 10 Ml Syringe) 10 ml IVP 0100,0900,1700 [facility] Last Admin: 06/20/23 09:07 Dose: 10 ml Throat Lozenges (Benzocaine/Menthol Lozenge) 1 lozenge MM Q2HR PRN PRN Reason: Throat pain Timolol Maleate (Timolol 0.5% Ophth Drops) 1 drops RIGHTEYE BID SEN Last Admin: 06/20/23 09:01 Dose: 1 drops Atorvastatin [Lipitor] 20 mg PO HS 12/01/22 Lidocaine Patch 5% [Lidoderm Patch] 1 each TOP DAILY 12/01/22 Losartan Potassium 25 mg PO DAILY 12/01/22 Metoprolol Tartrate [Lopressor] 25 mg PO DAILY 12/01/22 Naloxone HCl [Narcan] 4 mg NS ONCE PRN 12/01/22 Timolol 0.5% Ophth Drops [Timoptic 0.5% Ophth Drops] 1 drops OPTH BID 12/01/22 Amitriptyline [Elavil] 10 mg PO HS 06/11/23 Docusate Sodium [Dulcolax Stool Softener] 100 mg PO DAILY 06/11/23 Furosemide [Lasix] 40 mg PO DAILY 06/11/23 hydroCHLOROthiazide [Hydrodiuril] 25 mg PO DAILY 06/11/23 metFORMIN [Glucophage] 500 mg PO DAILY 06/11/23 Estrogens, Conjugated [Premarin] 0.625 mg PO DAILY 06/14/23 Glipizide [Glipizide ER] 5 mg PO DAILY 06/14/23 Insulin Glargine [Lantus Solostar] 10 units SUBQ HS 06/14/23 allopurinoL [Allopurinol] 300 mg PO DAILY 06/14/23 - Allergies Allergies/Adverse Reactions: Allergies Allergy/AdvReac Type Severity Reaction Status Date / Time codeine AdvReac Unknown Verified 06/01/23 20:42 lisinopril AdvReac Unknown Verified 06/01/23 20:42 methocarbamol [From Robaxin] AdvReac Unknown Verified 06/01/23 20:42 nicotine [From Nicoderm CQ] AdvReac Unknown Verified 06/11/23 10:51 Review of Systems - Constitutional Constitutional: reports: Fatigue, Poor appetite, Weight loss - Cardiovascular Cardiovascular: reports: Other (significant fatigue with furosemide) - Gastrointestinal Gastrointestinal: reports: Poor appetite - Genitourinary Genitourinary: reports: Incontinence - Musculoskeletal Musculoskeletal: reports: Muscle weakness, Assistive devices (was ambulatory with walker) - Neurological Neurological: reports: General weakness - Endocrine Endocrine: reports: Diabetes type 2 - All Other Systems All Other Systems: reports: Other (limited as patient unable to participate;) Physical Exam - Vital Signs Vital Signs: Vital Signs x48h Temp Pulse Resp BP Pulse Ox 06/20/23 07:27 36.6 C 85 18 143/60 H 99 - Physical Exam General Appearance: positive: Lethargic (answers questions opening eyes occassionally) Eyes Bilateral: positive: Other (meets gaze briefly) ENT: positive: Dry mucous membranes Neck: positive: No JVD, Trachea midline Cardiovascular: positive: Tachycardia, Other (murmur) Respiratory: positive: No respiratory distress, Diminished in bases Abdomen: positive: Non-tender, Soft, Nml bowel sounds Skin: positive: Dryness, Other (CVP in neck) Extremities: positive: Pedal edema (trace bilateral) Neurologic/Psychiatric: positive: Disoriented to time, Weakness, Flat affect, Other (oriented to person, place; unsure what brought her to the hospital) Results - Lab Results Fish Bones: 06/18/23 11:13 06/19/23 06:05 Lab and Imaging Results: Lab Results x24hrs 06/20/23 06/20/23 06/19/23 Range/Units 11:19 07:28 20:14 POC Whole Bld Glucose 328 H 249 H 256 H (70 - 100) mg/dL 06/19/23 Range/Units 16:52 POC Whole Bld Glucose 334 H (70 - 100) mg/dL
--- NOTE | 2023-06-20 12:21 | PROVIDER PROGRESS NOTE ---
Assessment/Plan - Problem List (1) AMS (altered mental status) Assessment/Plan: Mental status changes at admission were most likely multifactorial and secondary to a UTI, hyponatremia and significant uremia with a BUN of 121. She got antibx, and both the Na and BUN/creat have improved considerably. Despite those improvements, she was more obtunded several days ago, not opening her eyes, only drinking liquids from her meal trays, also less communicative STAT head CT was done and showed no bleeding, no acute findings She had a Palliative Care consult, re: FTT and code status and end of life decisions, but family chose to give her ng feeds trial. She has completed 4 days of the NG feeding trial and remains sleepy, and does not want her meals. Plan: Cont present plan (as in #2) and appreciate Palliative Care help (2) FTT She was refusing po diet. Palliative Care consult with and daughter established that they want her to receive ng nutrition, which was started s everal days ago. She was interested in eating peaches, cottage cheese w/ an appetite once. Otherwise she just wants liquids I started her on po hs Remeron also. Today Palliative Care came back and spoke to her and the and daughter was on the phone to discuss the next step which will be removing the NG tube today, seeing if she can eat on her own and participate in her care and physical therapy versus going home starting under Hospice care. Plan Will remove ng tube and stop ng feeds today Will make her diet minced and moist to allow more choices (3) Diarrhea. Ever since being on Jevity NG feeds, she has liquidy diarrhea Plan: Will check a C. difficile stool sample since she has been on antibiotics Keep the San in place to promote healing of her (currently superficial) sacral skin tears (4) Prerenal azotemia All labs were reviewed. Today she has a normal creat but has prerenal BUN/creat ratio of 38/0.7 Plan: As in #2 (5) DM type 2 The reconciled med list shows that the patient was on metformin and insulin at home. She was also on Decadron 4 mg daily at home which was initially continued here. I see no indication for her to be on Decadron. The Decadron has raised her glucose level as high as 400s while here Plan: Continue with hypoglycemia protocol, fingerstick checks, sliding scale insulin c overage I decreased her Decadron from 4 mg daily to 2 mg daily, she will require a slow taper down to off Cont Semglee 10 units twice daily, but as the ng feeds stop today, this will, likely go down if she refuses oral nutrition Continue with fingerstick checks, hypoglycemia protocol, sliding scale insulin coverage (6) CHF Chest x-ray revealed cephalization of vessels and patient has significant lower extremity edema. She has not been hypoxic however Due to concern for heart failure, an Echocardiogram was done that showed LVEF 70% She has not been in florid heart failure and has not required any Lasix this admission. Plan: We did careful volume monitoring when she was getting NG feeds. NG tube is coming out today. (7) Aortic stenosis, severe As per records. Pt was undergoing W/U for TAVR. We got her cardiac cath report from 1 month ago, that she has normal cor arteries. Plan: Palliative care is helping the family make decisions. If the patient continues to have no appetite, sleeps all day and transitions to Hospice, she will not be a TAVR candidate (8) Hypomagnesia Plan: Continue to monitor and replace if low (9) Hypophosphatemia Plan: Follow phosphate level and replace if low (10) Anemia Likely from hemodilution Plan: If hemoglobin drops below 7, we will transfuse (11) Urinary tract infection TREATED U/A was abn and she had AMS at admission She received one dose of fosfomycin (12) Acute on chronic renal insufficiency Assessment/Plan: RESOLVED Patient creatinine In May 2023 was 1.4. At admission, her creatinine was 3.3. She reported decreased oral intake over the last several weeks. Creatinine and uremia have significantly improved since admission. IV fluids were stopped Plan: Follow BMP daily (13) Tachycardia RESOLVED She was tachy at 100-110 continuously, likely from volume depletion Heart rate is now in the 80s after I increased her heart rate-slowing meds and she has had 4 days of aggressive NG fluid and nutrition replacement - Current Meds Current Meds: Current Medications Generic Name Dose Route Start Last Admin Trade Name Freq PRN Reason Stop Dose Admin Cholecalciferol 50 mcg 06/15/23 09:00 06/20/23 09:02 Cholecalciferol 25 Mcg Tablet PO 50 mcg DAILY SEN Administration Dexamethasone 2 mg 06/15/23 09:00 06/20/23 09:02 Dexamethasone 4 Mg Tablet PO 2 mg DAILY SEN Administration Heparin Sodium (Porcine) 5,000 unit 06/11/23 21:00 06/20/23 09:03 Heparin 5,000 Unit/Ml Vial SUBQ Not Given BID ESN Insulin Glargine-yfgn 14 unit 06/18/23 21:00 06/20/23 09:04 Insulin Glargine-Yfgn 300 Unit/3 Ml Pen SUBQ 14 unit BID SEN Administration Insulin Human Lispro 3 - 11 unit 06/17/23 21:00 06/20/23 11:56 Insulin Lispro 300 Unit/3 Ml Pen SUBQ 11 unit 0800,1200,1700,2100 SEN Administration Protocol Magnesium Oxide 400 mg 06/11/23 16:00 06/20/23 09:02 Magnesium Oxide 400 Mg Tablet PO 400 mg DAILYWM SEN Administration Metoprolol Tartrate 75 mg 06/18/23 09:00 06/20/23 09:02 Metoprolol Tartrate 50 Mg Tablet PO 75 mg BID SEN Administration Mirtazapine 15 mg 06/17/23 21:00 06/19/23 22:11 Mirtazapine 15 Mg Tablet PO 15 mg QPM SEN Administration Multi-Ingredient Ointment 1 applic 06/12/23 00:37 06/20/23 09:01 Zinc Oxide 20% Oint 30 Gm Tube TOP 1 applic PRN PRN Administration Skin Care Multivitamins/Folic Acid/Vitamin C 15 ml 06/18/23 09:00 06/20/23 09:01 Multivitamin W/Iron, Minerals 15 Ml PO 15 ml DAILY SEN Administration Polyethylene Glycol 17 gm 06/13/23 09:00 06/20/23 09:04 Polyethylene Glycol 3350 17 Gm Packet PO Not Given DAILY SEN Sodium Chloride 10 ml 06/11/23 15:21 06/19/23 17:23 Sodium Chloride Flush 0.9% 10 Ml Syringe IVP 20 ml PRN PRN Administration NEEDED PER PROVIDER ORDERS Sodium Chloride 10 ml 06/11/23 17:00 06/20/23 09:07 Sodium Chloride Flush 0.9% 10 Ml Syringe IVP 10 ml 0100,0900,1700 SEN Administration Timolol Maleate 1 drops 06/13/23 21:00 06/20/23 09:01 Timolol 0.5% Ophth Drops RIGHTEYE 1 drops BID SEN Administration - Lab Result Fish Bone Diagrams: 06/18/23 11:13 06/19/23 06:05 - Additional Planning My Orders: My Active Orders 06/20/23 Lunch Dysphagia - Minced and Moist [DIET] 06/20/23 12:19 NG Discontinuation [RC] ONCE 06/21/23 05:00 BMP - BASIC METABOLIC PANEL [CHEM] DAILYLAB CALCIUM [CHEM] DAILYLAB CBC - COMP BLD CT W/AUTO DIFF [HEME] DAILYLAB MAGNESIUM [CHEM] DAILYLAB PHOSPHORUS [CHEM] DAILYLAB 06/22/23 05:00 BMP - BASIC METABOLIC PANEL [CHEM] DAILYLAB CBC - COMP BLD CT W/AUTO DIFF [HEME] DAILYLAB 06/23/23 05:00 BMP - BASIC METABOLIC PANEL [CHEM] DAILYLAB CBC - COMP BLD CT W/AUTO DIFF [HEME] DAILYLAB Subjective - Subjective Nursing Reports: Other (Continues to mostly sleep all day, answers everything "mm-hh-m", keeps her eyes closed, does not want to any food.) Objective Vital Signs: Vital Signs - 24 hr 06/19/23 06/19/23 06/20/23 15:51 22:11 00:10 Temperature 36.4 C L 36.5 C Heart Rate [ 84 86 Brachial] Respiratory 18 18 Rate Blood Pressure 138/58 H Blood Pressure 133/61 H [Left Brachial artery] Blood Pressure 131/53 H [Right Brachial artery] O2 Saturation 98 99 06/20/23 07:27 Temperature 36.6 C Heart Rate [ 85 Brachial] Respiratory 18 Rate Blood Pressure Blood Pressure [Left Brachial artery] Blood Pressure 143/60 H [Right Brachial artery] O2 Saturation 99 Oxygen O2 Source Room air I&O (Last 24 Hrs): Intake and Output Totals x24h 06/18/23 06/19/23 06/20/23 23:59 23:59 23:59 Intake Total 3330 2457 1467 Output Total 1999 2105 500 Balance 1330 352 967 General: No acute distress, Other (Lethargic) HEENT: EOMI, Mucous membr. moist/pink Neck: Supple Neuro: Non Focal, Other (Lethargic, only answers by saying "mm-hh-m", moves all extrem spontaneouysly) Cardiovascular: Other (3/6 syst murmur) Respiratory: No respiratory distress, Breath sounds nml Abdomen: Soft, No tenderness Extremities: No clubbing, No edema, No tenderness/swelling - Results Results: Laboratory Results WBC 11.9 x10^3/uL (4.8-10.8) H 06/18/23 11:13 RBC 2.91 10^6/uL (4.20-5.40) L 06/18/23 11:13 Hgb 8.6 g/dL (12.0-16.0) L 06/18/23 11:13 Hct 26.7 % (37.0-47.0) L 06/18/23 11:13 MCV 91.8 fL (81.0-99.0) 06/18/23 11:13 MCH 29.6 pg (27.0-31.0) 06/18/23 11:13 MCHC 32.2 g/dL (32.0-36.0) 06/18/23 11:13 RDW 16.2 % (12.0-15.0) H 06/18/23 11:13 Plt Count 108 10^3/uL (130-450) L 06/18/23 11:13 MPV 9.5 fL (7.9-10.8) 06/18/23 11:13 Neut # (Auto) 9.0 10^3/uL (1.5-6.6) H 06/18/23 11:13 Lymph # (Auto) 2.0 10^3/uL (1.5-3.5) 06/18/23 11:13 [place] # (Auto) 0.6 10^3/uL (0.0-1.0) 06/18/23 11:13 Eos # (Auto) 0.1 10^3/uL (0.0-0.7) 06/18/23 11:13 Baso # (Auto) 0.0 10^3/uL (0.0-0.1) 06/18/23 11:13 Absolute Nucleated RBC 0.52 x10^3/uL 06/18/23 11:13 Nucleated RBC % 4.4 /100WBC 06/18/23 11:13 Manual Slide Review Indicated 06/11/23 12:15 WBC Morphology NORMAL APPEARANCE (NORMAL) 06/11/23 12:15 Platelet Estimate (NORMAL) 06/11/23 12:15 Platelet Morphology PLATELET CLUMPING (NORMAL) 06/11/23 12:15 RBC Morph Micro Appear NORMAL APPEARANCE (NORMAL) 06/11/23 12:15 Sodium 142 mmol/L (135-145) 06/19/23 06:05 Potassium 4.5 mmol/L (3.5-4.5) 06/19/23 06:05 Chloride 111 mmol/L (101-111) 06/19/23 06:05 Carbon Dioxide 27 mmol/L (21-32) 06/19/23 06:05 Anion Gap 4.0 (6-13) L 06/19/23 06:05 BUN 38 mg/dL (6-20) H 06/19/23 06:05 Creatinine 0.7 mg/dL (0.6-1.3) 06/19/23 06:05 Estimated GFR (MDRD) 98 (>89) 06/19/23 06:05 Glucose 234 mg/dL (74-104) H 06/19/23 06:05 POC Whole Bld Glucose 328 mg/dL (70 - 100) H 06/20/23 11:19 Lactic Acid 2.3 mmol/L (0.5-2.2) H 06/11/23 11:03 Calcium 8.9 mg/dL (8.5-10.3) 06/19/23 06:05 Phosphorus < 1.0 mg/dL (2.5-5.0) L* 06/19/23 06:05 Magnesium 1.2 mg/dL (1.7-2.3) L 06/19/23 06:05 Total Bilirubin 0.5 mg/dL (0.2-1.0) 06/17/23 05:19 AST 18 IU/L (10-42) 06/17/23 05:19 ALT 29 IU/L (10-60) 06/17/23 05:19 Alkaline Phosphatase 73 IU/L (42-121) 06/17/23 05:19 Troponin I High Sens 107.4 ng/L (2.3-14.8) H* 06/12/23 00:00 Total Protein 4.7 g/dL (6.4-8.9) L 06/17/23 05:19 Albumin 2.7 g/dL (3.2-5.5) L 06/17/23 05:19 Globulin 2.0 g/dL (2.1-4.2) L 06/17/23 05:19 Albumin/Globulin Ratio 1.4 (1.0-2.2) 06/17/23 05:19 Prealbumin 26 mg/dL (17-34) 06/19/23 06:05 Lipase 103 U/L (11-82) H 06/11/23 11:03 TSH 0.40 uIU/mL (0.34-5.60) 06/11/23 11:03 Urine Color YELLOW 06/11/23 13:59 Urine Clarity SL. CLOUDY (CLEAR) 06/11/23 13:59 Urine pH 6.0 PH (5.0-7.5) 06/11/23 13:59 Ur Specific [place] 1.010 (1.002-1.030) 06/11/23 13:59 Urine Protein NEGATIVE mg/dL (NEGATIVE) 06/11/23 13:59 Urine Glucose (UA) NEGATIVE mg/dL (NEGATIVE) 06/11/23 13:59 Urine Ketones NEGATIVE mg/dL (NEGATIVE) 06/11/23 13:59 Urine Occult Blood TRACE-LYSE (NEGATIVE) 06/11/23 13:59 Urine Nitrite NEGATIVE (NEGATIVE) 06/11/23 13:59 Urine Bilirubin NEGATIVE (NEGATIVE) 06/11/23 13:59 Urine Urobilinogen 0.2 (NORMAL) E.U./dL (NORMAL) 06/11/23 13:59 Ur Leukocyte Esterase MODERATE (NEGATIVE) H 06/11/23 13:59 Urine RBC 6-10 /HPF (0-5) H 06/11/23 13:59 Urine WBC 6-10 /HPF (0-5) H 06/11/23 13:59 Ur Squamous Epith Cells MANY Squamous (<= Few) H 06/11/23 13:59 Urine Bacteria Rare /HPF (None Seen) 06/11/23 13:59 Urine Yeast PRESENT 06/11/23 13:59 Ur Microscopic Review INDICATED 06/11/23 13:59 Urine Culture Comments NOT INDICATED 06/11/23 13:59 Nasal Adenovirus (PCR) NOT DETECTED 06/11/23 11:03 Nasal B. parapertussis DNA (PCR) NOT DETECTED 06/11/23 11:03 Nasal Coronavir 229E PCR NOT DETECTED 06/11/23 11:03 Nasal Coronavir HKU1 PCR NOT DETECTED 06/11/23 11:03 Nasal Coronavir NL63 PCR NOT DETECTED 06/11/23 11:03 Nasal Coronavir OC43 PCR NOT DETECTED 06/11/23 11:03 Nasal Enterovir/Rhinovir PCR NOT DETECTED 06/11/23 11:03 Nasal Influenza B PCR NOT DETECTED 06/11/23 11:03 Nasal Influenza A PCR NOT DETECTED 06/11/23 11:03 Nasal Parainfluen 1 PCR NOT DETECTED 06/11/23 11:03 Nasal Parainfluen 2 PCR NOT DETECTED 06/11/23 11:03 Nasal Parainfluen 3 PCR NOT DETECTED 06/11/23 11:03 Nasal Parainfluen 4 PCR NOT DETECTED 06/11/23 11:03 Nasal RSV (PCR) NOT DETECTED 06/11/23 11:03 Nasal B.pertussis DNA PCR NOT DETECTED 06/11/23 11:03 Nasal C.pneumoniae (PCR) NOT DETECTED 06/11/23 11:03 Sesar Human Metapneumo PCR NOT DETECTED 06/11/23 11:03 Nasal M.pneumoniae (PCR) NOT DETECTED 06/11/23 11:03 Nasal SARS-CoV-2 (PCR) NOT DETECTED 06/11/23 11:03
[2023-06-21 05:34] LABS: BASOPHILS % (AUTO) 0.3 %; EOSINOPHILS # (AUTO) 0.1 10^3/uL (0.0-0.7); EOSINOPHILS % (AUTO) 0.6 %; HCT - HEMATOCRIT 26.6 % (37.0-47.0); HGB - HEMOGLOBIN 8.7 g/dL (12.0-16.0); LYMPHOCYTES # (AUTO) 1.9 10^3/uL (1.5-3.5); LYMPHOCYTES % (AUTO) 17.3 %; MEAN CORPUSCULAR HEMOGLOBIN 29.8 pg (27.0-31.0); MEAN CORPUSCULAR HGB CONC 32.7 g/dL (32.0-36.0); MEAN CORPUSCULAR VOLUME 91.1 fL (81.0-99.0); MEAN PLATELET VOLUME 10.1 fL (7.9-10.8); MONOCYTES # (AUTO) 0.7 10^3/uL (0.0-1.0); MONOCYTES % (AUTO) 6.6 %; NEUTROPHILS # (AUTO) 7.9 10^3/uL (1.5-6.6); NEUTROPHILS % (AUTO) 73.1 %; NRBC ABSOLUTE COUNT (AUTO) 0.25 x10^3/uL; NUCLEATED RED BLOOD CELLS AUTO 2.3 /100WBC; PLT - PLATELET COUNT 103 10^3/uL (130-450); RED BLOOD COUNT 2.92 10^6/uL (4.20-5.40); RED CELL DISTRIBUTION WIDTH 16.9 % (12.0-15.0); WHITE BLOOD COUNT 10.8 x10^3/uL (4.8-10.8)
[2023-06-21 05:58] LABS: MAGNESIUM 1.3 mg/dL (1.7-2.3); PHOSPHORUS 2.5 mg/dL (2.5-5.0)
[2023-06-21 06:02] LABS: CALCIUM 8.7 mg/dL (8.5-10.3); CREATININE 0.6 mg/dL (0.6-1.3); POTASSIUM 4.1 mmol/L (3.5-4.5)
--- NOTE | 2023-06-21 14:46 | ADVANCE CARE PLANNING NOTE ---
Advance Care Planning - Planning Encounter Date: 06/21/23 Time: 14:44 Purpose: Establish care goals Parties in Attendance: , Patient, hospitalist, daughter Irma who is DPOA Decisional Capacity of the Patient: Patient was able to participate. Lethargic, sleepy, falls asleep easily but wakes when we speak to her directly - Diagnosis for Encounter (1) Aortic stenosis, severe Summary: Symptoms of her murmur and edema for many many years. No real diagnosis of congestive heart failure or valvular heart disease. Diagnosis came about with echo during this admission - Encounter Subjective/Patient's Story: She is a 77-year-old black female who was living in an assisted living facility with her . They are from [place] and moved to the [place] 6 months ago to be closer to their daughter Irma who is retired [employer].. He is retired [employer]. He describes his as a forceful energetic individual. Age and arthritis slowed her down, and she use to have to use a walker if she wanted to walk long distances. But she was still cleaning house, doing laundry, driving a car, and taking "care of things" 6 months ago. He does not drive. And he relied on her to get them to and fro. She had no cognitive deficits. And other than the walker, did not use any other durable medical equipment. She is followed by [facility]. About 2 months ago she had a sudden decrease in "energy". She just could not "do things". She became sleepier and sleepier. She was eating less and less. He does not describe chest pain, shortness of breath, edema. But he does feel like she was also getting more confused and not as sharp in her thought process. He and his daughter wondered if she was losing her drive. And he was getting almost angry with her because she just did not seem to care about things". But he did not describe depression, suicidal ideation. Emotional outburst. He describes more of a "fading away". He went to an emergency room June 01 and was given IV fluids, and treated as a possible UTI. She improved for about a week and then symptoms came back. She is short of breath, does not want to eat. There is no complaints of fever or chills. More confused. And again sleeping all the time. She came back to our emergency room June 11. No obvious findings of infection. She had a slightly low sodium of 127, slightly low magnesium at 1.4 and a glucose of 371. Bicarbonate normal. Her creatinine was newly elevated at 3.3 where previous 1 was 1.4. It was felt that she may have some mild congestive heart failure and an echo was done. That echo shows severe aortic stenosis. The feels that she got a little bit better while she has been here. She was not eating. So they put in a tube feeding temporarily. It really did not work. She still sleeping, does not want to work with PT because she is too weak and tired. He and his daughter feel like they should still leave it up to her about what she wants to do. She is still full code. And when I asked her if she wants surgery for her heart valve, she says that she would like to. I then went into discussion of what the risk and complications are of open heart surgery, valve repair, TAVR. She was not happy with some of the possible complications. She would like some time to think about it. From a symptom perspective, she is in no pain. She is very tired, anorectic, and has no energy to even sit up at the side of the bed. Objective/Medical Story: Elderly female with relatively rapid onset of failure to thrive over the last couple of months. In retrospect she may have had symptoms months ago that went unnoticed. Now with severe aortic stenosis resulting in anorexia, dyspnea, UTI, and altered mental status. Minimal response to IV fluids and antibiotics. Still severely fatigued. Barely able to work with physical therapy. Family is trying to decide for moving forward with surgery and full code versus taking her home to [place] with hospice. Goals of Care: She does not know yet. She knows that she wants to live, but does not want to live if she is can to be severely incapacitated from stroke, heart attack, infection, or renal failure. She is worried about all those possible risk from a TAVR repair or open heart valve repair. Plan: Currently to remain in full CODE STATUS. She would like to think about it overnight and let me know tomorrow about how she would like to proceed forward. Code Status: Attempt Resuscitation Time spent on advance care plannin minutes
--- NOTE | 2023-06-21 15:52 | PROVIDER PROGRESS NOTE ---
Subjective - Prog Note Date Prog Note Date: 06/21/23 Prog Note Time: 15:52 - Subjective Pt reports feeling: No change Subjective: tired, can't work w PT bc of that. Not wanting to eat. at the bedside and so worried about her. She denies pain, cough, sob. Sleeps while and I speak. But wakes to participate in questions. Current Medications - Current Medications Current Medications: Active Medications Cholecalciferol (Cholecalciferol 25 Mcg Tablet) 50 mcg PO DAILY [facility] Last Admin: 06/21/23 10:41 Dose: 50 mcg Dexamethasone (Dexamethasone 4 Mg Tablet) 2 mg PO DAILY [facility] Last Admin: 06/21/23 10:42 Dose: 2 mg Heparin Sodium (Porcine) (Heparin 5,000 Unit/Ml Vial) 5,000 unit SUBQ BID [facility] Last Admin: 06/21/23 10:43 Dose: Not Given Insulin Human Lispro (Insulin Lispro 300 Unit/3 Ml Pen) 3 - 11 unit SUBQ 0800,1200,1700,2100 [facility]; Protocol Last Admin: 06/21/23 12:29 Dose: Not Given Magnesium Oxide (Magnesium Oxide 400 Mg Tablet) 400 mg PO DAILYWM [facility] Last Admin: 06/21/23 10:42 Dose: 400 mg Metoprolol Tartrate (Metoprolol Tartrate 50 Mg Tablet) 75 mg PO BID [facility] Last Admin: 06/21/23 10:43 Dose: 75 mg Mirtazapine (Mirtazapine 15 Mg Tablet) 15 mg PO QPM [facility] Last Admin: 06/20/23 20:50 Dose: 15 mg Multi-Ingredient Ointment (Zinc Oxide 20% Oint 30 Gm Tube) 1 applic TOP PRN PRN PRN Reason: Skin Care Last Admin: 06/21/23 10:41 Dose: 1 applic Multivitamins/Folic Acid/Vitamin C (Multivitamin W/Iron, Minerals 15 Ml) 15 ml PO DAILY [facility] Last Admin: 06/21/23 12:30 Dose: Not Given Ondansetron HCl (Ondansetron 4 Mg/2 Ml Vial) 4 mg IVP Q6HR PRN PRN Reason: Nausea / Vomiting Polyethylene Glycol (Polyethylene Glycol 3350 17 Gm Packet) 17 gm PO DAILY [facility] Last Admin: 06/21/23 09:23 Dose: Not Given Sodium Chloride (Sodium Chloride Flush 0.9% 10 Ml Syringe) 10 ml IVP PRN PRN PRN Reason: NEEDED PER PROVIDER ORDERS Last Admin: 06/20/23 19:47 Dose: 30 ml Sodium Chloride (Sodium Chloride Flush 0.9% 10 Ml Syringe) 10 ml IVP 0100,0900,1700 [facility] Last Admin: 06/21/23 10:40 Dose: 30 ml Throat Lozenges (Benzocaine/Menthol Lozenge) 1 lozenge MM Q2HR PRN PRN Reason: Throat pain Timolol Maleate (Timolol 0.5% Ophth Drops) 1 drops RIGHTEYE BID [facility] Last Admin: 06/21/23 10:41 Dose: 1 drops Atorvastatin [Lipitor] 20 mg PO HS 12/01/22 Lidocaine Patch 5% [Lidoderm Patch] 1 each TOP DAILY 12/01/22 Losartan Potassium 25 mg PO DAILY 12/01/22 Metoprolol Tartrate [Lopressor] 25 mg PO DAILY 12/01/22 Naloxone HCl [Narcan] 4 mg NS ONCE PRN 12/01/22 Timolol 0.5% Ophth Drops [Timoptic 0.5% Ophth Drops] 1 drops OPTH BID 12/01/22 Amitriptyline [Elavil] 10 mg PO HS 06/11/23 Docusate Sodium [Dulcolax Stool Softener] 100 mg PO DAILY 06/11/23 Furosemide [Lasix] 40 mg PO DAILY 06/11/23 hydroCHLOROthiazide [Hydrodiuril] 25 mg PO DAILY 06/11/23 metFORMIN [Glucophage] 500 mg PO DAILY 06/11/23 Estrogens, Conjugated [Premarin] 0.625 mg PO DAILY 06/14/23 Glipizide [Glipizide ER] 5 mg PO DAILY 06/14/23 Insulin Glargine [Lantus Solostar] 10 units SUBQ HS 06/14/23 allopurinoL [Allopurinol] 300 mg PO DAILY 06/14/23 Objective - Vital Signs/Intake & Output Reviewed Vital Signs: Yes Vital Signs: Vital Signs x48h BP 06/21/23 10:43 140/54 H Intake & Output: Intake & Output 06/18/23 06/19/23 06/20/23 06/21/23 23:59 23:59 23:59 23:59 Intake Total 3330 2457 2504 600 Output Total 1999 2104 1949 1100 Balance 1330 352 086 -500 - Objective General Appearance: positive: No acute distress, Lethargic, Other (Short statured elderly black female, well-nourished well-developed) Eyes Bilateral: positive: PERRL ENT: positive: Pharynx nml, No signs of dehydration Neck: positive: No JVD. negative: Stiff neck Respiratory: positive: No respiratory distress, Other (Slow, shallow, unlabored respiration with diminished breath sounds at the bases). negative: Wheezes, Rales, Rhonchi Cardiovascular: positive: Regular rate & rhythm, Systolic murmur Abdomen: positive: Non-tender, No organomegaly, Nml bowel sounds, No distention Skin: positive: Warm, Dry Extremities: positive: Full ROM, Pedal edema (Is around her ankles and calves) Neurologic/Psychiatric: positive: CN's nml (2-12), Motor nml, Disoriented to place (At times), Disoriented to time (At times) - Lab Results Fish Bones: 06/21/23 05:02 06/21/23 05:02 Other Labs: Lab Results x24hrs 06/21/23 06/21/23 06/21/23 Range/Units 11:25 07:33 06:51 WBC (4.8-10.8) x10^3/uL RBC (4.20-5.40) 10^6/uL Hgb (12.0-16.0) g/dL Hct (37.0-47.0) % MCV (81.0-99.0) fL MCH (27.0-31.0) pg MCHC (32.0-36.0) g/dL RDW (12.0-15.0) % Plt Count (130-450) 10^3/uL MPV (7.9-10.8) fL Neut # (Auto) (1.5-6.6) 10^3/uL Lymph # (Auto) (1.5-3.5) 10^3/uL [place] # (Auto) (0.0-1.0) 10^3/uL Eos # (Auto) (0.0-0.7) 10^3/uL Baso # (Auto) (0.0-0.1) 10^3/uL Absolute Nucleated RBC x10^3/uL Nucleated RBC % /100WBC Sodium (135-145) mmol/L Potassium (3.5-4.5) mmol/L Chloride (101-111) mmol/L Carbon Dioxide (21-32) mmol/L Anion Gap (6-13) BUN (6-20) mg/dL Creatinine (0.6-1.3) mg/dL Estimated GFR (MDRD) (>89) Glucose (74-104) mg/dL POC Whole Bld Glucose 124 H 169 H 92 (70 - 100) mg/dL Calcium (8.5-10.3) mg/dL Phosphorus (2.5-5.0) mg/dL Magnesium (1.7-2.3) mg/dL 06/21/23 06/21/23 06/21/23 Range/Units 06:21 05:02 05:02 WBC 10.8 (4.8-10.8) x10^3/uL RBC 2.92 L (4.20-5.40) 10^6/uL Hgb 8.7 L (12.0-16.0) g/dL Hct 26.6 L (37.0-47.0) % MCV 91.1 (81.0-99.0) fL MCH 29.8 (27.0-31.0) pg MCHC 32.7 (32.0-36.0) g/dL RDW 16.9 H (12.0-15.0) % Plt Count 103 L (130-450) 10^3/uL MPV 10.1 (7.9-10.8) fL Neut # (Auto) 7.9 H (1.5-6.6) 10^3/uL Lymph # (Auto) 1.9 (1.5-3.5) 10^3/uL [place] # (Auto) 0.7 (0.0-1.0) 10^3/uL Eos # (Auto) 0.1 (0.0-0.7) 10^3/uL Baso # (Auto) 0.0 (0.0-0.1) 10^3/uL Absolute Nucleated RBC 0.25 x10^3/uL Nucleated RBC % 2.3 /100WBC Sodium 144 (135-145) mmol/L Potassium 4.1 (3.5-4.5) mmol/L Chloride 112 H (101-111) mmol/L Carbon Dioxide 26 (21-32) mmol/L Anion Gap 6.0 (6-13) BUN 36 H (6-20) mg/dL Creatinine 0.6 (0.6-1.3) mg/dL Estimated GFR (MDRD) 117 (>89) Glucose 57 L* (74-104) mg/dL POC Whole Bld Glucose 52 L* (70 - 100) mg/dL Calcium 8.7 (8.5-10.3) mg/dL Phosphorus 2.5 (2.5-5.0) mg/dL Magnesium 1.3 L (1.7-2.3) mg/dL 06/20/23 06/20/23 Range/Units 20:37 16:40 WBC (4.8-10.8) x10^3/uL RBC (4.20-5.40) 10^6/uL Hgb (12.0-16.0) g/dL Hct (37.0-47.0) % MCV (81.0-99.0) fL MCH (27.0-31.0) pg MCHC (32.0-36.0) g/dL RDW (12.0-15.0) % Plt Count (130-450) 10^3/uL MPV (7.9-10.8) fL Neut # (Auto) (1.5-6.6) 10^3/uL Lymph # (Auto) (1.5-3.5) 10^3/uL [place] # (Auto) (0.0-1.0) 10^3/uL Eos # (Auto) (0.0-0.7) 10^3/uL Baso # (Auto) (0.0-0.1) 10^3/uL Absolute Nucleated RBC x10^3/uL Nucleated RBC % /100WBC Sodium (135-145) mmol/L Potassium (3.5-4.5) mmol/L Chloride (101-111) mmol/L Carbon Dioxide (21-32) mmol/L Anion Gap (6-13) BUN (6-20) mg/dL Creatinine (0.6-1.3) mg/dL Estimated GFR (MDRD) (>89) Glucose (74-104) mg/dL POC Whole Bld Glucose 115 H 344 H (70 - 100) mg/dL Calcium (8.5-10.3) mg/dL Phosphorus (2.5-5.0) mg/dL Magnesium (1.7-2.3) mg/dL Assessment/Plan - Problem List (2) AMS (altered mental status) Impression: History is of possible valvular heart disease for months, but no confirmation and a gradual decline in functional status with a sharp decline over the last 2 months accompanied by sleepiness and altered mental status, anorexia. Findings on admission were a UTI, hyponatremia, BUN of 121. Her labs have responded to antibiotics and IV fluids. BUN has slowly come down to 36 today. In spite of that this patient is still lethargic, sleeps very easily. Palliative care consult following the patient. Still not completely and fully participating because of the lethargy. Plan: Another advance care planning conversation held with family. They really are having a hard time struggling. They did involve the patient in the conve rsation. Please see separate dictated note. Since our last active order was 2 feeds, patient is currently without acute care treatment other than expectant observation to see if she improves. (2) FTT Patient received 4 days of tube feedings, has been started on Remeron, and has been followed by palliative care. Although she is conversant, and making decisions, she is still not able to get out of bed. Cannot work with PT. Diet has been advanced and patient really does not want to eat. (3) Diarrhea. Ever since being on Jevity NG feeds, she has liquid diarrhea.C. difficile toxin ordered. However no diarrhea now. So no C. difficile submitted as of yet. (4) Prerenal azotemia Due to dehydration and probable aortic stenosis. Creatinine normal since June 13. She was admitted at 3.3 and is down to 0.6 today. BUN and creatinine ratio still elevated. (5) DM type 2 The reconciled med list shows that the patient was on metformin and insulin at home. She was also on Decadron 4 mg daily at home which was initially continued here. I see no indication for her to be on Decadron. The Decadron has raised her glucose level as high as 400s while here With tube feedings being discontinued yesterday, glucose was 57 this morning. She received some orange juice and went back up to 92. Semglee dose was 8:45 PM last night. No dose this morning. Plan: Discontinuation of Semglee. Continue sliding scale (6) CHF Chest x-ray revealed cephalization of vessels and patient has significant lower extremity edema. She has not been hypoxic however Due to concern for heart failure, an Echocardiogram was done that showed LVEF 70% She has not been in florid heart failure and has not required any Lasix this admission. Plan: Continue to monitor for any signs and symptoms of CHF or need for diuresis. (7) Aortic stenosis, severe As per records. Pt was undergoing W/U for TAVR. We got her cardiac cath report from 1 month ago, that she has normal cor arteries. Plan: Palliative care is helping the family make decisions. If the patient continues to have no appetite, sleeps all day and transitions to Hospice, she will not be a TAVR candidate. Discussed this with the family again today. Palliative care is helping him move forward with decision making. They are just having a hard time deciding if it is time to transition her to hospice, or should they take the chance and have her sent to for valve repair. (8) Hypomagnesia Plan: Continue to monitor and replace if low (9) Hypophosphatemia Plan: Follow phosphate level and replace if low (10) Anemia Likely from hemodilution Plan: If hemoglobin drops below 7, we will transfuse (11) Urinary tract infection TREATED U/A was abn and she had AMS at admission She received one dose of fosfomycin (12) Acute on chronic renal insufficiency Assessment/Plan: RESOLVED Patient creatinine In May 2023 was 1.4. At admission, her creatinine was 3.3. She reported decreased oral intake over the last several weeks. Creatinine and uremia have significantly improved since admission. IV fluids were stopped Plan: Follow BMP daily (13) Tachycardia RESOLVED She was tachy at 100-110 continuously, likely from volume depletion Heart rate is now in the 80s after I increased her heart rate-slowing meds and she has had 4 days of aggressive NG fluid and nutrition replacement
--- NOTE | 2023-06-21 17:34 | CONSULTATION NOTE ---
Palliative Care Follow Up - Referral Referring Provider: Dr. Wright Time of Visit: 9:45-10:15 Referral setting: Hospitalized patient Referral Reason: Follow up anorexia, failure to thrive, aortic stenosis - Information Sources Records reviewed: RN notes reviewed, Previous records reviewed History/Review of Systems obtained from: Patient, Family, Nursing Exam limitations: Other - History of Present Illness Update Brief HPI Update: Patient is a pleasant 77 year-old woman presenting with anorex ia, fatigue, weakness, and failure to thrive. Spoke with the patient and her daughter this morning. She was not cooperative with nursing this morning and did not eat her breakfast. Her daughter was disappointed her mother had not woken up and started the day. She provided great bedside care and had her meal reheated. The patient opened her eyes, sat up, ate breakfast her daughter brought in, and drank some coffee. The daughter wanted to get her mother out of the bed and asked if PT was started. Discussed the patient's change in activity when her daughter or are in the room. She will participate when they are there however, when they leave, stops cooperating. Again explored the goals of care with the patient and her daughter. The patient states she wants "to go home". Provided additional information on the possible care needs at home. She said [facility] can provide some caregiver assistance if her mother goes home on Hospice. Offered the services of a Hospice informational visit and her daughter agreed that would be beneficial. Spoke with case management regarding status of discharge, they are waiting for the family to make a decision on SNF or Hospice. Hospice to visit patient and her family to provide additional information and answer questions. Past Medical History: Cardiovascular: Hypertension, high cholesterol, coronary artery disease, valve disorder (assessment for TAVR in progress) Respiratory: None Neuro: Headaches Endocrineautoimmune: Type 2 diabetes (recently started on insulin) [employer]IGHWAY MAINTAIN[employer]: None : Incontinence HEENT: Chronic vision loss Psych: 9 Musculoskeletal: Rheumatoid arthritis, fatigue Derm: None Social History - Living Situation Living arrangement: Assisted living Living Situation: With spouse/s.o. Support System: Living at [facility] with her . Prior to health decline patient independent, eating meals in the dining room, interactive with other residents, participates in religion activities, and drove a car. In addition, her reports she liked cooking. Medications/Allergies - Medications Active Medication List: Active Medications Cholecalciferol (Cholecalciferol 25 Mcg Tablet) 50 mcg PO DAILY [facility] Last Admin: 06/21/23 10:41 Dose: 50 mcg Dexamethasone (Dexamethasone 4 Mg Tablet) 2 mg PO DAILY [facility] Last Admin: 06/21/23 10:42 Dose: 2 mg Heparin Sodium (Porcine) (Heparin 5,000 Unit/Ml Vial) 5,000 unit SUBQ BID [facility] Last Admin: 06/21/23 10:43 Dose: Not Given Insulin Human Lispro (Insulin Lispro 300 Unit/3 Ml Pen) 3 - 11 unit SUBQ 0800,1200,1700,2100 [facility]; Protocol Last Admin: 06/21/23 12:29 Dose: Not Given Magnesium Oxide (Magnesium Oxide 400 Mg Tablet) 400 mg PO DAILYWM [facility] Last Admin: 06/21/23 10:42 Dose: 400 mg Metoprolol Tartrate (Metoprolol Tartrate 50 Mg Tablet) 75 mg PO BID [facility] Last Admin: 06/21/23 10:43 Dose: 75 mg Mirtazapine (Mirtazapine 15 Mg Tablet) 15 mg PO QPM [facility] Last Admin: 06/20/23 20:50 Dose: 15 mg Multi-Ingredient Ointment (Zinc Oxide 20% Oint 30 Gm Tube) 1 applic TOP PRN PRN PRN Reason: Skin Care Last Admin: 06/21/23 10:41 Dose: 1 applic Multivitamins/Folic Acid/Vitamin C (Multivitamin W/Iron, Minerals 15 Ml) 15 ml PO DAILY [facility] Last Admin: 06/21/23 12:30 Dose: Not Given Ondansetron HCl (Ondansetron 4 Mg/2 Ml Vial) 4 mg IVP Q6HR PRN PRN Reason: Nausea / Vomiting Polyethylene Glycol (Polyethylene Glycol 3350 17 Gm Packet) 17 gm PO DAILY [facility] Last Admin: 06/21/23 09:23 Dose: Not Given Sodium Chloride (Sodium Chloride Flush 0.9% 10 Ml Syringe) 10 ml IVP PRN PRN PRN Reason: NEEDED PER PROVIDER ORDERS Last Admin: 06/20/23 19:47 Dose: 30 ml Sodium Chloride (Sodium Chloride Flush 0.9% 10 Ml Syringe) 10 ml IVP 0100,0900,1700 [facility] Last Admin: 06/21/23 10:40 Dose: 30 ml Throat Lozenges (Benzocaine/Menthol Lozenge) 1 lozenge MM Q2HR PRN PRN Reason: Throat pain Timolol Maleate (Timolol 0.5% Ophth Drops) 1 drops RIGHTEYE BID SEN Last Admin: 06/21/23 10:41 Dose: 1 drops Atorvastatin [Lipitor] 20 mg PO HS 12/01/22 Lidocaine Patch 5% [Lidoderm Patch] 1 each TOP DAILY 12/01/22 Losartan Potassium 25 mg PO DAILY 12/01/22 Metoprolol Tartrate [Lopressor] 25 mg PO DAILY 12/01/22 Naloxone HCl [Narcan] 4 mg NS ONCE PRN 12/01/22 Timolol 0.5% Ophth Drops [Timoptic 0.5% Ophth Drops] 1 drops OPTH BID 12/01/22 Amitriptyline [Elavil] 10 mg PO HS 06/11/23 Docusate Sodium [Dulcolax Stool Softener] 100 mg PO DAILY 06/11/23 Furosemide [Lasix] 40 mg PO DAILY 06/11/23 hydroCHLOROthiazide [Hydrodiuril] 25 mg PO DAILY 06/11/23 metFORMIN [Glucophage] 500 mg PO DAILY 06/11/23 Estrogens, Conjugated [Premarin] 0.625 mg PO DAILY 06/14/23 Glipizide [Glipizide ER] 5 mg PO DAILY 06/14/23 Insulin Glargine [Lantus Solostar] 10 units SUBQ HS 06/14/23 allopurinoL [Allopurinol] 300 mg PO DAILY 06/14/23 - Allergies Allergies/Adverse Reactions: Allergies Allergy/AdvReac Type Severity Reaction Status Date / Time codeine AdvReac Unknown Verified 06/01/23 20:42 lisinopril AdvReac Unknown Verified 06/01/23 20:42 methocarbamol [From Robaxin] AdvReac Unknown Verified 06/01/23 20:42 nicotine [From Nicoderm CQ] AdvReac Unknown Verified 06/11/23 10:51 Review of Systems - Constitutional Constitutional: reports: Fatigue, Weakness, Poor appetite - Cardiovascular Cardiovascular: reports: Other - Gastrointestinal Gastrointestinal: reports: Poor appetite - Genitourinary Genitourinary: reports: Incontinence - Musculoskeletal Musculoskeletal: reports: Muscle weakness, Assistive devices (was ambulatory with walker) - Neurological Neurological: reports: General weakness - Endocrine Endocrine: reports: Diabetes type 2 Physical Exam - Vital Signs Vital Signs: Vital Signs x48h Temp Pulse Resp BP BP Pulse Ox 06/21/23 15:57 36.6 C 85 16 130/51 L 99 06/21/23 10:43 140/54 H - Physical Exam General Appearance: positive: Lethargic (answers questions opening eyes occassionally), Other (Appears frail, answers questions appropriate) Eyes Bilateral: positive: EOMI, No scleral icterus, Other (meets gaze) ENT: positive: Dry mucous membranes Neck: positive: No JVD, Trachea midline Cardiovascular: positive: Regular rate & rhythm, Systolic murmur Respiratory: positive: No respiratory distress, Rales (Bilateral lower lobe fine rales) Abdomen: positive: Non-tender, Soft, Other (hypoactive bowel sounds) Skin: positive: Dryness, Other (CVP in neck) Extremities: positive: Pedal edema (trace bilateral) Neurologic/Psychiatric: positive: Disoriented to time, Weakness, Flat affect, Other (oriented to person, place, and situation, difficulty concentrating, speech clear) Palliative Care Pain: No pain Tiredness/Fatigue: Severe (7-10) Drowsiness/Sedation: Severe (7-10) Nausea: None Anorexia: Severe (7-10) Dyspnea: None Depression: Moderate (4-6) Anxiety: None Sleep: Sleeps well Constipation: No - Palliative Care Discussion: Palliative care discussion regarding decreased appetite, frailty, and hospice consideration. Patient has significant fatigue, is not interested in eating unless encouraged by family, and remains very weak. She exercised with her yesterday however has not participated in physical therapy. Explored the patient and daughter's understanding of the physical strength and conditioning needed to get out of bed and to participate in care needs. Her daughter feels [facility] can provide care support but is unsure up to what level. Explained the difference of hospice versus longterm facility. The patient's daughter would appreciate a hospice informational visit to discuss advance care planning and possible transfer to home. Again addressed the patient's code status. They have great johny in [employer] and would like her to remain a full code. Results - Lab Results Fish Bones: 06/21/23 05:02 06/21/23 05:02 Lab and Imaging Results: Lab Results x24hrs 06/21/23 06/21/23 06/21/23 Range/Units 11:25 07:33 06:51 WBC (4.8-10.8) x10^3/uL RBC (4.20-5.40) 10^6/uL Hgb (12.0-16.0) g/dL Hct (37.0-47.0) % MCV (81.0-99.0) fL MCH (27.0-31.0) pg MCHC (32.0-36.0) g/dL RDW (12.0-15.0) % Plt Count (130-450) 10^3/uL MPV (7.9-10.8) fL Neut # (Auto) (1.5-6.6) 10^3/uL Lymph # (Auto) (1.5-3.5) 10^3/uL [place] # (Auto) (0.0-1.0) 10^3/uL Eos # (Auto) (0.0-0.7) 10^3/uL Baso # (Auto) (0.0-0.1) 10^3/uL Absolute Nucleated RBC x10^3/uL Nucleated RBC % /100WBC Sodium (135-145) mmol/L Potassium (3.5-4.5) mmol/L Chloride (101-111) mmol/L Carbon Dioxide (21-32) mmol/L Anion Gap (6-13) BUN (6-20) mg/dL Creatinine (0.6-1.3) mg/dL Estimated GFR (MDRD) (>89) Glucose (74-104) mg/dL POC Whole Bld Glucose 124 H 169 H 92 (70 - 100) mg/dL Calcium (8.5-10.3) mg/dL Phosphorus (2.5-5.0) mg/dL Magnesium (1.7-2.3) mg/dL 06/21/23 06/21/23 06/21/23 Range/Units 06:21 05:02 05:02 WBC 10.8 (4.8-10.8) x10^3/uL RBC 2.92 L (4.20-5.40) 10^6/uL Hgb 8.7 L (12.0-16.0) g/dL Hct 26.6 L (37.0-47.0) % MCV 91.1 (81.0-99.0) fL MCH 29.8 (27.0-31.0) pg MCHC 32.7 (32.0-36.0) g/dL RDW 16.9 H (12.0-15.0) % Plt Count 103 L (130-450) 10^3/uL MPV 10.1 (7.9-10.8) fL Neut # (Auto) 7.9 H (1.5-6.6) 10^3/uL Lymph # (Auto) 1.9 (1.5-3.5) 10^3/uL [place] # (Auto) 0.7 (0.0-1.0) 10^3/uL Eos # (Auto) 0.1 (0.0-0.7) 10^3/uL Baso # (Auto) 0.0 (0.0-0.1) 10^3/uL Absolute Nucleated RBC 0.25 x10^3/uL Nucleated RBC % 2.3 /100WBC Sodium 144 (135-145) mmol/L Potassium 4.1 (3.5-4.5) mmol/L Chloride 112 H (101-111) mmol/L Carbon Dioxide 26 (21-32) mmol/L Anion Gap 6.0 (6-13) BUN 36 H (6-20) mg/dL Creatinine 0.6 (0.6-1.3) mg/dL Estimated GFR (MDRD) 117 (>89) Glucose 57 L* (74-104) mg/dL POC Whole Bld Glucose 52 L* (70 - 100) mg/dL Calcium 8.7 (8.5-10.3) mg/dL Phosphorus 2.5 (2.5-5.0) mg/dL Magnesium 1.3 L (1.7-2.3) mg/dL 06/20/23 06/20/23 Range/Units 20:37 16:40 WBC (4.8-10.8) x10^3/uL RBC (4.20-5.40) 10^6/uL Hgb (12.0-16.0) g/dL Hct (37.0-47.0) % MCV (81.0-99.0) fL MCH (27.0-31.0) pg MCHC (32.0-36.0) g/dL RDW (12.0-15.0) % Plt Count (130-450) 10^3/uL MPV (7.9-10.8) fL Neut # (Auto) (1.5-6.6) 10^3/uL Lymph # (Auto) (1.5-3.5) 10^3/uL [place] # (Auto) (0.0-1.0) 10^3/uL Eos # (Auto) (0.0-0.7) 10^3/uL Baso # (Auto) (0.0-0.1) 10^3/uL Absolute Nucleated RBC x10^3/uL Nucleated RBC % /100WBC Sodium (135-145) mmol/L Potassium (3.5-4.5) mmol/L Chloride (101-111) mmol/L Carbon Dioxide (21-32) mmol/L Anion Gap (6-13) BUN (6-20) mg/dL Creatinine (0.6-1.3) mg/dL Estimated GFR (MDRD) (>89) Glucose (74-104) mg/dL POC Whole Bld Glucose 115 H 344 H (70 - 100) mg/dL Calcium (8.5-10.3) mg/dL Phosphorus (2.5-5.0) mg/dL Magnesium (1.7-2.3) mg/dL Impression and Recommendations - Palliative Care Impression: Patient is day 1 without tube feeding, still with little appetite. When her family is close she wakes up, independently eats a small amount, and participate in some activities. She has generalized weakness and is awaiting geophysical prospecting surveyor apy visit. Hospice to provide informational visit today. Palliative care to follow patient for building rapport, goals of care discussion, and advance care planning Recommendations/Counseling Done: 1. Failure to thrive patient has anorexia and limited oral intake. Her daughter brought in breakfast that was palatable to the patient. Counseled the patient and daughter to continue eating preferred foods of choice. Patient and family with insight that failure to eat will result in continued decline of strength and lead to . 2. Aortic stenosis, severe patient with previous workup for TAVR. However, she remains very weak and does not want to eat. The patient and her family have insight that with continued deconditioning her TAVR procedure will not be poss ible. Patient making decision to transfer home and advance care planning discussion for hospice. # 3. Advance care planning-discussed the patient's continued fatigue and weakness, exploring possible transfer to home with hospice and required caregiving needs. Hospice informational visit set for today. Approximately 30 minutes reviewing EHR inpatient, previous note, coordination of care with registered nurse and hospice; provided symptom management, health education, psychosocial support, disease trajectory, anticipatory guidance, and advance care planning.
[2023-06-22 05:02] LABS: BASOPHILS % (AUTO) 0.1 %; EOSINOPHILS % (AUTO) 0.2 %; HCT - HEMATOCRIT 26.3 % (37.0-47.0); HGB - HEMOGLOBIN 8.4 g/dL (12.0-16.0); LYMPHOCYTES # (AUTO) 1.5 10^3/uL (1.5-3.5); LYMPHOCYTES % (AUTO) 17.1 %; MEAN CORPUSCULAR HEMOGLOBIN 29.1 pg (27.0-31.0); MEAN CORPUSCULAR HGB CONC 31.9 g/dL (32.0-36.0); MONOCYTES # (AUTO) 0.7 10^3/uL (0.0-1.0); NEUTROPHILS # (AUTO) 6.4 10^3/uL (1.5-6.6); NEUTROPHILS % (AUTO) 73.2 %; NRBC ABSOLUTE COUNT (AUTO) 0.09 x10^3/uL; PLT - PLATELET COUNT 105 10^3/uL (130-450); RED BLOOD COUNT 2.89 10^6/uL (4.20-5.40); RED CELL DISTRIBUTION WIDTH 16.6 % (12.0-15.0); WHITE BLOOD COUNT 8.8 x10^3/uL (4.8-10.8)
[2023-06-22 05:25] LABS: CALCIUM 8.4 mg/dL (8.5-10.3); CREATININE 0.6 mg/dL (0.6-1.3); POTASSIUM 3.8 mmol/L (3.5-4.5)
--- NOTE | 2023-06-22 21:54 | PROVIDER PROGRESS NOTE ---
Assessment/Plan - Problem List (1) AMS (altered mental status) Assessment/Plan: History is of possible valvular heart disease for months, but no confirmation and a gradual decline in functional status with a sharp decline over the last 2 months accompanied by sleepiness and altered mental status, anorexia. Findings on admission were a UTI, hyponatremia, BUN of 121. Her labs have responded to antibiotics and IV fluids. BUN has slowly come down to 36 today. In spite of that this patient is still lethargic, sleeps very easily. Palliative care consult following the patient and plan is to continue to discuss placement in group home facility versus hospice. Still not completely and fully participating because of the lethargy. Plan: Continue to discuss goals of care. (2) FTT Patient received 4 days of tube feedings, has been started on Remeron, and has been followed by palliative care. Although she is conversant, and making decisions, she is still not able to get out of bed. Frequently cannot work with PT. Diet has been advanced and patient really does not want to eat. (3) Diarrhea. Ever since being on Jevity NG feeds, she has liquid diarrhea.C. difficile toxin ordered. However no diarrhea now. So no C. difficile submitted as of yet. (4) Prerenal azotemia Due to dehydration and probable aortic stenosis. Creatinine normal since June 13. She was admitted at 3.3 and is down to 0.6 today. BUN and creatinine ratio still elevated but markedly improved. (5) DM type 2 The reconciled med list shows that the patient was on metformin and insulin at home. She was also on Decadron 4 mg daily at home which was initially continued here. I see no indication for her to be on Decadron. The Decadron has raised her glucose level as high as 400s while here With tube feedings being discontinued yesterday, glucose was 57 this morning. She received some orange juice and went back up to 92. Semglee dose was 8:45 PM last night. No dose this morning. Plan: Discontinuation of Semglee. Continue sliding scale (6) CHF Chest x-ray revealed cephalization of vessels and patient has significant lower extremity edema. She has not been hypoxic however Due to concern for heart failure, an Echocardiogram was done that showed LVEF 70% She has not been in florid heart failure and has not required any Lasix this admission. Plan: Continue to monitor for any signs and symptoms of CHF or need for diuresis. (7) Aortic stenosis, severe As per records. Pt was undergoing W/U for TAVR. We got her cardiac cath report from 1 month ago, that she has normal cor arteries. Plan: Plan is to continue to discuss goals of care with patient and family. (8) Hypomagnesia Plan: Continue to monitor and replace if low (9) Hypophosphatemia Plan: Follow phosphate level and replace if low (10) Anemia Likely from hemodilution Plan: If hemoglobin drops below 7, we will transfuse (11) Urinary tract infection TREATED U/A was abn and she had AMS at admission She received one dose of fosfomycin (12) Acute on chronic renal insufficiency Assessment/Plan: RESOLVED Patient creatinine In May 2023 was 1.4. At admission, her creatinine was 3.3. She reported decreased oral intake over the last several weeks. Creatinine and uremia have significantly improved since admission. IV fluids were stopped Plan: Follow BMP daily (13) Tachycardia RESOLVED She was tachy at 100-110 continuously, likely from volume depletion Heart rate is now in the 80s after I increased her heart rate-slowing meds and she has had 4 days of aggressive NG fluid and nutrition replacement - Current Meds Current Meds: Current Medications Generic Name Dose Route Start Last Admin Trade Name Theresa PRN Reason Stop Dose Admin Cholecalciferol 50 mcg 06/15/23 09:00 06/22/23 08:21 Cholecalciferol 25 Mcg Tablet PO 50 mcg DAILY SEN Administration Dexamethasone 2 mg 06/15/23 09:00 06/22/23 08:21 Dexamethasone 4 Mg Tablet PO 2 mg DAILY SEN Administration Heparin Sodium (Porcine) 5,000 unit 06/11/23 21:00 06/22/23 21:24 Heparin 5,000 Unit/Ml Vial SUBQ 5,000 unit BID SEN Administration Insulin Human Lispro 3 - 11 unit 06/17/23 21:00 06/22/23 21:24 Insulin Lispro 300 Unit/3 Ml Pen SUBQ 7 unit 0800,1200,1700,2100 SEN Administration Protocol Magnesium Oxide 400 mg 06/11/23 16:00 06/22/23 08:21 Magnesium Oxide 400 Mg Tablet PO 400 mg DAILYWM SEN Administration Metoprolol Tartrate 75 mg 06/18/23 09:00 06/22/23 21:22 Metoprolol Tartrate 50 Mg Tablet PO 75 mg BID SEN Administration Mirtazapine 15 mg 06/17/23 21:00 06/22/23 21:23 Mirtazapine 15 Mg Tablet PO 15 mg QPM SEN Administration Multi-Ingredient Ointment 1 applic 06/12/23 00:37 06/21/23 10:41 Zinc Oxide 20% Oint 30 Gm Tube TOP 1 applic PRN PRN Administration Skin Care Multivitamins/Folic Acid/Vitamin C 15 ml 06/18/23 09:00 06/22/23 08:23 Multivitamin W/Iron, Minerals 15 Ml PO 15 ml DAILY SEN Administration Polyethylene Glycol 17 gm 06/13/23 09:00 06/22/23 08:23 Polyethylene Glycol 3350 17 Gm Packet PO 17 gm DAILY SEN Administration Sodium Chloride 10 ml 06/11/23 15:21 06/21/23 18:27 Sodium Chloride Flush 0.9% 10 Ml Syringe IVP 10 ml PRN PRN Administration NEEDED PER PROVIDER ORDERS Sodium Chloride 10 ml 06/11/23 17:00 06/22/23 17:50 Sodium Chloride Flush 0.9% 10 Ml Syringe IVP 10 ml 0100,0900,1700 SEN Administration Timolol Maleate 1 drops 06/13/23 21:00 06/22/23 21:23 Timolol 0.5% Ophth Drops RIGHTEYE 1 drops BID SEN Administration - Lab Result Fish Bone Diagrams: 06/22/23 04:35 06/22/23 04:35 Subjective - Subjective Patient Reports: Other (Patient continues to be fatigued. Her ability to eat waxes and wanes. Her ability to participate also waxes and wanes. No new complaints today.) Objective Vital Signs: Vital Signs - 24 hr 06/22/23 06/22/23 06/22/23 00:00 08:00 13:07 Temperature 36.6 C 36.5 C Heart Rate [ 86 98 Brachial] Heart Rate [ 91 Sitting] Heart Rate [ 107 H Standing] Heart Rate [ 93 Supine] Respiratory 18 20 Rate Blood Pressure 145/61 H 136/70 H [Right Brachial artery] Blood Pressure 137/109 H [Sitting] Blood Pressure 108/74 [Standing] Blood Pressure 138/57 H [Supine] O2 Saturation 100 98 O2 Saturation [ 96 Supine] 06/22/23 06/22/23 13:10 15:47 Temperature 36.2 C L Heart Rate [ 82 Brachial] Heart Rate [ 91 Sitting] Heart Rate [ 107 H Standing] Heart Rate [ 93 Supine] Respiratory 16 Rate Blood Pressure 146/81 H [Right Brachial artery] Blood Pressure 137/109 H [Sitting] Blood Pressure 108/74 [Standing] Blood Pressure 138/57 H [Supine] O2 Saturation 99 O2 Saturation [ Supine] Oxygen O2 Source Room air I&O (Last 24 Hrs): Intake and Output Totals x24h 06/20/23 06/21/23 06/22/23 23:59 23:59 23:59 Intake Total 2504 750 540 Output Total 1950 1575 1250 Balance 746 -426 -777 General: Alert, No acute distress Neck: Supple Neuro: Alert, Non Focal Cardiovascular: Regular rate, Normal S1, Normal S2 Respiratory: No respiratory distress, Breath sounds nml Abdomen: Normal bowel sounds, No tenderness Extremities: No cyanosis, No edema Skin: No rashes - Results Results: Laboratory Results WBC 8.8 x10^3/uL (4.8-10.8) 06/22/23 04:35 RBC 2.89 10^6/uL (4.20-5.40) L 06/22/23 04:35 Hgb 8.4 g/dL (12.0-16.0) L 06/22/23 04:35 Hct 26.3 % (37.0-47.0) L 06/22/23 04:35 MCV 91.0 fL (81.0-99.0) 06/22/23 04:35 MCH 29.1 pg (27.0-31.0) 06/22/23 04:35 MCHC 31.9 g/dL (32.0-36.0) L 06/22/23 04:35 RDW 16.6 % (12.0-15.0) H 06/22/23 04:35 Plt Count 105 10^3/uL (130-450) L 06/22/23 04:35 MPV 10.0 fL (7.9-10.8) 06/22/23 04:35 Neut # (Auto) 6.4 10^3/uL (1.5-6.6) 06/22/23 04:35 Lymph # (Auto) 1.5 10^3/uL (1.5-3.5) 06/22/23 04:35 [place] # (Auto) 0.7 10^3/uL (0.0-1.0) 06/22/23 04:35 Eos # (Auto) 0.0 10^3/uL (0.0-0.7) 06/22/23 04:35 Baso # (Auto) 0.0 10^3/uL (0.0-0.1) 06/22/23 04:35 Absolute Nucleated RBC 0.09 x10^3/uL 06/22/23 04:35 Nucleated RBC % 1.0 /100WBC 06/22/23 04:35 Manual Slide Review Indicated 06/11/23 12:15 WBC Morphology NORMAL APPEARANCE (NORMAL) 06/11/23 12:15 Platelet Estimate (NORMAL) 06/11/23 12:15 Platelet Morphology PLATELET CLUMPING (NORMAL) 06/11/23 12:15 RBC Morph Micro Appear NORMAL APPEARANCE (NORMAL) 06/11/23 12:15 Sodium 143 mmol/L (135-145) 06/22/23 04:35 Potassium 3.8 mmol/L (3.5-4.5) 06/22/23 04:35 Chloride 113 mmol/L (101-111) H 06/22/23 04:35 Carbon Dioxide 25 mmol/L (21-32) 06/22/23 04:35 Anion Gap 5.0 (6-13) L 06/22/23 04:35 BUN 28 mg/dL (6-20) H 06/22/23 04:35 Creatinine 0.6 mg/dL (0.6-1.3) 06/22/23 04:35 Estimated GFR (MDRD) 117 (>89) 06/22/23 04:35 Glucose 76 mg/dL (74-104) 06/22/23 04:35 POC Whole Bld Glucose 260 mg/dL (70 - 100) H 06/22/23 20:43 Lactic Acid 2.3 mmol/L (0.5-2.2) H 06/11/23 11:03 Calcium 8.4 mg/dL (8.5-10.3) L 06/22/23 04:35 Phosphorus 2.5 mg/dL (2.5-5.0) 06/21/23 05:02 Magnesium 1.3 mg/dL (1.7-2.3) L 06/21/23 05:02 Total Bilirubin 0.5 mg/dL (0.2-1.0) 06/17/23 05:19 AST 18 IU/L (10-42) 06/17/23 05:19 ALT 29 IU/L (10-60) 06/17/23 05:19 Alkaline Phosphatase 73 IU/L (42-121) 06/17/23 05:19 Troponin I High Sens 107.4 ng/L (2.3-14.8) H* 06/12/23 00:00 Total Protein 4.7 g/dL (6.4-8.9) L 06/17/23 05:19 Albumin 2.7 g/dL (3.2-5.5) L 06/17/23 05:19 Globulin 2.0 g/dL (2.1-4.2) L 06/17/23 05:19 Albumin/Globulin Ratio 1.4 (1.0-2.2) 06/17/23 05:19 Prealbumin 26 mg/dL (17-34) 06/19/23 06:05 Lipase 103 U/L (11-82) H 06/11/23 11:03 TSH 0.40 uIU/mL (0.34-5.60) 06/11/23 11:03 Urine Color YELLOW 06/11/23 13:59 Urine Clarity SL. CLOUDY (CLEAR) 06/11/23 13:59 Urine pH 6.0 PH (5.0-7.5) 06/11/23 13:59 Ur Specific [place] 1.010 (1.002-1.030) 06/11/23 13:59 Urine Protein NEGATIVE mg/dL (NEGATIVE) 06/11/23 13:59 Urine Glucose (UA) NEGATIVE mg/dL (NEGATIVE) 06/11/23 13:59 Urine Ketones NEGATIVE mg/dL (NEGATIVE) 06/11/23 13:59 Urine Occult Blood TRACE-LYSE (NEGATIVE) 06/11/23 13:59 Urine Nitrite NEGATIVE (NEGATIVE) 06/11/23 13:59 Urine Bilirubin NEGATIVE (NEGATIVE) 06/11/23 13:59 Urine Urobilinogen 0.2 (NORMAL) E.U./dL (NORMAL) 06/11/23 13:59 Ur Leukocyte Esterase MODERATE (NEGATIVE) H 06/11/23 13:59 Urine RBC 6-10 /HPF (0-5) H 06/11/23 13:59 Urine WBC 6-10 /HPF (0-5) H 06/11/23 13:59 Ur Squamous Epith Cells MANY Squamous (<= Few) H 06/11/23 13:59 Urine Bacteria Rare /HPF (None Seen) 06/11/23 13:59 Urine Yeast PRESENT 06/11/23 13:59 Ur Microscopic Review INDICATED 06/11/23 13:59 Urine Culture Comments NOT INDICATED 06/11/23 13:59 Nasal Adenovirus (PCR) NOT DETECTED 06/11/23 11:03 Nasal B. parapertussis DNA (PCR) NOT DETECTED 06/11/23 11:03 Nasal Coronavir 229E PCR NOT DETECTED 06/11/23 11:03 Nasal Coronavir HKU1 PCR NOT DETECTED 06/11/23 11:03 Nasal Coronavir NL63 PCR NOT DETECTED 06/11/23 11:03 Nasal Coronavir OC43 PCR NOT DETECTED 06/11/23 11:03 Nasal Enterovir/Rhinovir PCR NOT DETECTED 06/11/23 11:03 Nasal Influenza B PCR NOT DETECTED 06/11/23 11:03 Nasal Influenza A PCR NOT DETECTED 06/11/23 11:03 Nasal Parainfluen 1 PCR NOT DETECTED 06/11/23 11:03 Nasal Parainfluen 2 PCR NOT DETECTED 06/11/23 11:03 Nasal Parainfluen 3 PCR NOT DETECTED 06/11/23 11:03 Nasal Parainfluen 4 PCR NOT DETECTED 06/11/23 11:03 Nasal RSV (PCR) NOT DETECTED 06/11/23 11:03 Nasal B.pertussis DNA PCR NOT DETECTED 06/11/23 11:03 Nasal C.pneumoniae (PCR) NOT DETECTED 06/11/23 11:03 Sesar Human Metapneumo PCR NOT DETECTED 06/11/23 11:03 Nasal M.pneumoniae (PCR) NOT DETECTED 06/11/23 11:03 Nasal SARS-CoV-2 (PCR) NOT DETECTED 06/11/23 11:03 Stl C. diff Tox B Gene NEGATIVE (NEGATIVE) 06/21/23 16:15
[2023-06-23 06:48] LABS: BASOPHILS % (AUTO) 0.1 %; EOSINOPHILS % (AUTO) 0.4 %; HCT - HEMATOCRIT 26.2 % (37.0-47.0); HGB - HEMOGLOBIN 8.4 g/dL (12.0-16.0); LYMPHOCYTES # (AUTO) 1.7 10^3/uL (1.5-3.5); LYMPHOCYTES % (AUTO) 20.4 %; MEAN CORPUSCULAR HEMOGLOBIN 29.2 pg (27.0-31.0); MEAN CORPUSCULAR HGB CONC 32.1 g/dL (32.0-36.0); MONOCYTES # (AUTO) 0.7 10^3/uL (0.0-1.0); NEUTROPHILS # (AUTO) 5.9 10^3/uL (1.5-6.6); NEUTROPHILS % (AUTO) 69.6 %; NRBC ABSOLUTE COUNT (AUTO) 0.06 x10^3/uL; NUCLEATED RED BLOOD CELLS AUTO 0.7 /100WBC; PLT - PLATELET COUNT 111 10^3/uL (130-450); RED BLOOD COUNT 2.88 10^6/uL (4.20-5.40); RED CELL DISTRIBUTION WIDTH 16.6 % (12.0-15.0); WHITE BLOOD COUNT 8.5 x10^3/uL (4.8-10.8)
[2023-06-23 07:11] LABS: CALCIUM 8.6 mg/dL (8.5-10.3); CREATININE 0.6 mg/dL (0.6-1.3); POTASSIUM 3.9 mmol/L (3.5-4.5)
--- NOTE | 2023-06-23 17:56 | CONSULTATION NOTE ---
Palliative Care Follow Up - Referral Referring Provider: Dr. Wright Time of Visit: 4:00-4:30 Referral setting: Hospitalized patient Referral Reason: Follow up anorexia, weakness, fatigue, aortic stenosis - Information Sources Records reviewed: RN notes reviewed, Previous records reviewed, Other (PT notes) History/Review of Systems obtained from: Patient, Family Exam limitations: Clinical condition - History of Present Illness Update Brief HPI Update: Patient is a pleasant 77 year old woman presenting with anorexia , fatigue, weakness, and failure to thrive. Spoke with the patient, her , her daughter, and Sandi with discharge planning in her inpatient room. She has progress today sitting up in the recliner chair however has minimal oral intake. Physical therapy worked with the patient and found lower extremity weakness and recommended alf facility. The family would like the patient to go home to [facility]. Sandi explained she is awaiting a call back from [facility] to find out what level of care they can admit back to the facility. If [facility] can admit her back in the current condition, Sandi recommends home health services. This would include registered nursing, physical and occupational therapy, social work, and home health aide. The patient has been clear she does not want to go to a alf facility or return home on hospice. She was originally being worked up for TAVR procedure when she fell ill and at this point is not a candidate due to her deteriorated health. Hospice provided an informational visit on June 21, 2023. The patient may also elect hospice and again depending upon if [facility] can admit her. Dr. Mela Lopez contacting the patient's daughter by phone as the patient's has gone home and her daughter has additional questions. Communicated that palliative care will continue following patient throughout hospital stay and at home. 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 Support System: Living at [facility] with her . Prior to health decline patient independent, eating meals in the dining room, interactive with other residents, participates in orthodox activities, and drove a car. In addition, her reports she liked cooking. Medications/Allergies - Medications Active Medication List: Active Medications Cholecalciferol (Cholecalciferol 25 Mcg Tablet) 50 mcg PO DAILY ON LICENSE OF [facility] Last Admin: 06/23/23 10:02 Dose: 50 mcg Dexamethasone (Dexamethasone 4 Mg Tablet) 2 mg PO DAILY ON LICENSE OF [facility] Last Admin: 06/23/23 10:03 Dose: 2 mg Heparin Sodium (Porcine) (Heparin 5,000 Unit/Ml Vial) 5,000 unit SUBQ BID ON LICENSE OF [facility] Last Admin: 06/23/23 10:10 Dose: 5,000 unit Insulin Human Lispro (Insulin Lispro 300 Unit/3 Ml Pen) 3 - 11 unit SUBQ 0800,1200,1700,2100 ON LICENSE OF [facility]; Protocol Last Admin: 06/23/23 13:52 Dose: 5 unit Magnesium Oxide (Magnesium Oxide 400 Mg Tablet) 400 mg PO DAILYWM ON LICENSE OF [facility] Last Admin: 06/23/23 10:03 Dose: 400 mg Metoprolol Tartrate (Metoprolol Tartrate 50 Mg Tablet) 75 mg PO BID ON LICENSE OF [facility] Last Admin: 06/23/23 10:02 Dose: 75 mg Mirtazapine (Mirtazapine 15 Mg Tablet) 15 mg PO QPM ON LICENSE OF [facility] Last Admin: 06/22/23 21:23 Dose: 15 mg Multi-Ingredient Ointment (Zinc Oxide 20% Oint 30 Gm Tube) 1 applic TOP PRN PRN PRN Reason: Skin Care Last Admin: 06/21/23 10:41 Dose: 1 applic Multivitamins/Folic Acid/Vitamin C (Multivitamin W/Iron, Minerals 15 Ml) 15 ml PO DAILY ON LICENSE OF [facility] Last Admin: 06/23/23 10:01 Dose: 15 ml Ondansetron HCl (Ondansetron 4 Mg/2 Ml Vial) 4 mg IVP Q6HR PRN PRN Reason: Nausea / Vomiting Polyethylene Glycol (Polyethylene Glycol 3350 17 Gm Packet) 17 gm PO DAILY ON LICENSE OF [facility] Last Admin: 06/23/23 10:04 Dose: Not Given Sodium Chloride (Sodium Chloride Flush 0.9% 10 Ml Syringe) 10 ml IVP PRN PRN PRN Reason: NEEDED PER PROVIDER ORDERS Last Admin: 06/21/23 18:27 Dose: 10 ml Sodium Chloride (Sodium Chloride Flush 0.9% 10 Ml Syringe) 10 ml IVP 0100,0900,1700 ON LICENSE OF [facility] Last Admin: 06/23/23 13:53 Dose: 10 ml Throat Lozenges (Benzocaine/Menthol Lozenge) 1 lozenge MM Q2HR PRN PRN Reason: Throat pain Timolol Maleate (Timolol 0.5% Ophth Drops) 1 drops RIGHTEYE BID ON LICENSE OF [facility] Last Admin: 06/23/23 10:01 Dose: 1 drops Atorvastatin [Lipitor] 20 mg PO HS 12/01/22 Lidocaine Patch 5% [Lidoderm Patch] 1 each TOP DAILY 12/01/22 Losartan Potassium 25 mg PO DAILY 12/01/22 Metoprolol Tartrate [Lopressor] 25 mg PO DAILY 12/01/22 Naloxone HCl [Narcan] 4 mg NS ONCE PRN 12/01/22 Timolol 0.5% Ophth Drops [Timoptic 0.5% Ophth Drops] 1 drops OPTH BID 12/01/22 Amitriptyline [Elavil] 10 mg PO HS 06/11/23 Docusate Sodium [Dulcolax Stool Softener] 100 mg PO DAILY 06/11/23 Furosemide [Lasix] 40 mg PO DAILY 06/11/23 hydroCHLOROthiazide [Hydrodiuril] 25 mg PO DAILY 06/11/23 metFORMIN [Glucophage] 500 mg PO DAILY 06/11/23 Estrogens, Conjugated [Premarin] 0.625 mg PO DAILY 06/14/23 Glipizide [Glipizide ER] 5 mg PO DAILY 06/14/23 Insulin Glargine [Lantus Solostar] 10 units SUBQ HS 06/14/23 allopurinoL [Allopurinol] 300 mg PO DAILY 06/14/23 - Allergies Allergies/Adverse Reactions: Allergies Allergy/AdvReac Type Severity Reaction Status Date / Time codeine AdvReac Unknown Verified 06/01/23 20:42 lisinopril AdvReac Unknown Verified 06/01/23 20:42 methocarbamol [From Robaxin] AdvReac Unknown Verified 06/01/23 20:42 nicotine [From Nicoderm CQ] AdvReac Unknown Verified 06/11/23 10:51 Review of Systems - Constitutional Constitutional: reports: Fatigue, Weakness, Poor appetite - Gastrointestinal Gastrointestinal: reports: Poor appetite - Genitourinary Genitourinary: reports: Incontinence (catheter) - Musculoskeletal Musculoskeletal: reports: Muscle weakness, Assistive devices (was ambulatory with walker) - Neurological Neurological: reports: General weakness - Psychiatric Psychiatric: reports: Other (apathy) - Endocrine Endocrine: reports: Diabetes type 2 Physical Exam - Vital Signs Vital Signs: Vital Signs x48h Temp Pulse Resp BP BP Pulse Ox 06/23/23 15:55 36.5 C 78 16 114/54 L 97 06/23/23 10:02 137/63 H - Physical Exam General Appearance: positive: Lethargic (answers questions opening eyes occassionally), Other (Appears frail, answers questions appropriate, sitting upright in chair bedside, interacts in meeting) Eyes Bilateral: positive: EOMI, No scleral icterus, Other (meets gaze) ENT: positive: Dry mucous membranes Neck: positive: No JVD, Trachea midline Cardiovascular: positive: Regular rate & rhythm, Systolic murmur Respiratory: positive: No respiratory distress, Rales (right lower lobe fine rales) Abdomen: positive: Non-tender, Soft, Other (hypoactive bowel sounds) Skin: positive: Dryness, Other (CVP in neck) Extremities: positive: Pedal edema (trace bilateral) Neurologic/Psychiatric: positive: Disoriented to time, Weakness, Other (oriented to person, place, and situation, difficulty concentrating, speech clear, tearful discussing Hospice) Palliative Care - POLST POLST Status: Full Code Pain: No pain Tiredness/Fatigue: Moderate (4-6) Drowsiness/Sedation: Moderate (4-6) Nausea: None Anorexia: Severe (7-10) Dyspnea: None Depression: Mild (1-3) Anxiety: None Sleep: Sleeps well Performance Status: Patient sitting upright in recliner, eating and drinking independently, minimal effort exerted - Palliative Care Discussion: Palliative care discussion regarding patient's frailty, poor appetite, and discharge planning. Participated in family meeting with social work and palliative care provider, see HPI. Patient had minimal effort working with hospital providers including physical therapy except when her family was be dside. Discussed multiple options for discharge. Patient would like to go home to [facility]. See HPI. The patient's daughter is upset and would like to take her mother home and is concerned she has not participated in physical therapy. Explained to family that the minimal physical requirements to safely care for herself include sit to stand, pivot, stand to sit on bedside commode, and again in reverse transition. Transition to [facility] will depend on their acceptance of nursing care needs. The patient started crying loudly when she heard the word hospice. Her daughter stated "she thinks its he end when she hears the word hospice". Reinforced going home on hospice does not mean the end of life. That she could improve, get stronger, and be discharged from hospice. Palliative care to follow up tomorrow for psychosocial support, anticipatory guidance and advanced care planning. - Advance Care Planning Patient remains a full code. She believes GOD has his hand over her health and johny that he will guide her journey. Results - Lab Results Fish Bones: 06/23/23 06:40 06/23/23 06:40 Lab and Imaging Results: Lab Results x24hrs 06/23/23 06/23/23 06/22/23 Range/Units 06:40 06:40 20:43 WBC 8.5 (4.8-10.8) x10^3/uL RBC 2.88 L (4.20-5.40) 10^6/uL Hgb 8.4 L (12.0-16.0) g/dL Hct 26.2 L (37.0-47.0) % MCV 91.0 (81.0-99.0) fL MCH 29.2 (27.0-31.0) pg MCHC 32.1 (32.0-36.0) g/dL RDW 16.6 H (12.0-15.0) % Plt Count 111 L (130-450) 10^3/uL MPV 10.0 (7.9-10.8) fL Neut # (Auto) 5.9 (1.5-6.6) 10^3/uL Lymph # (Auto) 1.7 (1.5-3.5) 10^3/uL [place] # (Auto) 0.7 (0.0-1.0) 10^3/uL Eos # (Auto) 0.0 (0.0-0.7) 10^3/uL Baso # (Auto) 0.0 (0.0-0.1) 10^3/uL Absolute Nucleated RBC 0.06 x10^3/uL Nucleated RBC % 0.7 /100WBC Sodium 141 (135-145) mmol/L Potassium 3.9 (3.5-4.5) mmol/L Chloride 111 (101-111) mmol/L Carbon Dioxide 22 (21-32) mmol/L Anion Gap 8.0 (6-13) BUN 23 H (6-20) mg/dL Creatinine 0.6 (0.6-1.3) mg/dL Estimated GFR (MDRD) 117 (>89) Glucose 121 H (74-104) mg/dL POC Whole Bld Glucose 260 H (70 - 100) mg/dL Calcium 8.6 (8.5-10.3) mg/dL Impression and Recommendations - Palliative Care Impression: 1. Failure to thrive, patient has anorexia and limited oral intake. She remains weak and unwilling to participate in most activities or eating meals. Counseled patient of the importance of eating to gain strength and conditioning. Patient and family with insight that failure to eat will result in continued decline of strength and lead to . 2. Aortic stenosis, severe, patient with previous workup for TAVR. Unfortunately due to her continued weakness she is not a candidate at this time. Patient trying to make a decision to transfer home versus go to alf facility. 3. Advance care planning, discussed discharge planning options with the p atlisandra, her , her daughter, and social work. Discussed patient case with inpatient provider Dr. Lopez. Approximately 45 minutes spent reviewing EHR and patient, previous note, coordination of care with social work, family meeting, and patient provider, hospice; provided health education, psychosocial support, disease trajectory, anticipatory guidance, and advance care planning.
--- NOTE | 2023-06-23 19:05 | PROVIDER PROGRESS NOTE ---
Subjective - Prog Note Date Prog Note Date: 06/23/23 Prog Note Time: 19:02 - Subjective Subjective: Well this twin lady has definitely improved with regards to alertness, being able to participate in conversation, she is still very sleepy. She understands her conversations about where to go home. She and her want to go to [place]. But [place] will only accept her because she will need hospice. They feel that her needs exceed their ability to deliver care without the help of hospice. But the patient does not want to go home with hospice because she feels that that would be "the end and everyone will give up". Daughter is wishing that mom could possibly go to [facility] for rehab. I appreciate the wonderful work that palliative care is doing with this family. There have been difficult conversations. I did try to speak to the daughter Irma cobb since the patient's is gone. Irma is a [phone] and no answer. Message was left on her phone. The patient is still profoundly weak. Sleeps most of the day. Total assist with eating. Yesterday she was able to eat 25% of breakfast, 50% of lunch and dinner. Today she has eaten no food at all. On the she did not eat at all. On the she ate 100% of lunch, 50% of dinner. Her weight on June 11 was 79 kg. She is 67 kg today. Current Medications - Current Medications Current Medications: Active Medications Cholecalciferol (Cholecalciferol 25 Mcg Tablet) 50 mcg PO DAILY [facility] Last Admin: 06/23/23 10:02 Dose: 50 mcg Dexamethasone (Dexamethasone 4 Mg Tablet) 2 mg PO DAILY [facility] Last Admin: 06/23/23 10:03 Dose: 2 mg Heparin Sodium (Porcine) (Heparin 5,000 Unit/Ml Vial) 5,000 unit SUBQ BID [facility] Last Admin: 06/23/23 10:10 Dose: 5,000 unit Insulin Human Lispro (Insulin Lispro 300 Unit/3 Ml Pen) 3 - 11 unit SUBQ 0800,1 200,1700,2100 [facility]; Protocol Last Admin: 06/23/23 17:15 Dose: 7 unit Magnesium Oxide (Magnesium Oxide 400 Mg Tablet) 400 mg PO DAILYWM [facility] Last Admin: 06/23/23 10:03 Dose: 400 mg Metoprolol Tartrate (Metoprolol Tartrate 50 Mg Tablet) 75 mg PO BID [facility] Last Admin: 06/23/23 10:02 Dose: 75 mg Mirtazapine (Mirtazapine 15 Mg Tablet) 15 mg PO QPM [facility] Last Admin: 06/22/23 21:23 Dose: 15 mg Multi-Ingredient Ointment (Zinc Oxide 20% Oint 30 Gm Tube) 1 applic TOP PRN PRN PRN Reason: Skin Care Last Admin: 06/21/23 10:41 Dose: 1 applic Multivitamins/Folic Acid/Vitamin C (Multivitamin W/Iron, Minerals 15 Ml) 15 ml PO DAILY [facility] Last Admin: 06/23/23 10:01 Dose: 15 ml Ondansetron HCl (Ondansetron 4 Mg/2 Ml Vial) 4 mg IVP Q6HR PRN PRN Reason: Nausea / Vomiting Polyethylene Glycol (Polyethylene Glycol 3350 17 Gm Packet) 17 gm PO DAILY [facility] Last Admin: 06/23/23 10:04 Dose: Not Given Sodium Chloride (Sodium Chloride Flush 0.9% 10 Ml Syringe) 10 ml IVP PRN PRN PRN Reason: NEEDED PER PROVIDER ORDERS Last Admin: 06/21/23 18:27 Dose: 10 ml Sodium Chloride (Sodium Chloride Flush 0.9% 10 Ml Syringe) 10 ml IVP 0100,0900,1700 [facility] Last Admin: 06/23/23 17:15 Dose: 10 ml Throat Lozenges (Benzocaine/Menthol Lozenge) 1 lozenge MM Q2HR PRN PRN Reason: Throat pain Timolol Maleate (Timolol 0.5% Ophth Drops) 1 drops RIGHTEYE BID [facility] Last Admin: 06/23/23 10:01 Dose: 1 drops Atorvastatin [Lipitor] 20 mg PO HS 12/01/22 Lidocaine Patch 5% [Lidoderm Patch] 1 each TOP DAILY 12/01/22 Losartan Potassium 25 mg PO DAILY 12/01/22 Metoprolol Tartrate [Lopressor] 25 mg PO DAILY 12/01/22 Naloxone HCl [Narcan] 4 mg NS ONCE PRN 12/01/22 Timolol 0.5% Ophth Drops [Timoptic 0.5% Ophth Drops] 1 drops OPTH BID 12/01/22 Amitriptyline [Elavil] 10 mg PO HS 06/11/23 Docusate Sodium [Dulcolax Stool Softener] 100 mg PO DAILY 06/11/23 Furosemide [Lasix] 40 mg PO DAILY 06/11/23 hydroCHLOROthiazide [Hydrodiuril] 25 mg PO DAILY 06/11/23 metFORMIN [Glucophage] 500 mg PO DAILY 06/11/23 Estrogens, Conjugated [Premarin] 0.625 mg PO DAILY 06/14/23 Glipizide [Glipizide ER] 5 mg PO DAILY 06/14/23 Insulin Glargine [Lantus Solostar] 10 units SUBQ HS 06/14/23 allopurinoL [Allopurinol] 300 mg PO DAILY 06/14/23 Objective - Vital Signs/Intake & Output Reviewed Vital Signs: Yes Vital Signs: Vital Signs x48h Temp Pulse Resp BP Pulse Ox 06/23/23 15:55 36.5 C 78 16 114/54 L 97 Intake & Output: Intake & Output 06/20/23 06/21/23 06/22/23 06/23/23 23:59 23:59 23:59 23:59 Intake Total 2504 750 540 320 Output Total 1950 1575 1250 900 Balance 554 -825 -710 -580 - Objective General Appearance: positive: No acute distress, Alert, Other (I have seen her twice today. Sleeping both times but easily awakens. Starts to cry when we talk about how poorly she is doing, and how frightened she is to go into hospice.) Eyes Bilateral: positive: PERRL, EOMI Neck: positive: No JVD Respiratory: positive: No respiratory distress. negative: Wheezes, Rales, Rhonchi Cardiovascular: positive: Regular rate & rhythm, Systolic murmur Skin: positive: Warm, Dry - Lab Results Fish Bones: 06/23/23 06:40 06/23/23 06:40 Other Labs: Lab Results x24hrs 06/23/23 06/23/23 06/22/23 Range/Units 06:40 06:40 20:43 WBC 8.5 (4.8-10.8) x10^3/uL RBC 2.88 L (4.20-5.40) 10^6/uL Hgb 8.4 L (12.0-16.0) g/dL Hct 26.2 L (37.0-47.0) % MCV 91.0 (81.0-99.0) fL MCH 29.2 (27.0-31.0) pg MCHC 32.1 (32.0-36.0) g/dL RDW 16.6 H (12.0-15.0) % Plt Count 111 L (130-450) 10^3/uL MPV 10.0 (7.9-10.8) fL Neut # (Auto) 5.9 (1.5-6.6) 10^3/uL Lymph # (Auto) 1.7 (1.5-3.5) 10^3/uL Howell # (Auto) 0.7 (0.0-1.0) 10^3/uL Eos # (Auto) 0.0 (0.0-0.7) 10^3/uL Baso # (Auto) 0.0 (0.0-0.1) 10^3/uL Absolute Nucleated RBC 0.06 x10^3/uL Nucleated RBC % 0.7 /100WBC Sodium 141 (135-145) mmol/L Potassium 3.9 (3.5-4.5) mmol/L Chloride 111 (101-111) mmol/L Carbon Dioxide 22 (21-32) mmol/L Anion Gap 8.0 (6-13) BUN 23 H (6-20) mg/dL Creatinine 0.6 (0.6-1.3) mg/dL Estimated GFR (MDRD) 117 (>89) Glucose 121 H (74-104) mg/dL POC Whole Bld Glucose 260 H (70 - 100) mg/dL Calcium 8.6 (8.5-10.3) mg/dL Assessment/Plan - Problem List (1) Aortic stenosis, severe Impression: The family is so confusing at times. When I mention that she has severe aortic stenosis they seem surprised by this. Yet she is clearly been worked up for a valve repair. They are not clear whether she was a candidate or not. But as time is gone on with this hospitalization, she is sleeping all the time, not eating, not working with physical therapy, she would be a poor candidate for recovery. I explained all this to her and her daughter. A few minutes later daughter is asking the same questions again. I think they are having difficulty trying to process the severity of the situation and the possibility that there loved one is slowly dying from this.I did offer a reevaluation by having her transfer to . But they do not want. They seem to be aware that she would be at high risk for dying due to the procedure. (2) AMS (altered mental status) Impression: History is of possible valvular heart disease for months, but no confirmation and a gradual decline in functional status with a sharp decline over the last 2 months accompanied by sleepiness and altered mental status, anorexia. Findings on admission were a UTI, hyponatremia, BUN of 121. These were the causes of her altered mental status. Her labs have responded to antibiotics and IV fluids. BUN has slowly come down to 23 today. In spite of that this patient is still lethargic, sleeps very easily. But I do find that when she is awake, she is decisional. She understands what I am saying. Gets very weepy when I talk about possible hospice. Palliative care consult following the patient. I explained to her that in order for her to get better or show any progress she must eat. She has to get up out of bed to get into a chair. PT has tried with her and she just does not want to do it. (3) FTT Patient received 4 days of tube feedings, has been started on Remeron, and has been followed by palliative care. Although she is conversant, and making decisions, she is still not able to get out of bed. Cannot work with PT. Diet has been advanced and patient really does not want to eat. (4) Diarrhea. While on Jevity NG feeds, she had liquid diarrhea. C. difficile toxin ordered. However no diarrhea now. So no C. difficile submitted as of yet. She had none of her breakfast and none of her lunch today. (5) Prerenal azotemia Due to dehydration and probable aortic stenosis. Creatinine normal since June 13. She was admitted at 3.3 and has been down to 0.6 since 06/21. BUN and creatinine ratio still elevated. (6) DM type 2 The reconciled med list shows that the patient was on metformin and insulin at home. She was also on Decadron 4 mg daily at home which was initially continued here. I see no indication for her to be on Decadron. The Decadron has raised her glucose level as high as 400s while here With tube feedings being discontinued 06/20, glucose was 57 06/21. She received some orange juice and went back up to 92. I discontinued her Semglee since she is not eating and I do not want to make her hypoglycemic. That was done June 21. On the she was started coming back up into the high 200s. Then today she is in the mid 200s. This is with sliding scale. I will watch her 1 more day and see if I need to resume some Lantus tomorrow. (7) CHF Chest x-ray revealed cephalization of vessels and patient has significant lower extremity edema. She has not been hypoxic however Due to concern for heart failure, an Echocardiogram was done that showed LVEF 70% She has not been in florid heart failure and has not required any Lasix this admission. Plan: Continue to monitor for any signs and symptoms of CHF or need for diuresis. (8) Hypomagnesia Plan: Continue to monitor and replace if low (9) Hypophosphatemia Plan: Follow phosphate level and replace if low (10) Anemia Likely from hemodilution Plan: If hemoglobin drops below 7, we will transfuse (11) Urinary tract infection TREATED U/A was abn and she had AMS at admission She received one dose of fosfomycin (12) Acute on chronic renal insufficiency Assessment/Plan: RESOLVED Patient creatinine In May 2023 was 1.4. At admission, her creatinine was 3.3. She reported decreased oral intake over the last several weeks. Creatinine and uremia have significantly improved since admission. IV fluids were stopped Plan: Follow BMP daily (13) Tachycardia RESOLVED She was tachy at 100-110 continuously, likely from volume depletion Heart rate is now in the 80s after I increased her heart rate-slowing meds and she has had 4 days of aggressive NG fluid and nutrition replacement
[2023-06-23] MEDS: MIRTAZAPINE 15 MG TABLET PO SCH (21:44)
--- NOTE | 2023-06-24 18:21 | PROVIDER PROGRESS NOTE ---
Subjective - Prog Note Date Prog Note Date: 06/24/23 Prog Note Time: 18:16 - Subjective Pt reports feeling: No change Current Medications - Current Medications Current Medications: Active Medications Cholecalciferol (Cholecalciferol 25 Mcg Tablet) 50 mcg PO DAILY [facility] Last Admin: 06/24/23 10:48 Dose: 50 mcg Dexamethasone (Dexamethasone 4 Mg Tablet) 2 mg PO DAILY [facility] Last Admin: 06/24/23 10:48 Dose: 2 mg Heparin Sodium (Porcine) (Heparin 5,000 Unit/Ml Vial) 5,000 unit SUBQ BID [facility] Last Admin: 06/24/23 12:33 Dose: Not Given Insulin Glargine-yfgn (Insulin Glargine-Yfgn 300 Unit/3 Ml Pen) 5 unit SUBQ QDAC [facility] Insulin Human Lispro (Insulin Lispro 300 Unit/3 Ml Pen) 3 - 11 unit SUBQ 0800,1200,1700,2100 [facility]; Protocol Last Admin: 06/24/23 16:45 Dose: 5 unit Magnesium Oxide (Magnesium Oxide 400 Mg Tablet) 400 mg PO DAILYWM [facility] Last Admin: 06/24/23 10:48 Dose: 400 mg Metoprolol Tartrate (Metoprolol Tartrate 50 Mg Tablet) 75 mg PO BID [facility] Last Admin: 06/24/23 10:48 Dose: 75 mg Mirtazapine (Mirtazapine 15 Mg Tablet) 15 mg PO QPM [facility] Last Admin: 06/23/23 21:44 Dose: 15 mg Multi-Ingredient Ointment (Zinc Oxide 20% Oint 30 Gm Tube) 1 applic TOP PRN PRN PRN Reason: Skin Care Last Admin: 06/23/23 22:20 Dose: 1 applic Multivitamins/Folic Acid/Vitamin C (Multivitamin W/Iron, Minerals 15 Ml) 15 ml PO DAILY [facility] Last Admin: 06/24/23 10:49 Dose: 15 ml Ondansetron HCl (Ondansetron 4 Mg/2 Ml Vial) 4 mg IVP Q6HR PRN PRN Reason: Nausea / Vomiting Polyethylene Glycol (Polyethylene Glycol 3350 17 Gm Packet) 17 gm PO DAILY [facility] Last Admin: 06/24/23 12:24 Dose: Not Given Sodium Chloride (Sodium Chloride Flush 0.9% 10 Ml Syringe) 10 ml IVP PRN PRN PRN Reason: NEEDED PER PROVIDER ORDERS Last Admin: 06/24/23 01:51 Dose: 30 ml Sodium Chloride (Sodium Chloride Flush 0.9% 10 Ml Syringe) 10 ml IVP 0100,0900, 1700 [facility] Last Admin: 06/24/23 16:48 Dose: 10 ml Throat Lozenges (Benzocaine/Menthol Lozenge) 1 lozenge MM Q2HR PRN PRN Reason: Throat pain Timolol Maleate (Timolol 0.5% Ophth Drops) 1 drops RIGHTEYE BID [facility] Last Admin: 06/24/23 10:49 Dose: 1 drops Atorvastatin [Lipitor] 20 mg PO HS 12/01/22 Lidocaine Patch 5% [Lidoderm Patch] 1 each TOP DAILY 12/01/22 Losartan Potassium 25 mg PO DAILY 12/01/22 Metoprolol Tartrate [Lopressor] 25 mg PO DAILY 12/01/22 Naloxone HCl [Narcan] 4 mg NS ONCE PRN 12/01/22 Timolol 0.5% Ophth Drops [Timoptic 0.5% Ophth Drops] 1 drops OPTH BID 12/01/22 Amitriptyline [Elavil] 10 mg PO 06/11/23 Docusate Sodium [Dulcolax Stool Softener] 100 mg PO DAILY 06/11/23 Furosemide [Lasix] 40 mg PO DAILY 06/11/23 hydroCHLOROthiazide [Hydrodiuril] 25 mg PO DAILY 06/11/23 metFORMIN [Glucophage] 500 mg PO DAILY 06/11/23 Estrogens, Conjugated [Premarin] 0.625 mg PO DAILY 06/14/23 Glipizide [Glipizide ER] 5 mg PO DAILY 06/14/23 Insulin Glargine [Lantus Solostar] 10 units SUBQ 06/14/23 allopurinoL [Allopurinol] 300 mg PO DAILY 06/14/23 Objective - Vital Signs/Intake & Output Reviewed Vital Signs: Yes Vital Signs: Vital Signs x48h Temp Pulse Resp BP BP Pulse Ox 06/24/23 15:52 36.4 C L 80 20 137/57 H 100 06/24/23 10:48 165/68 H Intake & Output: Intake & Output 06/21/23 06/22/23 06/23/23 06/24/23 23:59 23:59 23:59 23:59 Intake Total 750 540 720 340 Output Total 1575 1250 1225 850 Balance -825 -710 -505 -510 - Objective General Appearance: positive: No acute distress (Short statured black female, no acute distress), Other (Sleeping all day. But willing to get up and eat at lunch, and at dinner. The effort to try and sit up completely exhausted her and she ended up needing a Kwan to get her upright. Multiple conversations with , daughter, and palliative care today. Very difficult emotional day for the famil) Eyes Bilateral: positive: PERRL Neck: positive: No JVD Respiratory: positive: No respiratory distress. negative: Wheezes, Rales, Rhonchi Cardiovascular: positive: Regular rate & rhythm, Systolic murmur Abdomen: positive: Non-tender, No organomegaly, Nml bowel sounds, No distention Skin: positive: Warm, Dry Extremities: positive: Full ROM, No pedal edema Neurologic/Psychiatric: positive: Oriented x3, CN's nml (2-12). negative: Motor nml (Diffuse nonfocal generalized weakness where she is a max assist with a Kwan to go from sitting to standing) - Lab Results Fish Bones: 06/23/23 06:40 06/23/23 06:40 Other Labs: Lab Results x24hrs 06/24/23 06/24/23 06/24/23 Range/Units 15:48 11:11 07:37 POC Whole Bld Glucose 215 H 183 H 127 H (70 - 100) mg/dL Assessment/Plan - Problem List (1) Aortic stenosis, severe Impression: Another family conference today. Palliative care has been very vigilant about coming back to see this family sometimes twice a day. While they hear the words about mom's poor prognosis and overall failure to thrive, their questions centered around survivability. When they ask us for options we give them options such as going to a [place] [facility] for rehab (but if she does not cooperate, she will be discharged), returning to her assisted living facility (but only if she is in hospice), or transitioning to a correction facility permanently at patient self pay. I explained these options, palliative care explained these options, and the family is reluctant to make any decision. Daughter even asked to the patient could just remain here. I explained to her that mom no longer has acute medical needs. She is about a stable as I am going to get her with regards to severe aortic stenosis and failure to thrive. Mom is still decisional. If she refuses to work with PT or refuses to eat, we will not force her to eat and we will not force her to get out of bed. After 3 separate conversations held over about 4 hours, they finally decided that they will take her back to [facility]. They have asked that I order hospice. They have also allowed me to change her CODE STATUS to DO NOT RESUSCITATE but they are not emotionally ready to actually fill out the form for POLST. There is been no acute hospital care provider for her for at least 3 days now. It has been basically at the level of having these difficult conversations in the family to make a decision. (2) AMS (altered mental status) Impression: History is of possible valvular heart disease for months, but no confirmation and a gradual decline in functional status with a sharp decline over the last 2 months accompanied by sleepiness and altered mental status, anorexia. Findings on admission were a UTI, hyponatremia, BUN of 121. These were the causes of her altered mental status. Her labs have responded to antibiotics and IV fluids. BUN has slowly come down to 23 today. In spite of that this patient is still lethargic, sleeps very easily. But I do find that when she is awake, she is decisional. She understands what I am saying. Gets very weepy when I talk about possible hospice. Palliative care consult following the patient. I explained to her that in order for her to get better or show any progress she must eat. She has to get up out of bed to get into a chair. PT has tried with her and she just does not want to do it.Today she asked to get out of bed and got as far as going from supine to sitting. Trying to transition from sitting to standing with a walker. She stood for about 5 seconds and needed to sit back down again. She needs a lift to get her out of the bed. Today there is no change in the status (3) FTT Patient received 4 days of tube feedings, has been started on Remeron, and has been followed by palliative care. Although she is conversant, and making decisions, she is still not able to get out of bed. Cannot work with PT. Diet has been advanced and patient really does not want to eat. She supervises today. She as she ate a bowl of clam chowder at lunch and asked her again for dinner. (4) Diarrhea. While on Jevity NG feeds, she had liquid diarrhea. C. difficile toxin ordered. However no diarrhea now. So no C. difficile submitted as of yet. She had none of her breakfast and none of her lunch today. (5) Prerenal azotemia Due to dehydration and probable aortic stenosis. Creatinine normal since June 13. She was admitted at 3.3 and has been down to 0.6 since 06/21. BUN and creatinine ratio still elevated. (6) DM type 2 The reconciled med list shows that the patient was on metformin and insulin at home. She was also on Decadron 4 mg daily at home which was initially continued here. I see no indication for her to be on Decadron. The Decadron has raised her glucose level as high as 400s while here With tube feedings being discontinued 06/20, glucose was 57 06/21. She received some orange juice and went back up to 92. I discontinued her Semglee since she is not eating and I do not want to make her hypoglycemic. That was done June 21. On the she was started coming back up into the high 200s. Then on the she was in the mid 200s. This is with sliding scale. She is still in the mid 200s today so I have resumed Lantus 5 units. (7) CHF Chest x-ray revealed cephalization of vessels and patient has significant lower extremity edema. She has not been hypoxic however Due to concern for heart failure, an Echocardiogram was done that showed LVEF 70% She has not been in florid heart failure and has not required any Lasix this admission. Plan: Continue to monitor for any signs and symptoms of CHF or need for diuresis. (8) Hypomagnesia Plan: Continue to monitor and replace if low (9) Hypophosphatemia Plan: Follow phosphate level and replace if low (10) Anemia Likely from hemodilution Plan: If hemoglobin drops below 7, we will transfuse (11) Urinary tract infection TREATED U/A was abn and she had AMS at admission She received one dose of fosfomycin (12) Acute on chronic renal insufficiency Assessment/Plan: RESOLVED Patient creatinine In May 2023 was 1.4. At admission, her creatinine was 3.3. She reported decreased oral intake over the last several weeks. Creatinine and uremia have significantly improved since admission. IV fluids were stopped Plan: Follow BMP daily (13) Tachycardia RESOLVED She was tachy at 100-110 continuously, likely from volume depletion Heart rate is now in the 80s after I increased her heart rate-slowing meds and she has had 4 days of aggressive NG fluid and nutrition replacement
[2023-06-25] MEDS: INSULIN GLARGINE-YFGN 300 UNIT/3 ML PEN SUBQ SCH (08:36)
--- NOTE | 2023-06-25 19:08 | PROVIDER PROGRESS NOTE ---
Subjective - Prog Note Date Prog Note Date: 06/25/23 Prog Note Time: 19:07 - Subjective Pt reports feeling: No change Subjective: Finally we have a plan. But unfortunately she cannot get home until Tuesday (today is Tuesday). Hospice cannot open her up till then. I tried to do a POLST form with her but she was sleeping most of the day and daughter asked that I not disturb her mom Current Medications - Current Medications Current Medications: Active Medications Cholecalciferol (Cholecalciferol 25 Mcg Tablet) 50 mcg PO DAILY [facility] Last Admin: 06/25/23 08:27 Dose: 50 mcg Dexamethasone (Dexamethasone 4 Mg Tablet) 2 mg PO DAILY [facility] Last Admin: 06/25/23 08:28 Dose: 2 mg Insulin Glargine-yfgn (Insulin Glargine-Yfgn 300 Unit/3 Ml Pen) 5 unit SUBQ QDAC [facility] Last Admin: 06/25/23 08:36 Dose: 5 unit Insulin Human Lispro (Insulin Lispro 300 Unit/3 Ml Pen) 3 - 11 unit SUBQ 0800,1200,1700,2100 [facility]; Protocol Last Admin: 06/25/23 17:21 Dose: 9 unit Magnesium Oxide (Magnesium Oxide 400 Mg Tablet) 400 mg PO DAILYWM [facility] Last Admin: 06/25/23 08:27 Dose: 400 mg Metoprolol Tartrate (Metoprolol Tartrate 50 Mg Tablet) 75 mg PO BID [facility] Last Admin: 06/25/23 08:27 Dose: 75 mg Mirtazapine (Mirtazapine 15 Mg Tablet) 15 mg PO QPM [facility] Last Admin: 06/24/23 20:27 Dose: 15 mg Multi-Ingredient Ointment (Zinc Oxide 20% Oint 30 Gm Tube) 1 applic TOP PRN PRN PRN Reason: Skin Care Last Admin: 06/25/23 00:40 Dose: 1 applic Multivitamins/Folic Acid/Vitamin C (Multivitamin W/Iron, Minerals 15 Ml) 15 ml PO DAILY [facility] Last Admin: 06/25/23 08:31 Dose: 15 ml Ondansetron HCl (Ondansetron 4 Mg/2 Ml Vial) 4 mg IVP Q6HR PRN PRN Reason: Nausea / Vomiting Polyethylene Glycol (Polyethylene Glycol 3350 17 Gm Packet) 17 gm PO DAILY [facility] Last Admin: 06/25/23 08:29 Dose: Not Given Sodium Chloride (Sodium Chloride Flush 0.9% 10 Ml Syringe) 10 ml IVP PRN PRN PRN Reason: NEEDED PER PROVIDER ORDERS Last Admin: 06/24/23 01:51 Dose: 30 ml Sodium Chloride (Sodium Chloride Flush 0.9% 10 Ml Syringe) 10 ml IVP 0100,0900,1700 [facility] Last Admin: 06/25/23 16:43 Dose: Not Given Throat Lozenges (Benzocaine/Menthol Lozenge) 1 lozenge MM Q2HR PRN PRN Reason: Throat pain Timolol Maleate (Timolol 0.5% Ophth Drops) 1 drops RIGHTEYE BID [facility] Last Admin: 06/25/23 08:29 Dose: 1 drops Atorvastatin [Lipitor] 20 mg PO HS 12/01/22 Lidocaine Patch 5% [Lidoderm Patch] 1 each TOP DAILY 12/01/22 Losartan Potassium 25 mg PO DAILY 12/01/22 Metoprolol Tartrate [Lopressor] 25 mg PO DAILY 12/01/22 Naloxone HCl [Narcan] 4 mg NS ONCE PRN 12/01/22 Timolol 0.5% Ophth Drops [Timoptic 0.5% Ophth Drops] 1 drops OPTH BID 12/01/22 Amitriptyline [Elavil] 10 mg PO HS 06/11/23 Docusate Sodium [Dulcolax Stool Softener] 100 mg PO DAILY 06/11/23 Furosemide [Lasix] 40 mg PO DAILY 06/11/23 hydroCHLOROthiazide [Hydrodiuril] 25 mg PO DAILY 06/11/23 metFORMIN [Glucophage] 500 mg PO DAILY 06/11/23 Estrogens, Conjugated [Premarin] 0.625 mg PO DAILY 06/14/23 Glipizide [Glipizide ER] 5 mg PO DAILY 06/14/23 Insulin Glargine [Lantus Solostar] 10 units SUBQ HS 06/14/23 allopurinoL [Allopurinol] 300 mg PO DAILY 06/14/23 Objective - Vital Signs/Intake & Output Reviewed Vital Signs: Yes Vital Signs: Vital Signs x48h Temp Pulse Resp BP Pulse Ox 06/25/23 15:33 36.7 C 79 16 131/61 H 98 Intake & Output: Intake & Output 06/22/23 06/23/23 06/24/23 06/25/23 23:59 23:59 23:59 23:59 Intake Total 540 720 340 300 Output Total 1250 1225 1150 875 [facility] -710 [phone] - Objective General Appearance: positive: No acute distress (Comfortable and sleeping most of the day.), Lethargic Eyes Bilateral: positive: PERRL, EOMI Neck: positive: No JVD Respiratory: positive: No respiratory distress. negative: Wheezes, Rales, Rhonchi Cardiovascular: positive: Regular rate & rhythm, Systolic murmur Abdomen: positive: Non-tender, No organomegaly, Nml bowel sounds, No distention Skin: positive: Warm, Dry Extremities: positive: Full ROM, No pedal edema Neurologic/Psychiatric: positive: Oriented x3, CN's nml (2-12), Motor nml (She is diffusely weak and needs a assist to get out of bed) - Lab Results Fish Bones: 06/23/23 06:40 06/23/23 06:40 Other Labs: Lab Results x24hrs 06/25/23 06/25/23 Range/Units 11:33 07:45 POC Whole Bld Glucose 200 H 105 H (70 - 100) mg/dL Assessment/Plan - Problem List (1) Aortic stenosis, severe Impression: At this time family has opted for discharge to assisted living facility with hospice. Recognizing that her end-of-life is near. Will try for POLST form again tomorrow. No new orders today. Just monitoring her glucose and making sure she does not go into congestive heart failure
--- NOTE | 2023-06-26 14:13 | PROVIDER PROGRESS NOTE ---
Subjective - Prog Note Date Prog Note Date: 06/26/23 Prog Note Time: 13:58 - Subjective Pt reports feeling: No change Subjective: RN was able to get her out of bed this morning. Put her in a chair. But the patient did not tolerate it for very long and wanted to go back in bed. But the patient was able to speak to me about POLST form. I did carefully explain this is his advance care planning with regards to getting plans in place for hospice. She has been very, understandably, sad when we talked about hospice and possible down the road. She usually cries. This morning she was very composed. She said that she understood. And I was able to fill out the POLST form and have her sign it. Current Medications - Current Medications Current Medications: Active Medications Cholecalciferol (Cholecalciferol 25 Mcg Tablet) 50 mcg PO DAILY [facility] Last Admin: 06/26/23 10:01 Dose: 50 mcg Dexamethasone (Dexamethasone 4 Mg Tablet) 2 mg PO DAILY [facility] Last Admin: 06/26/23 09:59 Dose: 2 mg Insulin Glargine-yfgn (Insulin Glargine-Yfgn 300 Unit/3 Ml Pen) 5 unit SUBQ QDAC [facility] Last Admin: 06/26/23 09:16 Dose: Not Given Insulin Human Lispro (Insulin Lispro 300 Unit/3 Ml Pen) 3 - 11 unit SUBQ 0800,1200,1700,2100 [facility]; Protocol Last Admin: 06/26/23 12:08 Dose: 5 unit Magnesium Oxide (Magnesium Oxide 400 Mg Tablet) 400 mg PO DAILYWM [facility] Last Admin: 06/26/23 10:01 Dose: 400 mg Metoprolol Tartrate (Metoprolol Tartrate 50 Mg Tablet) 75 mg PO BID [facility] Last Admin: 06/26/23 10:00 Dose: 75 mg Mirtazapine (Mirtazapine 15 Mg Tablet) 15 mg PO QPM [facility] Last Admin: 06/25/23 20:12 Dose: 15 mg Multi-Ingredient Ointment (Zinc Oxide 20% Oint 30 Gm Tube) 1 applic TOP PRN PRN PRN Reason: Skin Care Last Admin: 06/26/23 05:29 Dose: 1 applic Multivitamins/Folic Acid/Vitamin C (Multivitamin W/Iron, Minerals 15 Ml) 15 ml PO DAILY [facility] Last Admin: 06/26/23 10:00 Dose: 15 ml Ondansetron HCl (Ondansetron 4 Mg/2 Ml Vial) 4 mg IVP Q6HR PRN PRN Reason: Nausea / Vomiting Polyethylene Glycol (Polyethylene Glycol 3350 17 Gm Packet) 17 gm PO DAILY [facility] Last Admin: 06/26/23 10:01 Dose: Not Given Sodium Chloride (Sodium Chloride Flush 0.9% 10 Ml Syringe) 10 ml IVP PRN PRN PRN Reason: NEEDED PER PROVIDER ORDERS Last Admin: 06/24/23 01:51 Dose: 30 ml Sodium Chloride (Sodium Chloride Flush 0.9% 10 Ml Syringe) 10 ml IVP 0100,0900,1700 [facility] Last Admin: 06/26/23 10:08 Dose: Not Given Throat Lozenges (Benzocaine/Menthol Lozenge) 1 lozenge MM Q2HR PRN PRN Reason: Throat pain Timolol Maleate (Timolol 0.5% Ophth Drops) 1 drops RIGHTEYE BID [facility] Last Admin: 06/26/23 10:01 Dose: 1 drops Atorvastatin [Lipitor] 20 mg PO HS 12/01/22 Lidocaine Patch 5% [Lidoderm Patch] 1 each TOP DAILY 12/01/22 Losartan Potassium 25 mg PO DAILY 12/01/22 Metoprolol Tartrate [Lopressor] 25 mg PO DAILY 12/01/22 Naloxone HCl [Narcan] 4 mg NS ONCE PRN 12/01/22 Timolol 0.5% Ophth Drops [Timoptic 0.5% Ophth Drops] 1 drops OPTH BID 12/01/22 Amitriptyline [Elavil] 10 mg PO HS 06/11/23 Docusate Sodium [Dulcolax Stool Softener] 100 mg PO DAILY 06/11/23 Furosemide [Lasix] 40 mg PO DAILY 06/11/23 hydroCHLOROthiazide [Hydrodiuril] 25 mg PO DAILY 06/11/23 metFORMIN [Glucophage] 500 mg PO DAILY 06/11/23 Estrogens, Conjugated [Premarin] 0.625 mg PO DAILY 06/14/23 Glipizide [Glipizide ER] 5 mg PO DAILY 06/14/23 Insulin Glargine [Lantus Solostar] 10 units SUBQ HS 06/14/23 allopurinoL [Allopurinol] 300 mg PO DAILY 06/14/23 Objective - Vital Signs/Intake & Output Reviewed Vital Signs: Yes Vital Signs: Vital Signs x48h Temp Pulse Resp BP Pulse Ox 06/26/23 07:48 36.4 C L 82 18 152/60 H 98 Intake & Output: Intake & Output 06/23/23 06/24/23 06/25/23 06/26/23 23:59 23:59 23:59 23:59 Intake Total 720 340 330 350 Output Total 1225 1150 1200 250 Balance -505 -810 -870 100 - Objective General Appearance: positive: Alert (Short statured elderly black female in no acute distress with regards to respiration), Other (She will awaken, speak to me for the time that I am keeping her awake.. But then she falls immediately back asleep) Eyes Bilateral: positive: PERRL, EOMI Neck: positive: No JVD. negative: Stiff neck Respiratory: positive: No respiratory distress. negative: Wheezes, Rales, Rhonchi Cardiovascular: positive: Regular rate & rhythm, Systolic murmur Abdomen: positive: Non-tender, No organomegaly, Nml bowel sounds, No distention Skin: positive: Warm, Dry Extremities: positive: Full ROM Neurologic/Psychiatric: positive: Oriented x3, CN's nml (2-12), Motor nml - Lab Results Fish Bones: 06/23/23 06:40 06/23/23 06:40 Other Labs: Lab Results x24hrs 06/26/23 06/26/23 Range/Units 11:09 07:43 POC Whole Bld Glucose 194 H 92 (70 - 100) mg/dL Assessment/Plan - Problem List (1) Aortic stenosis, severe Impression: patient presented as failure to thrive when she was admitted. She had electrolyte abnormalities, UTI, and dehydration. She was not eating much. All of these problems have been addressed. She was even given tube feeds to address lack of eating to see if that would give her strength so that she could then eat on her own. Once the tube feeds were pulled, she still is not able to eat on her own. The family and she has been struggling with this end-stage diagnosis. Very emotionally difficult for them. They have been unable to make decisions with regards to disposition and finally got to a place this week where they have agreed to her returning to home which is an assisted living facility with [facility]. This was decided on June 24. However hospice cannot take the patient until June 28. In the assisted living facility will not accept the patient until hospice opens her. As such plan is for discharge June 28. POLST form filled today with DO NOT RESUSCITATE status, comfort measures as of focus. I will send the comfort pack to the pharmacy today. Pharmacy is closed and most likely will receive it tomorrow on Tuesday. But it should be available by the afternoon so family can pick it up on Tuesday afternoon for the patient is discharged on Tuesday.
--- NOTE | 2023-06-27 10:40 | Discharge Plan ---
Discharge Plan for SNF / [facility] - Discharge Plan And Transition Orders Problem Reviewed?: Yes - SNF / [facility] Transition Orders Admit to (Facility): [facility] Under the care of (Name): Hospice Discharge Diagnosis: (1) Aortic stenosis, severe She was being evaluated for being a TAVR candidate. This will no longer be the plan, given her sleepiness, altered mental status, anorexia and FTT. (2) AMS (altered mental status) She lived in [facility] and had a gradual decline in functional status with a sharp decline over the last 2 months accompanied by sleepiness, altered mental status, and anorexia. (3) FTT Patient received 4 days of ng tube feedings, and was started on Remeron, and still does not want food or liquids, and sleeps most of the day. Palliative Care was involved. She will be under Hospice care going forward. (4) Diarrhea. Resolved after NG feeds stopped (5) Prerenal azotemia Stable (6) DM type 2 Stable. Comfort eating is the plan. (7) CHF, chronic diastolic Echocardiogram showed LVEF 70%. She has not been hypoxic and has not required any Lasix this admission. (8) Hypomagnesia Replaced (9) Hypophosphatemia Replaced (10) Anemia Stable (11) Urinary tract infection Treated (12) Acute on chronic renal insufficiency Resolved, baseline creat is 1.4 (13) Tachycardia Resolved with treatment Medicare Certification Statement: Notify PCP of admission and forward orders to Hospice provider for signature. Other Notification Orders: Call PCP immediately if patient develops dyspnea, chest pain/tightness or edema. House Bowel Program: Yes Additional Bowel Program Orders: If no BM after 2 days, nurse may give M.O.M. 30ml PO PRN and/or ducolax Supp 1 NE and/or ARLENE 250mg P.O., and/or senna 1-2 tabs PO. On day 3 nurse may give repeat above order until residents constipation is resolved. Annual Influenza Vaccine (between Jan 07 and August 06): Yes Two-step PPD per [facility] [id number] or approved exception documents: Yes Treatments & Other Orders: OOB with lift into a chair PRN Medication Orders: PLEASE REFER TO THE DISCHARGE MEDICATION LIST. Insulin Orders?: No - Diet Type: Geriatric Texture: Mech soft Liquids: Thin May have monthly special meal: Yes <Elizabeth Campa - Last Filed: 06/28/23 08:35> - Discharge Plan And Transition Orders Problem Reviewed?: Yes - SNF / [facility] Transition Orders Medicare Certification Statement: I certify that [facility] is medically necessary on a continuing basis for any of the conditions for which she/he is receiving care during hospitalization. Notify PCP of admission and forward orders to primary provider for signature. Other Notification Orders: Call PCP immediately if patient develops dyspnea, chest pain/tightness or edema. Additional Bowel Program Orders: If no BM after 2 days, nurse may give M.O.M. 30ml PO PRN and/or ducolax Supp 1 NE and/or ARLENE 250mg P.O., and/or senna 1-2 tabs PO. On day 3 nurse may give repeat above order until residents constipation is resolved. Medication Orders: PLEASE REFER TO THE DISCHARGE MEDICATION LIST. <Mela Lopez - Last Filed: 06/28/23 16:43> - Discharge Plan And Transition Orders Disposition: 50 Hospice/Home DC/Xfer Condition: Poor Allergies and Adverse Reactions: Allergies Allergy/AdvReac Type Severity Reaction Status Date / Time codeine AdvReac Unknown Verified 06/01/23 20:42 lisinopril AdvReac Unknown Verified 06/01/23 20:42 methocarbamol [From Robaxin] AdvReac Unknown Verified 06/01/23 20:42 nicotine [From Nicoderm CQ] AdvReac Unknown Verified 06/11/23 10:51 Health Concerns: The patient was admitted with obtundation, dehydration, UTI. She refused food and liquids. The family wanted us to try NG tube feedings which we did. When the tube was removed, she did not restart eating on her own. She now will not be a candidate to have a TAVR. She will be discharged back to where she resided, in [facility], and will be under Hospice care with goal being comfort. Plan of Treatment: As above. Care Goals: Patient's comfort. Assessment: The patient and family understand and are agreeable with the plan. - Medications New Prescriptions: LORazepam [Ativan] 0.5 mg PO Q6H PRN #10 tablet PRN Reason: Anxiety Bisacodyl Supp [Dulcolax Supp] 10 mg NE DAILY PRN #3 supp PRN Reason: Constipation Metoprolol Tartrate [Lopressor] 50 mg PO BID #60 tab Morphine Sulfate 5 mg PO Q4H PRN #30 ml PRN Reason: Moderate to Severe pain. Senna [Senokot] 8.6 mg PO BID PRN #10 tablet PRN Reason: Constipation OLANZapine ODT [Zyprexa Odt] 5 mg TL BID PRN #10 tablet PRN Reason: Nausea / Vomiting
--- NOTE | 2023-06-28 08:43 | DISCHARGE SUMMARY ---
"Discharge Summary Admit Date: 06/11/23 Discharge Date: 06/28/23 Discharging Provider: Elziabeth Campa MD Primary Care Provider: Cheryl Parson NP Code Status: Do Not Attempt Resuscitation Condition at Discharge: Poor Discharge Disposition: 50 Hospice/Home DC/Xfer - HPI History of Present Illness: Deidra Marrufo is a 77-year-old -[place] woman who presented to the emergency room, brought in due to weakness and altered mental status. Patient has been complaining of increased weakness for approximately 2 weeks. She was seen in the emergency room on June 01, 2023 and given IV fluids. Urinalysis was concerning for possible urinary tract infection and she was discharged from the emergency room on antibiotics. Other recent symptoms include increased shortness of breath and nausea. In the emergency room, a viral panel was performed that was negative. Urinalysis was also negative and chest x-ray demonstrates cephalization of vessels with no obvious opacification/focus of infection. Her significant other reports less oral intake over the last several weeks. Her labs showed dehydration, Na 127, BUN/creat 121/3.3 (usual creat is 0.6). She will be admitted for AMS and KHANH. Her CODE status is Full Code. - CONSULTS | PROCEDURES Consultations: Palliative Care - HOSPITAL COURSE Hospital Course: (1) AMS (altered mental status) She lived in [facility] and had a gradual decline in functional status with a sharp decline over the last 2 months accompanied by sleepiness, altered mental status, and anorexia. (2) FTT Family requested that we give her a chance to become more alert, thus she received 4 days of ng tube feedings, and was started on Remeron to stimulate her diet. Palliative Care was involved. After the ng feeds were stopped, she still did not want food or liquids, and slept most of the day. She herself signed a DNR and will be under Hospice care going forward. (3) Aortic stenosis, severe Several days after being admitted, the family revealed to us that she was being evaluated for being a TAVR candidate. We received records which confirmed that. A TAVR can no longer be the plan, given her altered mental status, hypersomnolence, weakness, anorexia and FTT. (4) Diarrhea. Resolved after NG feeds stopped (5) Prerenal azotemia Improved after iv and ng fluids. Creat was 0.6. (6) DM type 2 We stopped her Glipizide and first a Diabetic diet then any food (comfort feeding) was ordered. She was on sliding scale Insulin. Comfort eating is still the plan. (7) CHF, chronic diastolic Echocardiogram showed LVEF 70%. She had not been hypoxic and did not required any Lasix this admission. (8) Hypomagnesia Replaced (9) Hypophosphatemia Replaced (10) Anemia Hgb dropped from 12.3 at admission to 8.6, this was due to getting iv fluids. Hgb was stable after it plateaued at 8.5. (11) Urinary tract infection Completed a course of treatment while here (12) Acute renal insufficiency The creat of 3.3 at admission resolved with iv and ng fluids (13) Tachycardia Resolved with iv hydration and increase of her Toprol dose. - ALLERGIES Allergies/Adverse Reactions: Allergies Allergy/AdvReac Type Severity Reaction Status Date / Time codeine AdvReac Unknown Verified 06/01/23 20:42 lisinopril AdvReac Unknown Verified 06/01/23 20:42 methocarbamol [From Robaxin] AdvReac Unknown Verified 06/01/23 20:42 nicotine [From Nicoderm CQ] AdvReac Unknown Verified 06/11/23 10:51 - MEDICATIONS Home Medications: Ambulatory Orders Medication Instructions Recorded Confirmed Lidocaine Patch 5% [Lidoderm Patch] 1 each TOP DAILY 12/01/22 06/11/23 Timolol 0.5% Ophth Drops [Timoptic 1 drops OPTH BID 12/01/22 06/11/23 0.5% Ophth Drops] Bisacodyl Supp [Dulcolax Supp] 10 mg [place] DAILY PRN #3 supp 06/27/23 LORazepam [Ativan] 0.5 mg PO Q6H PRN #10 tablet 06/27/23 Morphine Sulfate 5 mg PO Q4H PRN #30 ml 06/27/23 OLANZapine ODT [Zyprexa Odt] 5 mg TL BID PRN #10 tablet 06/27/23 Senna [Senokot] 8.6 mg PO BID PRN #10 tablet 06/27/23 Metoprolol Tartrate [Lopressor] 50 mg PO BID #60 tab 06/28/23 Zinc Oxide 20% Oint [Zinc Oxide] 1 applic TOP PRN PRN each 06/28/23 - PHYSICAL EXAM AT DISCHARGE General Appearance: positive: No acute distress, Lethargic Eyes Bilateral: positive: EOMI, No lid inflammation ENT: positive: ENT inspection nml, No signs of dehydration Neck: positive: Nml inspection, No JVD Respiratory: positive: No respiratory distress, Breath sounds nml Cardiovascular: positive: Irregularly irregular, Systolic murmur Abdomen: positive: Non-tender, No distention Skin: positive: Warm, Dry, Pallor Extremities: positive: No pedal edema Neurologic/Psychiatric: positive: CN's nml (2-12), Other (Lethargic, sleeps most of day, awakens and speaks 2-3 word sentences) - LABS Result Diagrams: 06/23/23 06:40 06/23/23 06:40 - DIAGNOSTIC IMAGING Diagnostic Imaging Results: Final report reviewed - FOLLOW UP Follow Up: She is under Hospice care. - TIME SPENT Time Spent in Discharge (Minutes): 45"
[2023-06-28 08:48] VITALS: BP 141/63; O2SAT 98
== END 2023-06-28 14:50 | disposition hospice, home (50) | DRG 683 ==
LOC: ED 10:34 → MS2 15:21
PROVIDERS: ADMIT Internal Medicine; ATTEND Internal Medicine
PROC: 02HV33Z Insertion of Infusion Device into Superior Vena Cava, Percutaneous Approach (ICD-10-PCS; 2023-06-11)
PROC: 0DH67UZ Insertion of Feeding Device into Stomach, Via Natural or Artificial Opening (ICD-10-PCS; principal; 2023-06-16)
PROC: 3E0G76Z Introduction of Nutritional Substance into Upper GI, Via Natural or Artificial Opening (ICD-10-PCS; 2023-06-16)
DX: N17.9 Acute kidney failure, unspecified (principal); N28.9 Disorder of kidney and ureter, unspecified; M79.10 Myalgia, unspecified site; E87.0 Hyperosmolality and hypernatremia; E87.1 Hypo-osmolality and hyponatremia; D72.829 Elevated white blood cell count, unspecified; I50.32 Chronic diastolic (congestive) heart failure; R63.0 Anorexia; Z68.32 Body mass index [BMI] 32.0-32.9, adult; J02.9 Acute pharyngitis, unspecified; I10 Essential (primary) hypertension; N39.0 Urinary tract infection, site not specified; I13.0 Hypertensive heart and chronic kidney disease with heart failure and stage 1 through stage 4 chronic kidney disease, or unspecified chronic kidney disease; R11.0 Nausea; R41.82 Altered mental status, unspecified; R62.7 Adult failure to thrive; I35.0 Nonrheumatic aortic (valve) stenosis; R19.7 Diarrhea, unspecified; R79.89 Other specified abnormal findings of blood chemistry; E11.9 Type 2 diabetes mellitus without complications; E83.42 Hypomagnesemia; E86.0 Dehydration; E83.39 Other disorders of phosphorus metabolism; D64.9 Anemia, unspecified; R00.0 Tachycardia, unspecified; R53.1 Weakness; I25.10 Atherosclerotic heart disease of native coronary artery without angina pectoris; E78.00 Pure hypercholesterolemia, unspecified; E11.22 Type 2 diabetes mellitus with diabetic chronic kidney disease; N18.9 Chronic kidney disease, unspecified; R91.8 Other nonspecific abnormal finding of lung field; Z51.5 Encounter for palliative care; Z79.84 Long term (current) use of oral hypoglycemic drugs; Z66 Do not resuscitate
CPT/HCPCS: 36415; 51701; 70450; 71045; 80048; 80053; 81001; 83605; 83690; 83735; 84100; 84134; 84443; 84484; 85025; 87493; 87633; 93005; 93307; 97162; 97166; 97530; 99285; A9270; J1815; J8499; J8540; 81003; 87086

== ENCOUNTER 2023-06-28 14:51 | Outpatient (CLI) | payer MEDICARE, MEDICAID | END 2023-06-28 23:59 | disposition home or self-care (01) | LOC: EMS 14:51 | PROVIDERS: ATTEND Specialist | DX: Z51.5 Encounter for palliative care (principal); R41.82 Altered mental status, unspecified; R62.7 Adult failure to thrive; I35.0 Nonrheumatic aortic (valve) stenosis; Z74.01 Bed confinement status | CPT/HCPCS: A0425; A0428 ==

== ENCOUNTER 2023-06-30 08:00 | Outpatient (CLI) | payer MEDICARE, MEDICAID ==
[2023-06-30 13:09] LABS: ALBUMIN 2.8 g/dL (3.2-5.5); ALBUMIN/GLOBULIN RATIO 1.1 (1.0-2.2); BILIRUBIN,TOTAL 0.4 mg/dL (0.2-1.0); CALCIUM 8.3 mg/dL (8.5-10.3); CREATININE 0.6 mg/dL (0.6-1.3); MAGNESIUM 1.1 mg/dL (1.7-2.3); PHOSPHORUS 3.3 mg/dL (2.5-5.0); POTASSIUM 3.9 mmol/L (3.5-4.5); TOTAL PROTEIN 5.3 g/dL (6.4-8.9)
[2023-06-30 13:14] LABS: BASOPHILS % (AUTO) 0.5 %; EOSINOPHILS % (AUTO) 0.4 %; HGB - HEMOGLOBIN 8.3 g/dL (12.0-16.0); LYMPHOCYTES % (AUTO) 17.6 %; MEAN CORPUSCULAR HEMOGLOBIN 29.6 pg (27.0-31.0); MEAN CORPUSCULAR HGB CONC 31.9 g/dL (32.0-36.0); MEAN CORPUSCULAR VOLUME 92.9 fL (81.0-99.0); MEAN PLATELET VOLUME 9.6 fL (7.9-10.8); NEUTROPHILS % (AUTO) 67.2 %; PLT - PLATELET COUNT 260 10^3/uL (130-450); RED CELL DISTRIBUTION WIDTH 16.6 % (12.0-15.0); WHITE BLOOD COUNT 10.1 x10^3/uL (4.8-10.8)
[2023-06-30 13:43] LABS: SLIDE REVIEW? Indicated
[2023-06-30 13:44] LABS: ABNORMAL LYMPHS % (MANUAL) 0 %
[2023-06-30 13:47] LABS: BAND NEUTROPHILS % (MANUAL) 1 %; EOSINOPHILS # (MANUAL) 0.1 10^3/uL (0-0.7); LYMPHOCYTES # (MANUAL) 1.8 10^3/uL (1.5-3.5); LYMPHOCYTES % (MANUAL) 18 %; METAMYELOCYTES % (MANUAL) 3 %; MONOCYTES # (MANUAL) 1.2 10^3/uL (0.0-1.0); MYELOCYTES % (MANUAL) 2 %; NEUTROPHILS # (MANUAL) 6.5 10^3/uL (1.5-6.6); RBC MORPHOLOGY (MULTIPLE) 2+ ANISOCYTOSIS (NORMAL)
[2023-06-30 13:48] LABS: DIFFERENTIAL COMMENT MANUAL DIFFERENTIAL
== END 2023-06-30 23:59 | disposition home or self-care (01) ==
LOC: LAB.R 08:00
PROVIDERS: ATTEND Family Medicine
DX: I35.0 Nonrheumatic aortic (valve) stenosis (principal)
CPT/HCPCS: 80053; 83735; 84100; 85025

== ENCOUNTER 2023-08-11 09:44 | Outpatient (CLI) | payer OTHER | END 2023-08-11 09:45 | disposition home or self-care (01) | LOC: EMS 09:44 | PROVIDERS: ATTEND Family Medicine | DX: Z74.01 Bed confinement status (principal) | CPT/HCPCS: A0425; A0429 ==